=== PATIENT | female | born 1940 | race Caucasian/White ===

== ENCOUNTER 2017-09-09 10:27 | Day surgery (SDC) | payer OTHER, SELFPAY ==
[2017-09-09] VITALS (9 sets, daily range): BP systolic 110–178; BP diastolic 50–81; PULSE 70–83; RESP 11–20; TEMP 36.3–36.7; O2SAT 95–99; BMI 23.5
[2017-09-09] MEDS: SODIUM CHLORIDE 0.9% 1,000 ML 70 ML IV (11:03)
--- NOTE | 2017-09-09 11:07 | PM.HP.1 ---
History of Present Illness Date Patient Seen: 09/09/17 Chief complaint: colonoscopy [id number] Narrative: The patient is a 76-year-old female with history of stage I colon cancer 2011 status post sigmoid colectomy who is here for surveillance colonoscopy. Patient has a history of constipation for which she takes stool softener but otherwise has no significant abdominal symptoms. Last colonoscopy performed August 2012 showed a sigmoid anastomosis and 3 hyperplastic polyps Patient History Family & Social History Social History: household members spouse Meds Home Medications Medication Instructions Recorded Confirmed Type metoprolol tartrate [Lopressor] 100 mg PO Q PM #0 06/26/10 09/09/17 History simvastatin 40 mg PO QDAYPM #0 06/26/10 09/09/17 History VITAMIN D (Vitamin D3) 1,000 unit PO QDAY #0 07/02/10 09/09/17 History vitamin B complex [B 1 tab PO QDAY #0 01/22/16 09/09/17 History Complex-Vitamin B12] fluoxetine [Prozac] 30 mg PO QDAY #0 03/04/16 09/09/17 History aspirin 325 mg PO DAILY 09/09/17 09/09/17 History Allergies Allergy/AdvReac Type Severity Reaction Status Date / Time No Known Allergies Allergy Uncoded 09/09/17 10:51 Review of Systems Review of Systems All systems reviewed & are unremarkable except as noted in HPI and below Exam Vital Signs (past 8 hours): - 09/09/17 10:54 Temperature 97.4 F L Pulse Rate 83 Respiratory Rate 20 Blood Pressure 178/81 H Pulse Oximetry 99 Oxygen Delivery Method Room Air Narrative Exam Narrative: General: Patient is well developed, not in apparent distress Cardiovascular: Regular rate and rhythm, no murmurs, rubs, or gallops; no evidence of edema; no palpable abdominal aortic aneurysm Gastrointestinal: Normoactive bowel sounds, soft, nontender, nondistended, no rebound tenderness, no hepatosplenomegaly, no evidence of hernia; positive surgical scar Assessment & Plan Plan: Assessment/Plan Narrative: 76-year-old female with a history of stage I colon cancer in 2010 who is here for surveillance colonoscopy. She currently has no active GI symptoms Regarding the procedure(s), the risks and potential complications, benefits, and alternatives (including not doing the procedure) were discussed with the patient. The risks include but are not limited to bleeding, infection, perforation which may require surgical intervention, missed lesions, and adverse reactions to sedative medicines. After a question and answer period, the patient agreed to proceed with the procedure(s) and gives informed consent.
--- NOTE | 2017-09-09 11:50 | PM.OP.ENDO ---
Operative Date/Time/Diagnoses Date of procedure: 09/09/17 Procedure Notes Procedure in detail: Surgeon: Tong Valenzuela MD Procedure: Colonoscopy Preoperative diagnosis: History of colon cancer 2010, patient here for surveillance Postoperative diagnosis: End-to-side anastomosis 20 cm proximal to the anal canal, grade 1 internal hemorrhoids Medications: Conscious sedation using 4 mg IV of Midazolam and 100 mcg IV of Fentanyl Preanesthesia Assessment An H and P was performed/updated and the Px?s ASA class is 2. The procedure was discussed in detail with the patient. The potential risks and complications including infection, bleeding, missed lesions, perforation, need for surgery in case of perforation, prolonged hospital stay, and were explained. A brief question and answer period was allotted and once all questions were answered, informed consent was obtained. The patient was brought back to the procedure room and placed on standard monitoring. The patient?s vital signs were monitored continuously throughout the entire procedure. Prior to starting, a timeout was performed to confirm the patient?s identity, allergies, medications, and procedure. Procedure in detail The patient was placed in left lateral decubitus position and once adequate sedation was obtained a MIKI was performed. The rectal examination did not reveal any palpable lesions. The tip of the colonoscope was placed in the anal canal and advanced without difficulty all the way to the cecum which was identified by the appendiceal orifice and ileocecal valve. Careful examination of all abrams of the colon was performed with irrigation of any residual stool. The mucosa throughout the entire colon appeared normal. An end-to-side anastomosis was visualized at 20 cm proximal to the anal canal. The anastomosis appeared healthy with no evidence of nodularity or inflammation. Retroflexion was performed in the rectum which revealed grade 1 internal hemorrhoids The patient tolerated the procedure well and will be brought back to the recovery area to be discharged once criteria are met. The prep was judged to be good/excellent and adequate to identify polyps less than 5 mm. The withdrawal time was 8 min. The total procedure time from initial sedation was 18 mins. Complications There were no complications and estimated blood loss was zero. Recommendations: Resume previous diet Continue outPx medications Repeat colonoscopy in 5 years for surveillance Office follow up as needed An emergency contact number was given to the patient for any complications related to the procedure
[2017-09-09] MEDS: MIDAZOLAM 5 MG/5 ML VIAL IV (12:05)
[2017-09-09] MEDS: fentaNYL 250 MCG/5 ML INJ IV (12:06)
--- NOTE | 2017-09-09 12:17 | PM.DS.1 ---
History of Present Illness Chief complaint: colonoscopy [id number] Narrative: The patient is a 76-year-old female with history of stage I colon cancer 2011 status post sigmoid colectomy who is here for surveillance colonoscopy. Patient has a history of constipation for which she takes stool softener but otherwise has no significant abdominal symptoms. Last colonoscopy performed August 2012 showed a sigmoid anastomosis and 3 hyperplastic polyps Discharge Providers Primary care physician: Gio Viera MD Discharge provider: Tong Valenzuela MD Exam Vital Signs (past 8 hours): - 09/09/17 10:54 Temperature 97.4 F L Pulse Rate 83 Respiratory Rate 20 Blood Pressure 178/81 H Pulse Oximetry 99 Oxygen Delivery Method Room Air Narrative Exam Narrative: General: Patient is well developed, not in apparent distress Cardiovascular: Regular rate and rhythm, no murmurs, rubs, or gallops; no evidence of edema; no palpable abdominal aortic aneurysm Gastrointestinal: Normoactive bowel sounds, soft, nontender, nondistended, no rebound tenderness, no hepatosplenomegaly, no evidence of hernia; positive surgical scar Discharge Plan Discharge Plan Patient Disposition: Home, Self-Care Discharge Med Rec/Prescriptions Prescriptions: Continue metoprolol tartrate [Lopressor] 100 MG tablet 100 mg PO Q PM Qty: 0 RF: 0 simvastatin 40 MG tablet 40 mg PO QDAYPM Qty: 0 RF: 0 VITAMIN D (Vitamin D3) 1,000 unit PO QDAY Qty: 0 RF: 0 vitamin B complex [B Complex-Vitamin B12] 1 EACH tablet 1 tab PO QDAY Qty: 0 RF: 0 fluoxetine [Prozac] 10 MG capsule 30 mg PO QDAY Qty: 0 RF: 0 aspirin 325 mg Tablet 325 mg PO DAILY RF: 0 Discharge Orders: Discharge (Order); Ordered 09/09/17 Ordered By: Tong Valenzuela Provider Discharge Instructions Diet: Diet as Tolerated Visit Report/Discharge Packet Stand Alone Forms: Surgery Discharge Discharge Data Primary Care Provider: Gio Viera V Attending Provider: Tong Valenzuela
== END 2017-09-09 13:15 | disposition home or self-care (01) ==
PROVIDERS: Family Provider Internal Medicine; PCP Internal Medicine; Visit Provider Internal Medicine Gastroenterology
PROC: 0DJD8ZZ Inspection of Lower Intestinal Tract, Via Natural or Artificial Opening Endoscopic (ICD-10-PCS; CPT 45378; principal; 2017-09-09 11:30)
DX: Z85.038 Personal history of other malignant neoplasm of large intestine (principal)
CPT/HCPCS: G0105; J2250; J3010

== ENCOUNTER → 2017-12-11 11:35 | Outpatient (CLI) | payer OTHER, SELFPAY ==
--- NOTE | 2017-12-11 | DI.CT.S_ITS ---
PROCEDURE: CT UE RT WO CON INDICATIONS: PRIMARY OSTEOARTHRITIS OF RIGHT SHOULDER. RIGHT SHOULDER PAIN TECHNIQUE: Noncontrast 1-1.5 mm thick sections acquired from the acromioclavicular joint to the inferior scapula, with coronal and sagittal reformatting. COMPARISON: None. FINDINGS: Image quality: Excellent. Bones: Examination of right shoulder osseous structures shows moderate acromioclavicular joint osteoarthritis and severe glenohumeral joint osteoarthritis. There is significant glenohumeral joint space narrowing with extensive subchondral sclerosis and cyst formation and prominent inferior marginal osteophyte formation. No acute fracture or dislocation is seen. No suspicious bony lesions. No gross rib abnormalities are seen in visualized right upper ribs. Soft tissues: There is suggestion of moderate amount of glenohumeral joint effusion and fluid within the subcoracoid bursa. Possible loose body measures 1 cm in size is noted within the subcoracoid bursa. Small amorphous calcification adjacent to greater tuberosity of humeral head is seen suggestive of calcific tendinitis. Dependent atelectasis in visualized portion of. Right upper lung field is seen. No pleural effusion or pneumothorax. IMPRESSION: 1. Moderate to severe glenohumeral joint osteoarthritis and moderate acromioclavicular joint osteoarthritis. No fracture or dislocation. 2. Moderate amount of fluid is seen within glenohumeral joint and subcoracoid bursa with possible 1 cm loose body in subcoracoid bursa. 3. Calcification adjacent to greater tuberosity of humeral head which may represent calcific tendinitis. Dictated by: Yandel Rose M.D. on 12/11/2017 at 13:25 Approved by: Yandel Rose M.D. on 12/11/2017 at 13:54
== END ==
PROVIDERS: PCP Internal Medicine; Visit Provider Orthopaedic Surgery
DX: M19.011 Primary osteoarthritis, right shoulder (principal); M25.511 Pain in right shoulder; M25.811 Other specified joint disorders, right shoulder
CPT/HCPCS: 73200

== ENCOUNTER → 2018-03-02 14:49 | Outpatient (CLI) | payer OTHER, SELFPAY ==
[2018-03-02 14:59] LABS: Bacteria Urine None Seen; RBC Urine None Seen (0-5/HPF)
[2018-03-02 15:48] LABS: Hemoglobin A1C% w Est Avg Glu 5.5 % (4.0-6.0)
[2018-03-02 15:53] LABS: BUN Creatinine Ratio 24.3 (6-22); Blood Urea Nitrogen 17 mg/dL (7-17); Calcium 9.6 mg/dL (8.4-10.2); Carbon Dioxide 28 mmol/L (22-32); Chloride 98 mmol/L (98-107); Estimated Glomerular Filt Rate > 60.0 mL/min (>60); Glucose 104 mg/dL (80-110); HEMOLYSIS 15 (0-50); Potassium 4.3 mmol/L (3.4-5.1); Sodium 138 mmol/L (137-145)
[2018-03-02 15:54] LABS: Add Manual Diff / Slide Review NO; Basophils Absolute Auto 0 /uL (0-100); Basophils Percent Auto 0.9 % (0-2); Eosinophils Absolute Auto 200 /uL (0-450); Eosinophils Percent Auto 4.3 % (2-4); Hematocrit 37.3 % (36-46); Hemoglobin 12.7 g/dL (12.0-16.0); Lymphocytes Absolute Auto 1300 /uL (1100-4500); Lymphocytes Percent Auto 23.9 % (25-40); Mean Corpuscular Hemoglobin 32.9 PG (26-34); Mean Corpuscular Volume 96.8 fL (80-100); Monocytes Absolute Auto 600 /uL (0-900); Monocytes Percent Auto 11.8 % (3-14); Neutrophils Absolute Auto 3200 /uL (1500-7000); Neutrophils Percent Auto 59.1 % (50-75); Platelet Count 209 X10^3/uL (150-400); Red Blood Cell Count 3.85 X10^6/uL (4.0-5.2); Red Cell Distribution Width 12.7 % (11.6-14.8); White Blood Cell Count 5.3 X10^3/uL (4.5-11.0)
[2018-03-02 17:10] LABS: Appearance Urine UA CLEAR; Bilirubin Urine UA NEGATIVE (NEGATIVE); Color Urine UA YELLOW; Glucose Urine UA NEGATIVE (Negative); Ketones Urine UA TRACE (NEGATIVE); Leukocyte Esterase Urine UA NEGATIVE (NEGATIVE); Nitrite Urine UA NEGATIVE (Negative); Occult Blood Urine UA NEGATIVE (Negative); Protein Urine UA TRACE (Negative); Specific Gravity Urine UA >=1.030 (1.000-1.035); Urobilinogen Urine UA 0.2 E.U./dL (0.2)
[2018-03-02 17:27] LABS: Amorphous Sediment Urine 1+; Calcium Oxalate Crystals Urine Moderate; Squamous Epithelial Cell Urine 0-1 /HPF; WBC Urine 0-1/HPF (0-5/HPF)
[2018-03-02 17:28] LABS: Hyaline Casts Urine 1-5/LPF; Mucus Urine 1+ (Negative); Transferrin 296 mg/dL (206-381)
== END ==
PROVIDERS: PCP Internal Medicine; Visit Provider Orthopaedic Surgery
DX: E61.1 Iron deficiency (principal); N39.0 Urinary tract infection, site not specified; R73.9 Hyperglycemia, unspecified; Z01.818 Encounter for other preprocedural examination
CPT/HCPCS: 36415; 80048; 81001; 83036; 84466; 85025; 87086

== ENCOUNTER 2018-04-05 10:53 | Inpatient (IN) | payer OTHER, SELFPAY ==
[2018-03-22 10:39] VITALS: BMI 23.1
[2018-04-05] VITALS (12 sets, daily range): BP systolic 131–199; BP diastolic 52–93; PULSE 74–113; RESP 15–20; TEMP 36.2–36.8; O2SAT 95–100; BMI 23.0
--- NOTE | 2018-04-05 | DI.RAD.S_ITS ---
PROCEDURE: XR SHOULDER RT 1V INDICATIONS: RIGHT TOTAL SHOULDER TECHNIQUE: 2 views of the shoulder were acquired. COMPARISON: [facility], , SHOULDER MINIMUM 2 VIEW LEFT, 09/26/2013, 15:08. FINDINGS: Bones: Status post right shoulder arthroplasty. Expected postoperative alignment. No fractures or dislocations. No suspicious bony lesions. Visualized ribs appear intact. Soft tissues: Overlying postsurgical soft tissue changes IMPRESSION: Expected postoperative appearance Dictated by: Timothy Benitez M.D. on 04/05/2018 at 16:55 Approved by: Timothy Benitez M.D. on 04/05/2018 at 16:56
[2018-04-05] MEDS: CELECOXIB 200 MG CAPSULE PO (11:44)
[2018-04-05] MEDS: PREGABALIN 75 MG CAPSULE PO (11:44)
[2018-04-05] MEDS: ACETAMINOPHEN 325 MG TABLET 975 MG PO ×2 (11:44→20:26)
[2018-04-05] MEDS: LACTATED RINGERS 1,000 ML 42 ML IV ×2 (11:45→14:10)
--- NOTE | 2018-04-05 12:23 | PM.PREOP ---
Pre-operative Note Interval Note History & Physical reviewed/Exam performed by Physician: Yes Changes to H&P: Yes
[2018-04-05] MEDS: MIDAZOLAM 2 MG/2 ML VIAL IV (13:00)
[2018-04-05] MEDS: fentaNYL 100 MCG/2 ML INJ 50 MCG IV (13:00)
--- NOTE | 2018-04-05 13:10 | SUR.PREOP ---
Block start time [1300] . Monitoring initiated and maintained throughout procedure. Oxygen and medications given per anesthesiologist instructions. Patient remained stable throughout procedure, no adverse reactions noted. Block end time [1305].
--- NOTE | 2018-04-05 13:11 | SUR.PREOP ---
Nerve block done without ultrasound
[2018-04-05] MEDS: CEFAZOLIN 2 GM/100 ML FROZ.PIGGY IV (13:16)
--- NOTE | 2018-04-05 13:54 | SUR.OPER ---
Beach chair with skytron table shoulder positioner. Lower body on padded OR bed. Head in foam padded head cradle, secured with straps. Non-operative arm secured <90 degrees abduction. Pillow under knees. Safety belt at thigh. Cloth tape over blanket over lower legs.
[2018-04-05] MEDS: TRANEXAMIC ACID 1,000 MG VIAL 1000 MG INJ (14:00)
[2018-04-05] MEDS: THROMBIN (RECOMBINANT) 5,000 UNIT VIAL 5000 UNIT TOP (14:01)
[2018-04-05] MEDS: BUPIVACAINE 0.5% W/ EPI (PF) VIAL 30 ML INJ (14:01)
--- NOTE | 2018-04-05 15:47 | PM.OP.1 ---
Operative Date/Time/Diagnoses Date of procedure: 04/05/18 Time of procedure: 15:15 Pre-op diagnosis: Right shoulder osteoarthritis Post-op diagnosis: same Procedure & Clinicians Procedure: Right total shoulder replacement Same procedure as scheduled: Yes Indications: The patient has had progressively worsening right shoulder pain with radiographic changes consistent with arthritis. Non-operative management has failed and the patient has requested total shoulder replacement. The risks, benefits and alternatives to surgery were discussed with the patient prior to proceeding. Risks discussed included, but were not limited to, failure to relieve pain, stiffness, infection, nerve damage, deep venous thrombosis, pulmonary embolism, stroke, coma, heart attack, permanent paralysis and , as well as the potential need for eventual revision of the prosthetic. Surgeon: Stephen Overton [employer] Counter Manager: Viktor Hernandez Click Yes if Unassisted: No Anesthesia Type: General, Peripheral nerve block and Local Operative Notes Findings: Severe osteoarthritis of the glenohumeral joint with a Walch B2 glenoid. There was also very large osteophyte on the humeral head. Closure Type: primary Specimen(s): none sent Prosthetic devices, grafts, tissues, transplants, or devices: Implants used in this procedure were manufactured by the [employer] and included an Altivate size 14 mm short humeral stem, an all-polyethylene pegged E + Altivate 42 mm glenoid, a neutral neck and a 42mm X 20mm Yuma humeral head. Applied: drain(s) and implant(s) Estimated Blood Loss (mL): 100 Blood products transfused: none Procedure in detail: The patient was seen in the pre-operative area, where the patient identified the right shoulder as the operative site and this was marked with my initials. The patient received pre-operative antibiotics, underwent an interscalene block, and was taken to the operating room and placed on the operative table in the supine position. After satisfactory anesthesia, a full ?time out? was performed. The patient was repositioned in the ?beach chair? position using a dedicated positioner. All pressure points were well padded, and the knees were slightly bent to prevent tension on the sciatic nerves. The right arm was prepared from the fingers to the base of the neck with ChloroPrep in the usual fashion and draped through sterile drapes. An approximately 15 cm incision was created, starting at the clavicle above the coracoid process and extended towards the deltoid insertion. The deltopectoral interval was used to access the shoulder. The cephalic vein was taken medially. A self retaining retractor was placed. The upper centimeter of the pectoralis major tendon was released. The ?three sisters? were identified and cauterized. The axillary nerve was palpated and protected throughout the case. The biceps was released from its groove and tenodesed over the top of the pectoralis major tendon. The subscapularis was released from the lesser tuberosity with a subscapularis peel and tagged for later repair. The shoulder was dislocated and a cutting guide was used for the proximal humeral osteotomy in 30 degrees of retroversion. A starter reamer was used followed by the cylindrical reamers. This continued in larger sizes in till cortical bite was achieved. Sequential broaching was then performed until a line to line fit with the reamer occurred. A proximal humeral protector was then placed. We then removed the self-retaining retractor and placed retractors to access the glenoid. The subscapularis was released with a ?360 degree release? with care being taken to protect the axillary nerve with the inferior portion of this procedure. The remnant of labrum and biceps stump were removed. The appropriate size reamer was chosen with the glenoid sizer, and the guide pin placed. Care was taken to orient the pin according to the residual pitka's point glenoid rather than the neoglenoid. I digitally checked the exit point of the pin on the scapula and confirmed to be in the appropriate position. The glenoid was appropriately reamed, which differentially reamed the anterior and superior portions of the glenoid. The guide for the peripheral holes was used, placing all 3 holes on reamed bone, and the center hole enlarged. The trial glenoid was placed with good stability. We then cemented the final implant into place after irrigating the peg holes and drying them with thrombin-soaked Gelfoam. We returned our attention to the humerus, a trial humeral head was applied and a trial reduction performed. Stability was checked with initially excessive posterior translation due to the patient's preoperative posterior subluxation. I increase the neck length to the maximum possible with the Altivate humeral heads. This did not fully resolve the problem. We then opened the Yuma prosthetics and with an additional 2 mm of neck length this problem was resolved. At the conclusion of this there was 50% posterior translation with spontaneous reduction, 45? external rotation with the subscapularis held in the repaired position and approximately 70? of internal rotation in the ?scarecrow? position. This was felt to be satisfactory and the appropriate implants were opened. Five holes were drilled along the humeral osteotomy and #2 TiCron sutures placed for eventual subscapularis repair. The humeral prosthetic was impacted into the humerus. The humeral head was applied when the stem was still slightly proud and impacted to both seat the head and fully seat the stem. The joint was relocated one final time. The joint was irrigated and the subscapularis repaired to the previously placed sutures using Lalit-Gabriel sutures. The top of the subscapularis was closed to the leading edge of the supraspinatus with two figure of 8 #2 TiCron to close the rotator interval. Stability was once again checked and found to be satisfactory after subscapularis closure. A deep drain was placed and brought out supero-laterally. The deltopectoral interval was closed with interrupted 0 Vicryl. The subcutaneous layer was closed with 3-0 Vicryl, and the skin with a running 3-0 V-Lock suture and SteriStrips. An Aquacel Ag dressing was applied, the patient?s arm was placed in a sling, and the patient was taken to recovery having tolerated the procedure well. Complications: none Condition: stable Disposition: PACU Plan for aftercare: The patient will be maintained on a standard total shoulder replacement protocol with passive range of motion limited to 90 degrees forward flexion, 0 degrees external rotation at the side, 0 degrees abduction and internal rotation to the body. The patient will receive aspirin and sequential compression devices for DVT prophylaxis. The patient will be discharged home when safe for the home environment, likely tomorrow.
--- NOTE | 2018-04-05 16:41 | PC.NURSE ---
up from pacu via bed at 1615. Pt awake and alert. Denied any pain. Hemovac in place with bloody drainage in tube but not canister yet. Drsg to rt shoulder CDI
[2018-04-05] MEDS: LACTATED RINGERS 1,000 ML 125 ML IV (17:21)
[2018-04-05] MEDS: ASPIRIN EC 81 MG TABLET PO (20:26)
[2018-04-05] MEDS: CEFAZOLIN 1 GM/50 ML FROZ.PIGGY IV (20:26)
[2018-04-05] MEDS: SIMVASTATIN 40 MG TABLET PO (20:27)
--- NOTE | 2018-04-05 21:20 | PC.NURSE ---
evening note, pt arrived from pacu at 1615. Pt awake and alert, denied pain. Drsg has been CDI and arm in sling. Pt still unable to feel any pain or rt hand and unable to move that hand/fingers. Hand and fingers warm to touch and pulses palpable. Pt has been A&O, calm and cooperative.
[2018-04-06] MEDS: LACTATED RINGERS 1,000 ML 125 ML IV (00:43)
[2018-04-06] MEDS: CEFAZOLIN 1 GM/50 ML FROZ.PIGGY IV (04:41)
--- NOTE | 2018-04-06 04:57 | PC.NURSE ---
Addendum entered by Nelsy Hernández R.N. 04/06/18 06:39: Patient still unable to move R hand. Patient states that she thinks she can feel touch at a dull sensation. Original Note: NOC SHIFT Note: Patient doing well this shift. Patient reports that she can feel this RN touching her arm but it is a dull sensation. Patient able to move shoulder at this time 0500 but is unable to move her hand, fingers in R arm at this time. Patient denies pain at this time. Radial pulse 2+, Dressing clean and intact, hemovac patent.
[2018-04-06 05:29] LABS: Hematocrit 34.5 % (36-46); Hemoglobin 11.7 g/dL (12.0-16.0); Mean Corpuscular HGB Conc 33.9 % (30-36); Mean Corpuscular Hemoglobin 33.5 PG (26-34); Mean Corpuscular Volume 98.6 fL (80-100); Platelet Count 194 X10^3/uL (150-400); White Blood Cell Count 10.4 X10^3/uL (4.5-11.0)
--- NOTE | 2018-04-06 07:50 | PM.DS.1 ---
History of Present Illness Date Patient Seen: 04/06/18 Time Patient Seen: 07:50 Chief complaint: right shoulder [id number] Narrative: The history and physical is contained in the chart in a previously completed note. Please refer to that note for this information. Discharge Providers Date of admission: 04/05/18 10:53 Primary care physician: Gio Viera MD Consults: 04/05/18 16:10 Consult to Discharge Planning Routine Comment: Consult to Physical Therapy Evaluate & Treat Comment: Physician Instructions: Evaluate and Treat Discharge provider: Stephen Overton MD Discharge Date: 04/06/18 Summary Discharge Diagnosis: 1. Right shoulder osteoarthritis 2. Mild acute post hemorrhagic anemia Hospital Course: The patient was admitted to the hospital and taken directly to the operating room on April 05, 2018. She underwent a right total shoulder replacement without complications. At the time of this dictation she is comfortable although the block is still partially in place. It is anticipated she will be ready for discharge today. Status at Discharge Functional status at discharge: independent ambulation Overall status at discharge: patient is progressing back to baseline Time Spent with Patient Less than 30 minutes Exam Vital Signs (past 8 hours): Oxygen Delivery Method Room Air Oxygen Flow Rate 0 Narrative Exam Narrative: Right upper extremity wound is dressed with no drainage on the bandage. Light touch is intact in the axillary nerve distribution however absent in the remainder of the upper extremity. She is able to fire her deltoid but the remainder of her motor function is still absent presumably due to the block. Objective Labs Result Diagrams: 04/06/18 05:00 Labs: Laboratory Results - last 24 hr 04/06/18 05:00 WBC 10.4 RBC 3.50 L Hgb 11.7 L Hct 34.5 L MCV 98.6 MCH 33.5 MCHC 33.9 RDW 13.0 Plt Count 194 Discharge Plan Discharge Plan Patient Disposition: Home Discharge Med Rec/Prescriptions Prescriptions: New acetaminophen 325 mg Tablet 975 mg PO TID 30 Days Qty: 270 RF: 0 aspirin 81 mg Tablet,Delayed Release (Dr/Ec) 81 mg PO BID 42 Days Qty: 84 RF: 0 oxycodone 5 mg Tablet 5 mg PO Q3HR PRN (Reason: Pain, Moderate (4-6)) Qty: 40 RF: 0 Continued simvastatin 40 MG tablet 40 mg PO QDAYPM Qty: 0 RF: 0 vitamin B complex [B Complex-Vitamin B12] 1 EACH tablet 1 tab PO QDAY Qty: 0 RF: 0 metoprolol succinate 100 mg Tablet Extended Release 24 Hr 100 mg PO DAILY RF: 0 docusate sodium 100 mg Tablet 100 mg PO DAILY RF: 0 hydroxyzine HCl 25 mg Tablet 25 mg PO TID PRN (Reason: Spasms) RF: 0 Discontinued aspirin [Aspir-81] 81 mg Tablet,Delayed Release (Dr/Ec) 81 mg PO DAILY RF: 0 Follow up/Referrals: Gio Viera MD [Primary Care Provider] - Stephen Overton MD [Physician] - 2 Weeks Provider Discharge Instructions Diet: Diet as Tolerated and Regular Activity: You may move your right arm in front of your body below shoulder level. Cold/Heat Therapy: Apply ice to the right shoulder for 15 min every hour as needed for pain. Skin/Wound/Dressing Care Report to your healthcare provider any signs of infection, such as:: chills, fever, night sweats, increased pain, unusual drainage and unusual redness Dressing: Leave the dressing intact until your follow-up in the office. You may shower with the dressing in place. If the center strip of the dressing becomes saturated with either water or blood please contact the office. Visit Report/Discharge Packet Instructions: DI for Shoulder Replacement Stand Alone Forms: Surgery Discharge Discharge Data Primary Care Provider: Gio Viera V Attending Provider: Stephen Overton Admit Date/Time: 04/05/18 10:53 Quality VTE Deep Vein Thrombosis/Pulmonary Embolism Present on Admission: No
[2018-04-06 08:00] VITALS: BP 147/60; PULSE 80; RESP 16; TEMP 36.5; O2SAT 99
[2018-04-06] MEDS: POLYETHYLENE GLYCOL 3350 17 GM POWD.PACK PO (08:38)
[2018-04-06] MEDS: VITAMIN B COMPLEX 1 CAPSULE 1 CAP PO (08:38)
[2018-04-06] MEDS: ASPIRIN EC 81 MG TABLET PO (08:38)
[2018-04-06] MEDS: DOCUSATE 100 MG CAPSULE PO (08:38)
--- NOTE | 2018-04-06 10:20 | PT.IIE ---
Current Diagnoses Primary osteoarthritis, right shoulder (04/05/18) Surgery Performed Operation Date: 04/05/18 13:00 Actual Procedures p Total Shoulder Arthroplasty(Right) - Stephen Overton MD Surgical History (Last Updated 03/22/18 @ 11:19 by Elle Sandoval, RN) History of colonoscopy (Acute 09/09/17) History of lumpectomy of left breast (Acute ~02/2016) Hx of appendectomy (Acute) Hx of colectomy (Acute ~06/2010) Hx of heart artery stent (Acute ~1998) Hx of hernia repair (Acute ~1967) Medical History (Last Updated 03/22/18 @ 11:19 by Elle Sandoval RN) Arthritis (Acute) Breast cancer (Acute 01/07/16) Cardiac arrest (Acute ~12/1998) Cervical disc disease (Acute) Colon cancer (Acute 07/02/10) Constipation (Acute) Depression (Acute ~2015) HTN (hypertension) (Acute) Hyperlipidemia (Acute) Myocardial infarct (Acute ~12/1998) Osteoarthritis (Acute) Shoulder pain, bilateral (Acute) Skin cancer (Acute) Physical Therapy Inpatient Evaluation/Re-Eval M1 PT/OT-IP Prior Functional Status Start: 04/06/18 11:42 Freq: NEEDED Status: Active Protocol: Document 04/06/18 10:20 DLM (Rec: 04/06/18 11:57 DLM [email or web address]) Medical Review Prior Functional Status Medical History Reviewed Yes Diet/Fluid Consistency Regular Communication WNL Mobility and Gait Independent without device in community Activities of Daily Living and IADL's Independent, pt is right handed Social History Household Members spouse Living Arrangements House Number of Floors (Floors) One Floor Number of Stairs To Enter/Railing? 0 M2 PT-IP Current Condition Start: 04/06/18 11:42 Freq: NEEDED Status: Active Protocol: Document 04/06/18 10:20 DLM (Rec: 04/06/18 11:57 DLM [email or web address]) Physical Therapy Current Condition Current Condition Evaluation Date 04/06/18 Treatment Diagnosis right total shoulder arthroplasty Onset Date 04/05/18 Precautions Shoulder Precautions Sling PROM Internal Rotation to Body No External Rotation No Abduction Forward Flexion to 90 degrees Weight Bearing Status Weight Bearing Status Non-Weight Bearing M3 PT-IP Subjective Start: 04/06/18 11:42 Freq: NEEDED Status: Active Protocol: Document 04/06/18 10:20 DLM (Rec: 04/06/18 11:57 DLM [email or web address]) Subjective Physical Therapy Visit Type Type Initial Evaluation Visit Start Time 09:40 Visit Stop Time 10:20 Total Visit Minutes 40 Number of COMMERCIAL SINGER Visits 0 Physical Therapy Visit Comments Patient Comments She is having no pain in right shoulder, numbness throughout UE since surgery Patient Goals discharge home with assist from her Spouse Therapy Pain Assessment Pain When Pain Assessed During Mobility Pain Present Pain Present Denied Pain M4 PT-IP Mobility and Gait Start: 04/06/18 11:42 Freq: NEEDED Status: Active Protocol: Document 04/06/18 10:20 DLM (Rec: 04/06/18 11:57 DLM [email or web address]) PT-Bed Mobility Assessment Rolling Type of Rolling Roll to Left Level of Assist Independent Supine to Sit Supine to Sit Minimal Assistance Sit to Supine Sit to Supine Standby Assistance Scooting Scooting to Edge of Bed Independent PT-Transfer Assessment Sit to and From Stand Sit to and from Stand Independent Equipment Transfer Assistive Device None Gait Belt Transfers Transfer Destination Bed Toilet Transfer Technique Stand Step Pivot Transfer Ability Level of Assist Standby Assistance Gait Assessment Gait Gait Assistance Required: Standby Assistance Distance (Feet) 150 Assistive Devices Assistive Device None Gait Belt Gait Deviations General Gait Pattern Within Normal Limits Comments Gait Comments intermittent dizziness looking down that resolves quickly with looking back up PT-Balance Assessment Sitting Balance and Reactions Static Sitting Balance Ability Normal Dynamic Sitting Balance Ability Normal Standing Balance and Reactions Static Standing Balance Ability Good Dynamic Standing Balance Ability Good Device Used none M5 PT-IP Objective Assessments Start: 04/06/18 11:42 Freq: NEEDED Status: Active Protocol: Document 04/06/18 10:20 DLM (Rec: 04/06/18 11:57 DLM [email or web address]) Orientation Orientation/Cognition Level of Alertness Alert Orientation Name Age Birthday Month Date Year Day of Week Place Situation Language Function Ability No Deficits Noted Safety Awareness Understands Safety Issues Memory Description No Deficits Noted Gross Range of Motion Upper Extremity ROM Assessment Right Impaired Impairments post-op restrictions right shoulder, pt reports arthritic changes in left shoulder Lower Extremity ROM Assessment Within Functional Limits Strength Upper Extremity Strength Assessment Right Impaired Shoulder shoulder shrug only Elbow no active movement Wrist no active movement Hand no active movement Lower Extremity Strength Assessment Within Functional Limits Coordination Assessment Gross Coordination Gross Coordination WNL Assessment Coordination Comments exception is right UE which as no functional movement since surgery Sensation Assessment Sensation Gross Sensation Right UE Impaired Light Touch Impaired Proprioception (Position) Impaired Sensation Description Numbness Comments Sensation Comments block during surgery still affecting right UE M6 PT-IP Treatment Start: 04/06/18 11:42 Freq: NEEDED Status: Active Protocol: Document 04/06/18 10:20 DLM (Rec: 04/06/18 11:57 DLM [email or web address]) Physical Therapy Treatment Exercises Exercises Elbow Flexion/Extension Wrist ROM Hand ROM Education Education Provided Precautions Safety Other Treatments Other Treatment Performed educated pt in post-op restictions, demonstrated exercises on left UE since right UE has no active movements, therapist performed passive right hand/wrist/ elbow ROM this visit. Dangled right UE at side outside of sling, educated pt in use of sling M7 PT-IP Assessment and Plan Start: 04/06/18 11:42 Freq: NEEDED Status: Active Protocol: Document 04/06/18 10:20 DLM (Rec: 04/06/18 11:57 DLM [email or web address]) PT Summary Assessment and Plan Potential Rehabilitation Potential Excellent Status of Condition at Evaluation Evolving Summary Impairments Pain ROM Strength Sensation Activity Tolerance Assessment Summary Naz tolerated mobility and gait well this visit. She is alert and motivated to discharge home with her Spouse to assist her. Educated her in her HEP but pt has no active movement in right UE at this time. She verbalizes good understanding of her post -op restrictions. Her Spouse is not present during this visit for training. She appears safe to discharge home with her Spouse when she is medically stable. Goals Other Goals Independent with HEP Days to Meet Goals 1 Frequency of Treatment Frequency Of Treatment Once a Day Treatment Plan Physical Therapy Treatment Plan Therapeutic Exercise Post Op Education Recommendations To Nursing Amount of Assist Needed 1 Person Assist Discharge Recommendations PT Discharge Recommendations Home with Assistance Outpatient PT
--- NOTE | 2018-04-06 11:09 | CM.DANOTE ---
DCP: Case received, EMR reviewed and met with patient. Introduced self and role. DCP template completed with information currently available. Patient is a 77 year old female who admitted yesterday morning to the care of the surgical team. PCP: Dr. Viera. Payer: [facility]. Patient came to hospital for procedure. Had R. Shoulder Replacement. Met with patient in her room. Pleasant, alert and oriented. Lives in [place] with her , David. Stated, she is hopeful to go home today, and is waiting for the numbness in her shoulder to wear off. Asked her about physical therapy, and she stated that she already has outpatient set up. Will be working with physical therapy team before discharge. P: DCP to continue to follow. May be discharging home today, when she is stable, and after working with physical therapy team. Cindy Maddox RN/Grain Elevator Clerk
[2018-04-06] MEDS: OXYCODONE IR 5 MG TABLET PO (11:23)
--- NOTE | 2018-04-06 12:34 | OT.IP.EVAL ---
Current Diagnoses Primary osteoarthritis, right shoulder (04/05/18) Surgery Performed Operation Date: 04/05/18 13:00 Actual Procedures p Total Shoulder Arthroplasty(Right) - Stephen Overton MD Past Medical History (Last Updated 03/22/18 @ 11:19 by Elle Sandoval, RN) Arthritis (Acute) Breast cancer (Acute 01/07/16) Cardiac arrest (Acute ~12/1998) Cervical disc disease (Acute) Colon cancer (Acute 07/02/10) Constipation (Acute) Depression (Acute ~2015) HTN (hypertension) (Acute) Hyperlipidemia (Acute) Myocardial infarct (Acute ~12/1998) Osteoarthritis (Acute) Shoulder pain, bilateral (Acute) Skin cancer (Acute) Surgical History (Last Updated 03/22/18 @ 11:19 by Elle Sandoval RN) History of colonoscopy (Acute 09/09/17) History of lumpectomy of left breast (Acute ~02/2016) Hx of appendectomy (Acute) Hx of colectomy (Acute ~06/2010) Hx of heart artery stent (Acute ~1998) Hx of hernia repair (Acute ~1967) Occupational Therapy Inpatient Evaluation/Re-Eval M1 PT/OT-IP Prior Functional Status Start: 04/06/18 17:55 Freq: NEEDED Status: Active Protocol: Document 04/06/18 12:34 RADHA (Rec: 04/06/18 18:15 RADHA [id number]) Medical Review Prior Functional Status Medical History Reviewed Yes Diet/Fluid Consistency Regular Communication WNL Mobility and Gait Independent without device in community Activities of Daily Living and IADL's Independent Social History Household Members spouse Living Arrangements House Number of Floors (Floors) One Floor Number of Stairs To Enter/Railing? no stairs to enter Home Environment Standard Height Toilet Walk in Shower Home Equipment Hand Held Shower Employment Status Retired Additional Social History Comment can provide 24 hr assist but reports he has a bad back M2 OT-IP Current Condition Start: 04/06/18 17:55 Freq: Status: Active Protocol: Document 04/06/18 12:34 RADHA (Rec: 04/06/18 18:15 RADHA [email or web address]) Occupational Therapy Current Condition Current Condition Evaluation Date 04/06/18 Treatment Diagnosis decreased self care s/p R TSA Diagnosis Onset Date 04/05/18 Post Operative Precautions Shoulder Precautions Sling PROM Internal Rotation to Body No External Rotation No Abduction Forward Flexion to 90 degrees Pendulums Weight Bearing Status Weight Bearing Status Non-Weight Bearing Allowed Weight Bearing Amount (enter % RUE or #) (%) M3 OT- IP Subjective and Pain Start: 04/06/18 17:55 Freq: Status: Active Protocol: Document 04/06/18 12:34 PJM (Rec: 04/06/18 18:15 PJM [email or web address]) OT- Subjective Occupational Therapy Visit Type Type Initial Evaluation Visit Start Time 11:46 Visit Stop Time 12:34 Total Visit Minutes 48 Notes here for education this session. He appears hard of hearing. Both pt/ requiring some repetition of information to ensure understanding. Occupational Therapy Visit Comments Patient Comments I don't know what we did with that prescription for pain pills they gave us at the doctor's office. I have not set up my out pt P.T. yet. When were we supposed to do that? Patient/Caregiver Goals to go home today and regain good functional use of RUE OT Pain Assessment Pain When Pain Assessed After Treatment Pain Present Pain Present Denied Pain Location Right Shoulder Scale Used nerve block in effect w/no motor function or sensation in elbow/distally M4 OT- IP ADL's Start: 04/06/18 17:55 Freq: Status: Active Protocol: Document 04/06/18 12:34 PJM (Rec: 04/06/18 18:15 PJM [email or web address]) OT [id number] General Evaluation Areas Needing Assistance Cutting Food Opening Containers Comments OT Self-Feeding Comments pt needs set up due to unilateral function OT ADL-Grooming General Evaluation Grooming Ability Standby Assistance Areas Needing Assistance Combing/Brushing Hair Face Washing Comments OT Grooming Comments using non dominant L hand OT ADL-Oral Care General Eval Oral Care Ability Standby Assistance Devices Oral Care Devices Electric Toothbrush Comments Oral Care Comments pt educated re: use of R hand as assist within sling but unable to use R hand at present due to no motor function or sensation due to nerve block OT ADL-Dressing General Eval Upper Body Dressing Ability Moderate Assistance Lower Body Dressing Ability Moderate Assistance Areas Needing Assistance Retrieving/Set-up of Clothing Managing Buttons Managing Zippers/Fasteners Button-Up Shirt/Blouse Underpants/Brief Pants/Shorts Shoes Comments OT Dressing Comments provided education to pt/ re: donning and doffing sling and dressing techniques with emphasis on R TSA precautions. They verbalize and demo understanding with repetition of instructions. OT ADL-Toileting General Evaluation Toileting Ability Standby Assistance Areas Needing Assistance Perform Perineal Hygiene OT ADL-Bathing Bathing Type Bathing Type Shower Comments OT Bathing Comments provided education re: shower technique with emphasis on precautions M5 OT- IP IADL's Start: 04/06/18 17:55 Freq: Status: Active Protocol: Document 04/06/18 12:34 PJM (Rec: 04/06/18 18:15 PJM [email or web address]) OT-Instrumental Activities of Daily Living Deficits IADL Deficits Identified Deficits Home Safety Awareness Awareness of Need for Assistance at Home Good Awareness Medication Management Medication Management Caregiver Provides Supervision Money Management Money Management Caregiver Provides Assistance Money Management Comments to assist with check writing until pt able Meal Preparation Meal Preparation Caregiver Provides Assist Meal Preparation Comments to assist until pt able Production Specialist Production Specialist Caregiver Provides Assist Production Specialist Comments to assist until pt able Driving Driving Caregiver Provides Assist Driving Comments to assist until pt able M6 OT- IP Functional Cognition Start: 04/06/18 17:55 Freq: Status: Active Protocol: Document 04/06/18 12:34 PJM (Rec: 04/06/18 18:15 PJM [email or web address]) Cognitive Factors Limiting Selfcare Function Cognitive Ability Level of Alertness Alert Patient Orientation Name Age Birthday Month Date Year Day of Week Place Situation Attention Span Ability Capable of Focused Attention Capable of Sustained Attention Ability to Follow Commands Able to Follow One Step Commands Memory Description Short Term Impaired Safety Awareness Decreased Recall of Precautions Decreased Ability to Apply Precautions Problem Solving Ability Unable to Identify Errors Needs Assist to Identify Solutions Executive Function Ability Unable to Organize Plans Unable to Remember Details Cognitive Comments Cognitive Assessment Comments Pt has some decreased insight into how R TSA precautions will impact her ability to function at home. She did not get RX for pain pills filled prior to surgery as instructed and RN working on getting replacement RX as pt states she does not know where it is. Pt did not schedule out pt P. T. sessions yet. Pt and educated to review pre -op education packet and to call MD office with any questions . OT- Vision and Hearing OT- Hearing Assessment OT- Hearing Assessment WFL OT- Vision Assessment Visual Acuity Glasses For Reading M7 OT- IP Mobility and Balance Start: 04/06/18 17:55 Freq: Status: Active Protocol: Document 04/06/18 12:34 PJM (Rec: 04/06/18 18:15 PJM NRTM) OT- Bed Mobility Assessment Rolling Level of Assistance Contact Guard Assistance Supine to Sit Supine to Sit Assist Minimal Assistance Scooting Scooting to Edge of Bed Standby Assistance OT-Transfer Assessment Sit to and From Stand Sit to and from Stand Standby Assistance Transfers Transfer Ability Standby Assistance Technique Transfer Destination Bed Chair Transfer Technique Stand Step Pivot Comments Mobility Comments pt declines gait belt OT- Gait Assessment Gait Gait Assistance Required: Standby Assistance Distance (Feet) 20 Assistive Devices Assistive Device None OT- Balance Assessment Sitting Balance and Reactions Static Sitting Balance Ability Good Dynamic Sitting Balance Ability Fair Standing Balance and Reactions Static Standing Balance Ability Good Dynamic Standing Balance Ability Fair Comments Other Balance Tests/Deviations/Treatment during dressing tasks : M8 OT- IP Objective Assessments Start: 04/06/18 17:55 Freq: Status: Active Protocol: Document 04/06/18 12:34 PJM (Rec: 04/06/18 18:15 PJ NRTM) OT Gross Range of Motion Upper Extremity Range of Motion Assessment Right Impaired ROM Impairments LUE WFL RUE impaired by nerve block still in effect with no AROM in R elbow, forearm , wrist or fingers OT Strength Upper Extremity Strength Assessment Right Impaired Hand Tip Finisher Strength Hand Dominance Right Comments Strength Comments LUE WFL RUE shoulder NT, 0/5 at elbow, forearm, wrist, fingers OT- Coordination Assessment Upper Extremity Finger to Nose Test Right UE Impaired Finger Tapping Test Right UE Impaired Comments Coordination Comments RUE in sling with absent motor function and sensation from elbow distally OT-Muscle Tone Assessment Comments Muscle Tone Comments RUE hypotonic at present OT Sensation Assessment Comments Summary Comments absent sensation in RUE/hand Edema Edema Present Edema Comments min edema in R hand; pt educated re: fist pumping when motor function returns M9 OT- IP Assessment and Plan Start: 04/06/18 17:55 Freq: Status: Active Protocol: Document 04/06/18 12:34 PJM (Rec: 04/06/18 18:15 PJ NRTM) OT Summary Assessment and Plan Potential Rehabilitation Potential Good Analytic Complexity at Evaluation Low Summary OT Impairments Range of Motion Strength Coordination Sensation Functional Cognition Dressing Bathing Shower Transfers Progress Towards Goals Safe For Discharge Assessment Summary Low complexity OT assessment and all OT education completed today with pt/. Note that they both require repetition of instructions to ensure understanding and they have not followed through on obtaining pain meds or setting up out pt P.T. before surgery as instructed in MD's office. Strong emphasis placed on R TSA precautions and provided education re: donning/doffing sling, adapted techniques for grooming, dressing, bathing, toileting and car transfers. They verbalize understanding of all education and able to assist pt appropriately this session. states he can provide 24 hr assist at d/c. Pt plans to d/c home today. Discharge Recommendations OT Discharge Recommendations Home with 24/7 Assist
--- NOTE | 2018-04-06 12:35 | PC.NURSE ---
Addendum entered by Ana Carvalho R.N. 04/06/18 14:04: Received rx for oxycodone from [facility]. Went over DC meds and instructions with patient and patients spouse, questions answered. Pt taken via WC to vehicle driven by spouse. Pt had all belongings. Original Note: Pt c/o 8/10 pain to right shoulder, given 5mg oxycodone. Pt and spouse reports not knowing or having pain medication at home. Called Dr Overton office to verify which rx were given pre-op. Per nurse at Dr Overton office patient was given paper rx for oxycodone. [facility] to [facility] if rx [facility]. Neither pharmacy filled rx for oxycodone. Patient and spouse unsure if they still have paper rx. Call placed to [facility] for replacement rx.
== END 2018-04-06 14:06 | disposition home or self-care (01) | DRG 483 ==
PROVIDERS: Admitting Provider Orthopaedic Surgery; PCP Internal Medicine; Visit Provider Orthopaedic Surgery
PROC: 0RQJ0ZZ Repair Right Shoulder Joint, Open Approach (ICD-10-PCS; CPT 23472; principal; 2018-04-05 13:00)
DX: M19.011 Primary osteoarthritis, right shoulder (principal); I25.10 Atherosclerotic heart disease of native coronary artery without angina pectoris; I10 Essential (primary) hypertension
CPT/HCPCS: 36415; 73020; 85027; 97110; 97162; 97165; 97535; C1776; J0330; J0690; J1100; J2250; J2704; J3010

== ENCOUNTER → 2018-07-15 11:33 | Outpatient (CLI) | payer OTHER, SELFPAY ==
[2018-04-05 16:28] VITALS: BMI 23.0
--- NOTE | 2018-07-15 | DI.CT.S_ITS ---
PROCEDURE: CT UE LT WO CON INDICATIONS: Pain in left shoulder TECHNIQUE: Noncontrast 1-1.5 mm thick sections acquired from the acromioclavicular joint to the inferior scapula, with coronal and sagittal reformatting. COMPARISON: [facility] [place], CR, XR SHOULDER 2+ VIEWS LEFT, 07/08/2018, 13:43. FINDINGS: Image quality: Excellent. Bones: Moderate to severe glenohumeral joint osteoarthritic changes are seen with near complete loss of joint space, extensive subchondral sclerosis and prominent inferior marginal osteophyte formation. Mild to moderate acromioclavicular joint osteophytic changes are seen. No fracture or dislocation. No suspicious intraosseous lesion. Soft tissues: There is a moderate to large amount of joint effusion distending the joint capsule. Multiple hypodense structures with thin peripheral calcification and central areas of calcification are seen scattered within glenohumeral joint, and measures up to 3 x 2.8 cm in size. There is no gross full-thickness rotator cuff tendon rupture. The visualized right lung field is clear. IMPRESSION: 1. Moderate to severe glenohumeral joint osteoarthritis and mild to moderate acromioclavicular joint osteoarthritis. No fracture or dislocation. 2. No gross full-thickness rotator cuff tendon rupture. Moderate to large joint effusion. 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 Dictated by: Yandel Rose M.D. on 07/15/2018 at 15:56 Approved by: Yandel Rose M.D. on 07/15/2018 at 16:18
== END ==
PROVIDERS: PCP Internal Medicine; Visit Provider Orthopaedic Surgery
DX: M25.512 Pain in left shoulder (principal); M19.012 Primary osteoarthritis, left shoulder; M25.412 Effusion, left shoulder
CPT/HCPCS: 73200

== ENCOUNTER 2018-09-30 07:58 | Inpatient (IN) | payer OTHER, SELFPAY ==
[2018-04-05 16:28] VITALS: BMI 23.0
[2018-09-27 13:02] VITALS: BMI 22.1
[2018-09-30] VITALS (11 sets, daily range): BP systolic 110–179; BP diastolic 40–81; PULSE 74–91; RESP 16–18; TEMP 36.1–36.4; O2SAT 92–100; BMI 22.1
--- NOTE | 2018-09-30 09:01 | DI.RAD.S_ITS ---
PROCEDURE: XR SHOULDER LT 1V INDICATIONS: post op TECHNIQUE: 1 view of the shoulder were acquired. COMPARISON: CT left upper trauma the 07/15/[address] [facility], CR, XR SHOULDER RT 1V, 04/05/2018, 15:39. FINDINGS: Post left shoulder reverse arthroplasty is in expected position. No unexpected complication. IMPRESSION: Satisfactory appearance of the left shoulder reverse arthroplasty. Dictated by: Suhail Jaramillo M.D. on 09/30/2018 at 13:44 Approved by: Suhail Jaramillo M.D. on 09/30/2018 at 13:47
[2018-09-30] MEDS: LACTATED RINGERS 1,000 ML 42 ML IV (09:27)
--- NOTE | 2018-09-30 09:53 | PM.PREOP ---
Pre-operative Note Interval Note History & Physical reviewed/Exam performed by Physician: Yes Changes to H&P: No
[2018-09-30] MEDS: fentaNYL 100 MCG/2 ML INJ IV (10:17)
[2018-09-30] MEDS: MIDAZOLAM 2 MG/2 ML VIAL IV (10:20)
--- NOTE | 2018-09-30 10:51 | PM.DS.1 ---
History of Present Illness Date Patient Seen: 09/30/18 Time Patient Seen: 10:52 Chief complaint: [id number] Narrative: Hospital day 2, postop day 1 following L4-5 hemilaminectomy, L5-S1 TLIF with cage and posterior screw fixation by Dr. Quigley. Patient has remained stable postoperatively. He states that his preoperative leg pain has resolved. Doing well. Pain control with oxycodone. Discharge Providers Date of admission: 09/30/18 07:58 Primary care physician: Gio Viera MD Consults: 09/30/18 09:01 Consult to Anesthesiology Routine Comment: Consulting Provider: Anesthesiologist Reason for consultation: Regional block for post operative pain control Discharge provider: Edward Osuna PA-C Summary Discharge Diagnosis: Status post L4-5 hemilaminectomy, L5-S1 TLIF, cage, posterior screw fixation. Hospital Course: Patient brought to hospital on 09/29/2018 for above noted surgery. He remained stable postoperatively. Patient doing well on postop day 1 and was discharged home. Status at Discharge Cognitive/behavioral status at discharge: oriented Functional status at discharge: uses cane/walker Overall status at discharge: patient is progressing back to baseline Time Spent with Patient Less than 30 minutes Exam Vital Signs (past 8 hours): - 09/30/18 09:15 Temperature 97.6 F Pulse Rate 78 Respiratory Rate 16 Blood Pressure 174/70 H Pulse Oximetry 100 Oxygen Delivery Method Room Air Narrative Exam Narrative: Alert, oriented no acute distress resting in bed. Back. Dressing to lumbar area has some serosanguineous drainage. No signs of infection or inflammation. Legs. No calf pain or swelling. Pulses symmetrical. Good sensation to touch to lower legs. Good strength on foot dorsiflexion plantar flexion. Discharge Plan Discharge Plan Patient Disposition: Home Discharge Med Rec/Prescriptions Prescriptions: No Action simvastatin 40 MG tablet 40 mg PO QDAYPM Qty: 0 RF: 0 metoprolol succinate 100 mg Tablet Extended Release 24 Hr 100 mg PO QPM RF: 0 docusate sodium 100 mg Tablet 100 mg PO DAILY RF: 0 aspirin 81 mg Tablet,Delayed Release (Dr/Ec) 81 mg PO DAILY RF: 0 Follow up/Referrals: Gio Viera MD [Primary Care Provider] - Discharge Data Primary Care Provider: Goi Viera V Attending Provider: Stephen Overton Admit Date/Time: 09/30/18 07:58
[2018-09-30] MEDS: CEFAZOLIN 2 GM/100 ML FROZ.PIGGY IV (11:04)
--- NOTE | 2018-09-30 11:33 | SUR.OPER ---
Beach chair with Schlein shoulder positioner. Lower body on padded OR bed. Head in foam padded head cradle, secured with straps. Non-operative arm secured <90 degrees abduction. Pillow under knees. tape at hips and lower legs over blanket.
[2018-09-30] MEDS: BUPIVACAINE 0.5% W/ EPI (PF) VIAL 30 ML INJ (11:39)
[2018-09-30] MEDS: TRANEXAMIC ACID 1,000 MG VIAL 1000 MG INJ ×2 (11:43→13:07)
--- NOTE | 2018-09-30 13:18 | PM.OP.1 ---
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 Radiographic studies have revealed changes consistent with arthritis and a severe glenoid deformity. They have elected to proceed with reverse total shoulder replacement after discussion of the risks benefits and alternatives. Risks discussed included but were not limited to: Failure to improve, instability, infection, nerve damage, deep venous thrombosis, pulmonary embolism, stroke, coma, myocardial infarction and . Surgeon: Stephen Overton [employer] Consultant: Macrina Weinstein Click Yes if Unassisted: No Anesthesia Type: General, Peripheral nerve block and Local Operative Notes Findings: Severe glenoid retroversion with a centrally no remaining Paleo glenoid. Closure Type: primary Specimen(s): none sent Prosthetic devices, grafts, tissues, transplants, or devices: Implants used in this procedure were manufactured by the [employer] and included a size 10 small shell humeral stem, a 32 neutral RSP glenoid head with retaining screw, a 30 mm screw length glenoid base plate with 4 locking screws measuring 38 mm, 26 mm and 14 mm x 2, there was also a 32 mm neutral +4 E plus humeral socket. Applied: implant(s) Estimated Blood Loss (mL): 100 Blood products transfused: none Tourniquet time (min): 0 Procedure in detail: The patient was seen in the preoperative area where they identified the left shoulder as the operative site and this was marked with my initials. They received preoperative antibiotics and underwent the induction of an interscalene block. They were taken to the operating room and placed on the operating room table in a supine position with the underwent the induction of a general anesthetic. There were then repositioned in the ?beach chair? position using a dedicated positioner. All pressure points were well padded. The knees were slightly bent to prevent tension on the sciatic nerves. The left arm was prepared from the fingertips to the base of the neck with ChloraPrep in the usual fashion and draped through sterile drapes. An approximately 15 cm incision was created starting at the clavicle just above the coracoid and going to the deltoid insertion. The deltopectoral interval was used to access the shoulder taking the vein to the medial side. The vein was protected throughout the case. The upper 1 cm of the pectoralis major was released. The biceps tendon was identified and used as a guide to releasing the remaining subscapularis. The biceps itself was tenodesed over the pectoralis tendon using a suture. The subscapularis was tagged for later repair. The shoulder was dislocated and a proximal humeral osteotomy performed using an extramedullary guide. A proximal humeral protector was then placed. Retractors were placed access the glenoid. A 360 degree release was performed of the remaining subscapularis with care being taken to protect the axillary nerve. The soft tissues were removed circumferentially around the glenoid. Due to the severe deformity of the glenoid we had a custom patient specific guide. Despite several attempts I was unable to fully seat the guide and did not trust the alignment of the central guide pin. I then attempted to place the guide pin with the standard guide but this also was difficult based on the glenoid deformity. Eventually I chose a spot in the center of the inferior glenoid cervical and drilled to the palpable glenoid fossa anteriorly on the scapula. I confirmed the position of the drill point with my finger as being appropriate. The tap was placed and used as a guide for the reamer. The tap was then removed and the glenoid base plate inserted. The peripheral locking screws were then placed through the appropriate guide. The periphery of the base plate was reamed carefully to ensure good fit of the prosthetic. A trial glenoid head was applied. We then turned our attention to the humerus. The proximal humeral protector was removed. Cylindrical reamers were used to size the canal. Broaching was then performed beginning with a small broach and working up until a line to line fit with the reamer was obtained. The guide for the proximal metaphyseal reamer was then applied and the metaphysis was reamed appropriately. The trial metaphyseal portion of the body was then applied to the broach. Trial reductions were performed and the size of the glenoid head and the cup were optimized. Stability was checked in maximal internal and external rotation and range of motion was checked to allow access to the top of the head, internal rotation to an excess of 50? in the ?scarecrow position? and the ability to reach the groin. The appropriate final prosthetic components were then opened. The glenoid head was impacted into position and checked for rotational and axial stability before placing the set screw. Drill holes for repair of the subscapularis were performed and sutures placed. The humeral prosthetic was then impacted into position. The humeral cup was placed. The joint was relocated and irrigated. The subscapularis was repaired to the previously placed sutures. A deep drain was placed. The deltopectoral interval was reapproximated with 0 Vicryl. Subcutaneous layer was closed with interrupted 3-0 Vicryl and skin with a running 3 0 V lock suture. Subcutaneous tissues were then infiltrated with 0.5% Marcaine for postoperative pain control. An Aquacel Ag dressing was applied and the patient's arm was placed in a sling. The patient was then transferred to the recovery room in good condition having tolerated the procedure well. Complications: none Condition: stable Disposition: PACU Plan for aftercare: The patient will be maintained in her sling to coming out for pendulum exercises only for the 1st 6 weeks. She will then be advanced with a strengthening program thereafter. She will be discharged home when comfortable, likely tomorrow morning.
[2018-09-30] MEDS: LACTATED RINGERS 1,000 ML 125 ML IV (15:12)
--- NOTE | 2018-09-30 15:18 | PC.NURSE ---
POST OP ARRIVAL 1425 - pt is alert, speech clear, tracey sips juice, water, no nausea, denies pain, l shoulder sling in place, fingers are pink and warm to touch, pt unable to wiggle during assessment, hemovac compressed w/serosang in tubing, aquacell cdi, ra 98%, p78, scds placed, oriented to room.
[2018-09-30] MEDS: METOPROLOL ER 50 MG TABLET 100 MG PO (17:39)
[2018-09-30] MEDS: SIMVASTATIN 40 MG TABLET PO (20:33)
[2018-09-30] MEDS: ACETAMINOPHEN 325 MG TABLET 975 MG PO (20:33)
[2018-10-01 00:28] VITALS: BP 145/63; PULSE 78; RESP 16; TEMP 36.5; O2SAT 100
--- NOTE | 2018-10-01 03:32 | PC.NURSE ---
Addendum entered by Teodora Hodges R.N. 10/01/18 05:41: Slept at intervals. Continues to deny pain but still has no sensation in left hand/forearm. Radial pulse is strong, fingers are warm with good capillary refill. Original Note: Patient is alert and oriented. Breath sounds CTA with RA sat of 100%. HRR. Denies nausea. BT present and states she has passed flatus since return from surgery. Dressing to left shoulder is CDI. Hemovac is intact and compressed. Left arm is in sling. Good radial pulse and cap refill but has no sensation in hand/forearm. Is able to feel light touch on upper arm. Able to move self in bed. Assisted to bathroom with 1 assist; steady on feet. Denies dysuria, frequency or urgency and is continent. Wearing bilateral calf SCD's. Fall risk score is low; patient calls for assistance appropriately.
[2018-10-01 04:43] VITALS: BP 133/68; PULSE 73; RESP 16; TEMP 36.5; O2SAT 97
[2018-10-01 06:12] LABS: Hematocrit 31.3 % (36-46); Hemoglobin 10.9 g/dL (12.0-16.0); Mean Corpuscular HGB Conc 34.8 % (30-36); Mean Corpuscular Hemoglobin 33.2 PG (26-34); Mean Corpuscular Volume 95.5 fL (80-100); Platelet Count 158 X10^3/uL (150-400); Red Blood Cell Count 3.28 X10^6/uL (4.0-5.2); Red Cell Distribution Width 13.1 % (11.6-14.8); White Blood Cell Count 8.4 X10^3/uL (4.5-11.0)
[2018-10-01 07:30] VITALS: BP 150/71; PULSE 76; RESP 16; TEMP 36.4; O2SAT 97
--- NOTE | 2018-10-01 09:23 | PM.DS.1 ---
History of Present Illness Date Patient Seen: 10/01/18 Time Patient Seen: 09:23 Chief complaint: [id number] Narrative: The history and physical are contained in the chart in a previously completed note. Please refer to that note for this information. Discharge Providers Date of admission: 09/30/18 07:58 Discharge Date: 10/01/18 Primary care physician: Gio Viera MD Consults: 09/30/18 14:47 Consult to Discharge Planning Routine Comment: Consult to Physical Therapy Evaluate & Treat Comment: Physician Instructions: Evaluate and Treat Consult to Respiratory Therapy Evaluate & Treat Comment: Physician Instructions: Evaluate and treat Discharge provider: Stephen Overton MD Summary Discharge Diagnosis: 1. 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 Post hemorrhagic anemia Hospital Course: The patient was admitted to the hospital and taken directly to the operating room on September 30, 2018. She underwent a left reverse total shoulder replacement with no complications. On postoperative day 1 she was very comfortable. Her block was still partially in place. She was medically stable and ready for discharge home. Status at Discharge Cognitive/behavioral status at discharge: oriented Functional status at discharge: independent ambulation Overall status at discharge: patient is progressing back to baseline Time Spent with Patient Less than 30 minutes Exam Vital Signs (past 8 hours): - 10/01/18 04:43 10/01/18 07:30 Temperature 97.7 F 97.5 F L Pulse Rate 73 76 Respiratory Rate 16 16 Blood Pressure 133/68 150/71 H Pulse Oximetry 97 97 Oxygen Delivery Method Room Air Oxygen Flow Rate 0 Narrative Exam Narrative: Left shoulder wound is dressed with no drainage on the bandage. Light touch is intact but reduced in the radial, ulnar and median nerve distributions. Light touch is essentially absent in the muscular cutaneous distribution. Light touch is present in the axillary nerve distribution. The patient has weakness with thumb extension and thumb abduction. She can demonstrate abduction of the fingers, flexion of the elbow and abduction of the shoulder. Objective Labs Result Diagrams: 10/01/18 05:40 Labs: Laboratory Results - last 24 hr 10/01/18 05:40 WBC 8.4 RBC 3.28 L Hgb 10.9 L Hct 31.3 L MCV 95.5 MCH 33.2 MCHC 34.8 RDW 13.1 Plt Count 158 Discharge Plan Discharge Plan Patient Disposition: Home Discharge Med Rec/Prescriptions Prescriptions: New oxycodone 5 mg Tablet 5 mg PO Q3HR PRN (Reason: Pain, Moderate (4-6)) Qty: 40 RF: 0 Continued simvastatin 40 MG tablet 40 mg PO QDAYPM Qty: 0 RF: 0 metoprolol succinate 100 mg Tablet Extended Release 24 Hr 100 mg PO QPM RF: 0 docusate sodium 100 mg Tablet 100 mg PO DAILY RF: 0 aspirin 81 mg Tablet,Delayed Release (Dr/Ec) 81 mg PO DAILY RF: 0 Follow up/Referrals: Gio Viera MD [Primary Care Provider] - Stephen Overton MD [Physician] - 2 Weeks Provider Discharge Instructions Diet: Diet as Tolerated and Regular Activity: You may remove your left arm from the sling for pendulum exercises and to use your hand in front of your body. Lift no more than 1-2 lb with your left hand. Cold/Heat Therapy: Apply ice to the left shoulder for 15 minutes every hour as needed for pain control. Skin/Wound/Dressing Care Report to your healthcare provider any signs of infection, such as:: chills, fever, night sweats, increased pain, unusual drainage and unusual redness Dressing: Leave the dressing intact until your postoperative follow-up. You may shower with the dressing in place. If the central strip of the dressing becomes saturated with either water or blood please call the office to have it changed. Visit Report/Discharge Packet Instructions: DI for Shoulder Replacement Stand Alone Forms: Surgery Discharge Discharge Data Primary Care Provider: Gio Viera V Attending Provider: Stephen Overton Admit Date/Time: 09/30/18 07:58 Quality VTE Deep Vein Thrombosis/Pulmonary Embolism Present on Admission: No
[2018-10-01] MEDS: DOCUSATE 100 MG CAPSULE PO (09:48)
[2018-10-01] MEDS: POLYETHYLENE GLYCOL 3350 17 GM POWD.PACK PO (09:48)
[2018-10-01] MEDS: ACETAMINOPHEN 325 MG TABLET 975 MG PO (09:49)
[2018-10-01] MEDS: ASPIRIN EC 81 MG TABLET PO (09:49)
--- NOTE | 2018-10-01 10:12 | PT.IIE ---
Current Diagnoses Primary osteoarthritis, left shoulder (09/30/18) Surgery Performed Operation Date: 09/30/18 10:15 Actual Procedures p Total Shoulder Arthroplasty - Reverse(Left) - Stephen Overton MD Surgical History (Last Updated 09/27/18 @ 13:27 by Elle Sandoval RN) History of arthroplasty of right shoulder (Acute 04/05/18) History of colonoscopy (Acute 09/09/17) History of lumpectomy of left breast (Acute ~02/2016) Hx of appendectomy (Acute) Hx of colectomy (Acute ~06/2010) Hx of heart artery stent (Acute ~1998) Hx of hernia repair (Acute ~1967) Medical History (Last Updated 03/22/18 @ 11:19 by Elle Sandoval RN) Arthritis (Acute) Breast cancer (Acute 01/07/16) Cardiac arrest (Acute ~12/1998) Cervical disc disease (Acute) Colon cancer (Acute 07/02/10) Constipation (Acute) Depression (Acute ~2015) HTN (hypertension) (Acute) Hyperlipidemia (Acute) Myocardial infarct (Acute ~12/1998) Osteoarthritis (Acute) Shoulder pain, bilateral (Acute) Skin cancer (Acute) Physical Therapy Inpatient Evaluation/Re-Eval M1 PT/OT-IP Prior Functional Status Start: 10/01/18 08:01 Freq: NEEDED Status: Active Protocol: Document 10/01/18 08:26 (Rec: 10/01/18 10:12 [email or web address]) Medical Review Prior Functional Status Medical History Reviewed Yes Diet/Fluid Consistency Regular Communication no deficits noted. Able to make needs known Mobility and Gait independent at home and community without AD. Activities of Daily Living and IADL's Independent with ADLs and IADLs. Social History Household Members spouse Living Arrangements House Number of Floors (Floors) One Floor Number of Stairs To Enter/Railing? no JAYE Home Environment High Toilet Walk in Shower Home Equipment Front Wheel Walker Straight Cane Shower Seat with Backrest Employment Status Retired Additional Social History Comment Pt lives with her in [place]. He is also very active and indepdent but does use SPC/ walker occasionally due to chronic LBP. She has a son lives close [facility]. Pt also had R TSA 6 months ago but now she is fully recovered. M2 PT-IP Current Condition Start: 10/01/18 08:01 Freq: NEEDED Status: Active Protocol: Document 10/01/18 08:26 (Rec: 10/01/18 10:12 [email or web address]) Physical Therapy Current Condition Current Condition Evaluation Date 10/01/18 Treatment Diagnosis R reverse TSA Onset Date 09/30/18 Precautions Shoulder Precautions Sling PROM Internal Rotation to Body No External Rotation No Abduction Forward Flexion to 90 degrees Pendulums Weight Bearing Status Weight Bearing Status Weight Bear as Tolerated M3 PT-IP Subjective Start: 10/01/18 08:01 Freq: NEEDED Status: Active Protocol: Document 10/01/18 08:26 (Rec: 10/01/18 10:12 [email or web address]) Subjective Physical Therapy Visit Type Type Initial Evaluation Visit Start Time 08:26 Visit Stop Time 09:50 Total Visit Minutes 24 Notes Pt has been gotten up to bathroom without AD. Armsling and hemovac in place. Number of INSURANCE CLAIMS ADJUSTER Visits 0 Physical Therapy Visit Comments Patient Comments My L hand still feels numb Patient Goals To return home. Therapy Pain Assessment Pain Present Pain Present Denied Pain M4 PT-IP Mobility and Gait Start: 10/01/18 08:01 Freq: NEEDED Status: Active Protocol: Document 10/01/18 08:26 (Rec: 10/01/18 10:12 [email or web address]) PT-Transfer Assessment Sit to and From Stand Sit to and from Stand Independent Equipment Transfer Assistive Device None Orthotic/Prosthetic Devices or Brace: Yes Transfers Transfer Destination Bed Chair Transfer Technique Stand Step Pivot Transfer Ability Level of Assist Independent Comments Mobility Comments Pt was up in chair upon assessment. Pt was able to stand up with R UE for push off. She transferred herself sit<>stand multiple times with good eccentric control and hand placements. She appears very steady and safe. Gait Assessment Gait Gait Assistance Required: Independent Distance (Feet) 350 Able to Maintain Weight Bearing Status Yes During Gait Assistive Devices Assistive Device None Orthotic/Prosthetic Devices or Brace: Yes Gait Deviations General Gait Pattern Within Normal Limits Factors Limiting Gait Function Factors Limiting Gait Function Limited Range of Motion Pain Comments Gait Comments Pt amb from her room to entire half of the acute care floor without AD with supervision. Appears very steady with normal gait speed. PT-Balance Assessment Sitting Balance and Reactions Static Sitting Balance Ability Normal Dynamic Sitting Balance Ability Normal Standing Balance and Reactions Static Standing Balance Ability Normal Dynamic Standing Balance Ability Normal M5 PT-IP Objective Assessments Start: 10/01/18 08:01 Freq: NEEDED Status: Active Protocol: Document 10/01/18 08:26 (Rec: 10/01/18 10:12 [email or web address]) Orientation Orientation/Cognition Level of Alertness Alert Orientation Name Age Birthday Month Date Year Day of Week Place Situation Language Function Ability No Deficits Noted Safety Awareness Understands Safety Issues Memory Description No Deficits Noted Gross Range of Motion Upper Extremity ROM Assessment Left Impaired Impairments post op precaution. Lower Extremity ROM Assessment Within Functional Limits Strength Upper Extremity Strength Assessment Left Impaired Lower Extremity Strength Assessment Within Functional Limits Coordination Assessment Gross Coordination Gross Coordination WNL Sensation Assessment Sensation Gross Sensation Left UE Impaired Light Touch Impaired Proprioception (Position) Impaired Muscle Tone Muscle Tone WNL Yes M6 PT-IP Treatment Start: 10/01/18 08:01 Freq: NEEDED Status: Active Protocol: Document 10/01/18 08:26 (Rec: 10/01/18 10:12 [email or web address]) Physical Therapy Treatment Education Education Provided Precautions Weight Bearing Status Post-Op Packet Safety Brace Education Donning [place] Patient Other Treatments Other Treatment Performed Donning and doffing for her armsling (elbow at 90 degrees and GH in neutral position) M7 PT-IP Assessment and Plan Start: 10/01/18 08:01 Freq: NEEDED Status: Active Protocol: Document 10/01/18 08:26 (Rec: 10/01/18 10:12 [email or web address]) PT Summary Assessment and Plan Potential Rehabilitation Potential Excellent Status of Condition at Evaluation Stable Summary Impairments Pain ROM Progress Towards Goals Safe For Discharge Assessment Summary Pt is a low complexity who is s/p L reverse TSA. Upon assessment, pt's mobility is at baseline who is able to perform all mobility without AD independently. She has a very good understanding her condition and safety awareness . Educated pt on donning and doffing with her armsling and post op precautions. Pt does not need skilled therapy at this point and expects her to be d/c home with 's assistance as needed. Frequency of Treatment Frequency Of Treatment Discharge Recommendations To Nursing Amount of Assist Needed Standby Assistance Discharge Recommendations PT Discharge Recommendations Home with Assistance
[2018-10-01] MEDS: OXYCODONE IR 10 MG TABLET PO (10:39)
[2018-10-01 11:08] VITALS: PULSE 71; RESP 12; O2SAT 99
--- NOTE | 2018-10-01 11:47 | PC.NURSE ---
Pt is dressed and ready for discharge home with Spouse Brady. IV has been removed. Pt was given a fresh ice pack to help with pain. Reviewed d/c instructions, discussed d/c meds, time of last dose, reviewed stroke education and follow up. Pt out via w/c by MAINTENANCE MECHANIC TECHNICIAN to pov with Spouse and all belongings.
--- NOTE | 2018-10-01 14:38 | CM.DANOTE ---
Discharge Planning/Care Management DCP: assessment: case received and discussed in Team Rounds. EMR reviewed. Pt is a 77 year old female who admitted yesterday for a planned L TSA: Surgeon: Dr. Overton Payer: Eliezer [place]. PCP: Dr. Wally Viera Pt did have a R TSA 6 months ago. PT saw pt today and cleared her for a d/c to home setting as did Dr. Overton. Went to room earlier to check in with pt. She had already left for home in company of her : [id number]. Ortho clinic followup planned. CM Discharge Assessment Start: 10/01/18 14:37 Freq: Status: Discharge Protocol: Document 10/01/18 14:37 ITV (Rec: 10/01/18 14:38 ITV [id number]) Discharge Planning Assessment Advance Directives? No Advance Directives on File No History Provided By Medical Record Prior Living Arrangements House Household Members spouse Independent with ADL's Yes Is patient alert and oriented? Yes Discharge Plan Home Transportation Arrangement Spouse Review Status In Process Pre-Anesthesia Assessment Start: 09/27/18 13:02 Freq: Status: Complete Protocol: Document 09/27/18 13:02 CAB (Rec: 09/27/18 13:32 CAB [id number]) Pre-Anesthesia Assessment PAC Comment RT TSA 04/05/18. Prior cardiology records/clearance scanned to record. Pt states no changes in medical or medication history. Patient Also Known As (DANIEL CRUZ Patient Information Reviewed Via Phone Assessment Assessment Completed With Patient Comment Pt states she has not been advised to have labs/EKG done Primary Care Provider Gio Viera Seen Specialist in Last 12 Months Yes Specialist Seen [employer] Orthopedist Primary Language Burkinan Preferred Language Burkinan Height 162.56 cm Weight 58.513 kg Body Mass Index (BMI) 22.1 Hearing Ability Normal Visual Assist Magnifying Glass Dentition Type Teeth, Natural Present Barriers to Learning None Hx Anesthesia Reactions No Hx Family Anesthesia Reaction No Hx Malignant Hyperthermia No Hx Blood Transfusions No Hx Blood Transfusion Reaction No Anesthesia Review Requested No alcohol intake current alcohol intake frequency 0-2 drinks per day Smoking Status Former smoker Tobacco type cigarettes how long ago did patient quit smoking Quit age 40 Substance Use Type does not use Pain Present Pain Reported Musculoskeletal Symptoms Joint Pain Limited Range of Motion History of Falling (Recent or History of No ) Patient is completely paralyzed or No completely immobile Mental Status Oriented to own ability Is patient on oxygen? No Does patient have SULLIVAN/SOB No Hx Sleep Apnea No CPAP/BIPAP use not prescribed Currently Taking a Beta Soheila Yes: Metoprolol Hx Chest Pain No Hx SOB No Hx Syncope or Dizziness No Anti-Coagulant Therapy Yes: Aspirin 81mg/day-pt will check w/PCP if needed to hold Has a [employer] Yes: Dr. Fraga-last visit 01/18/18 prev scanned to record Cardiac Testing Yes: Nuc stress 01/18/18 prev scanned to record Hx Pacemaker/ICD No Pacemaker Rep Required? No Cardiac Clearance Received Yes Diet Type At Home Regular dysphagia No Bladder Pattern Nocturia Urinary Catheter Present No Hx Urinary Self Catheterization No Diabetes No HgbA1C 5.5 Date 03/02/18 Patient No Lactating No Hx Drug Resistant Organism No Presence of External or Internal Medical Yes: Cardiac stent x 1, right Devices shoulder prosthesis Lives With spouse Prior Living Arrangements House Support System Child/Children Spouse Patient Discharge Plan Description Return Home Feels Safe in Current Environment Yes Been Physically Hurt or Threatened By a No Person in Current Environment Do you have thoughts of harming yourself None or others? Are you currently considering suicide? No Do you have a plan to hurt yourself or No Plan others? Do You Have Any Spiritual Beliefs That No May Affect Your HC Choices? Do You Have Any Cultural Practices That No May Affect Your HC Choices? Comment Prostestant Who Can We Speak to About Patient's Care Family, friends Identifying Code for Release of Patient Declines to issue Information Health Care Proxy/Next of Kin Brady () Nader (son) Health Care Proxy Phone Number Nader: [phone] Nader: [phone] Emergency Contact Name Brady () Nader (son) Emergency Contact Phone Number Nader: [phone] Nader: Advance Directives? No Advance Directives on File No PAC Instructions Durable medical equipment Medications to take/avoid Nasal antibiotic No ETOH/petroleum product on skin DOS NPO Pre-surgical wash Sturdy shoes/comfortable clothes Do not bring valuables and remove jewelry Discharge Planning/Care Management CM Discharge Assessment Start: 10/01/18 14:37 Freq: Status: Discharge Protocol: Document 10/01/18 14:37 ITV (Rec: 10/01/18 14:38 ITV [id number]) Discharge Planning Assessment Advance Directives? No Advance Directives on File No History Provided By Medical Record Prior Living Arrangements House Household Members spouse Independent with ADL's Yes Is patient alert and oriented? Yes Discharge Plan Home Transportation Arrangement Spouse Review Status In Process Pre-Anesthesia Assessment Start: 09/27/18 13:02 Freq: Status: Complete Protocol: Document 09/27/18 13:02 CAB (Rec: 09/27/18 13:32 CAB [id number]) Pre-Anesthesia Assessment PAC Comment RT TSA 04/05/18. Prior cardiology records/clearance scanned to record. Pt states no changes in medical or medication history. Patient Also Known As (YURIY) NANCY Patient Information Reviewed Via Phone Assessment Assessment Completed With Patient Comment Pt states she has not been advised to have labs/EKG done Primary Care Provider Gio Viera Seen Specialist in Last 12 Months Yes Specialist Seen [employer] Orthopedist Primary Language Burkinan Preferred Language Burkinan Height 162.56 cm Weight 58.513 kg Body Mass Index (BMI) 22.1 Hearing Ability Normal Visual Assist Magnifying Glass Dentition Type Teeth, Natural Present Barriers to Learning None Hx Anesthesia Reactions No Hx Family Anesthesia Reaction No Hx Malignant Hyperthermia No Hx Blood Transfusions No Hx Blood Transfusion Reaction No Anesthesia Review Requested No alcohol intake current alcohol intake frequency 0-2 drinks per day Smoking Status Former smoker Tobacco type cigarettes how long ago did patient quit smoking Quit age 40 Substance Use Type does not use Pain Present Pain Reported Musculoskeletal Symptoms Joint Pain Limited Range of Motion History of Falling (Recent or History of No ) Patient is completely paralyzed or No completely immobile Mental Status Oriented to own ability Is patient on oxygen? No Does patient have SULLIVAN/SOB No Hx Sleep Apnea No CPAP/BIPAP use not prescribed Currently Taking a Beta Soheila Yes: Metoprolol Hx Chest Pain No Hx SOB No Hx Syncope or Dizziness No Anti-Coagulant Therapy Yes: Aspirin 81mg/day-pt will check w/PCP if needed to hold Has a [employer] Yes: Dr. Fraga-last visit 01/18/18 prev scanned to record Cardiac Testing Yes: Nuc stress 01/18/18 prev scanned to record Hx Pacemaker/ICD No Pacemaker Rep Required? No Cardiac Clearance Received Yes Diet Type At Home Regular dysphagia No Bladder Pattern Nocturia Urinary Catheter Present No Hx Urinary Self Catheterization No Diabetes No HgbA1C 5.5 Date 03/02/18 Patient No Lactating No Hx Drug Resistant Organism No Presence of External or Internal Medical Yes: Cardiac stent x 1, right Devices shoulder prosthesis Lives With spouse Prior Living Arrangements House Support System Child/Children Spouse Patient Discharge Plan Description Return Home Feels Safe in Current Environment Yes Been Physically Hurt or Threatened By a No Person in Current Environment Do you have thoughts of harming yourself None or others? Are you currently considering suicide? No Do you have a plan to hurt yourself or No Plan others? Do You Have Any Spiritual Beliefs That No May Affect Your HC Choices? Do You Have Any Cultural Practices That No May Affect Your HC Choices? Comment Prostestant Who Can We Speak to About Patient's Care Family, friends Identifying Code for Release of Patient Declines to issue Information Health Care Proxy/Next of Kin Brady () Nader (son) Health Care Proxy Phone Number Nader: [phone] Nader: Emergency Contact Name Brady () Nader (son) Emergency Contact Phone Number Nader: [phone] Nader: Advance Directives? No Advance Directives on File No PAC Instructions Durable medical equipment Medications to take/avoid Nasal antibiotic No ETOH/petroleum product on skin DOS NPO Pre-surgical wash Sturdy shoes/comfortable clothes Do not bring valuables and remove jewelry
== END 2018-10-01 12:06 | disposition home or self-care (01) | DRG 483 ==
PROVIDERS: Admitting Provider Orthopaedic Surgery; PCP Internal Medicine; Visit Provider Orthopaedic Surgery
PROC: 0RRK00Z Replacement of Left Shoulder Joint with Reverse Ball and Socket Synthetic Substitute, Open Approach (ICD-10-PCS; CPT 23472; principal; 2018-09-30 10:15)
DX: M19.012 Primary osteoarthritis, left shoulder (principal); I10 Essential (primary) hypertension; E78.5 Hyperlipidemia, unspecified; Z87.891 Personal history of nicotine dependence; Z96.611 Presence of right artificial shoulder joint
CPT/HCPCS: 36415; 73020; 85027; 94760; 97161; C1776; J0330; J0690; J1100; J2250; J2405; J2704; J3010

== ENCOUNTER → 2018-12-16 11:00 | Outpatient (CLI) | payer OTHER, SELFPAY ==
[2018-09-30 15:05] VITALS: BMI 22.1
--- NOTE | 2018-12-16 | DI.MG.S_ITS ---
BILATERAL DIGITAL SCREENING MAMMOGRAM 3D/2D WITH CAD POST LUMPECTOMY: 12/16/2018 CLINICAL: Routine screening. Personal history of left breast cancer. Comparison is made to exams dated: 01/02/2017 mammogram, 12/27/2015 mammogram, 04/22/2010 mammogram - [facility], 03/31/2016 mammogram - [facility], 12/20/2015 mammogram, and 04/12/2014 mammogram - [facility]. There are scattered fibroglandular elements in both breasts. Current study was also evaluated with a Computer Aided Detection (CAD) system. There are benign post operative findings in the left breast. No significant masses, calcifications, or other findings are seen in either breast. There has been no significant interval change. IMPRESSION: There is no mammographic evidence of malignancy. A 1 year screening mammogram is recommended. This exam was interpreted at Station ID: [id number]. NOTE: For mammograms, a report in lay terms will be sent to the patient. Approximately 15% of breast malignancies will not be visualized mammographically. In the management of a palpable breast mass, a negative mammogram must not discourage biopsy of a clinically suspicious lesion. Electronically Signed By: Cisco morris/tang:12/16/2018 14:28:59 copy to: Gio Viera letter sent: Normal Exam ACR BI-RADS Category 2: Benign Finding(s) 3342F
== END ==
PROVIDERS: PCP Internal Medicine; Visit Provider Internal Medicine
DX: Z12.31 Encounter for screening mammogram for malignant neoplasm of breast (principal); Z85.3 Personal history of malignant neoplasm of breast
CPT/HCPCS: 77063; 77067

== ENCOUNTER 2019-03-10 08:11 | Emergency (ER) | payer OTHER, SELFPAY ==
[2018-09-30 15:05] VITALS: BMI 22.1
[2019-03-10] VITALS (7 sets, daily range): BP systolic 201–218; BP diastolic 82–94; PULSE 68–81; RESP 15–20; TEMP 36.2; O2SAT 97–100; BMI 21.4
--- NOTE | 2019-03-10 08:17 | DI.CT.S_ITS ---
PROCEDURE: CT HEAD/BRAIN WO CON INDICATIONS: syncope, fall head trauma TECHNIQUE: Noncontrast 4.5 mm thick angled axial sections acquired from the foramen magnum to the vertex, with coronal and sagittal reformats. For radiation dose reduction, the following was used: automated exposure control, adjustment of mA and/or kV according to patient size. COMPARISON: None. FINDINGS: Image quality: Excellent. CSF spaces: Basal cisterns are patent. No extra-axial fluid collections. The ventricles are symmetric in size and shape. Brain: No intracranial bleeds or masses. There is cerebral volume loss for age, with resultant ventricular and sulcal prominence. There are periventricular and deep white matter chronic small vessel ischemic changes. There is intracranial internal carotid artery atherosclerosis. Skull and face: Calvarium and visualized facial bones appear intact, without suspicious lesions. There is a left frontal scalp contusion/hematoma. Sinuses: Visualized sinuses and mastoids are clear. IMPRESSION: 1. CT head without acute intracranial abnormalities. 2. Left frontal scalp contusion/hematoma without underlying calvarial fractures. 3. Age-related senescent changes and sequela of chronic small vessel ischemic disease. Dictated by: Butch Jean Baptiste M.D. on 03/10/2019 at 9:13 Approved by: Butch Jean Baptiste M.D. on 03/10/2019 at 9:15
--- NOTE | 2019-03-10 08:19 | DI.CT.S_ITS ---
PROCEDURE: CT FACIAL BONES WO CON INDICATIONS: Syncope, fell on face head trauma TECHNIQUE: Noncontrast 2.5 mm thick axial images acquired from the mandible through the frontal sinuses, with coronal and sagittal reformatting. For radiation dose reduction, the following was used: automated exposure control, adjustment of mA and/or kV according to patient size. COMPARISON: [facility], MR, C-SPINE WITHOUT CONTRAST, 09/06/2008, 14:00. [facility], CT, CT CERVICAL SPINE WO CON, 03/10/2019, 8:20. [facility], CT, CT HEAD/BRAIN WO CON, 03/10/2019, 8:20. FINDINGS: Image quality: Excellent. Bones and teeth: Orbital abrams are intact. Sinus abrams show no fracture or deformity. Nasal bones and septum are intact. Visualized portions of the mandible demonstrate no fractures or subluxation. Zygomatic arches are intact. Pterygoid plates are intact. Visualized portions of the skull base and auditory canals are intact. There is a type II dens fracture seen. Portions of the margins of the dens fracture demonstrate sclerotic margins. Sinuses: Paranasal sinuses are aerated, without fluid levels, mucosal thickening, or mucoceles. Mastoid air cells are aerated. Soft tissues: There is a left forehead hematoma partially seen. No associated underlying fracture is seen. A small amount of soft tissue debris can be seen superficially, as on series 10 image 98. No enlarged lymph nodes. No soft tissue lacerations. Vascular: Visualized vascular structures appear normal in the absence of contrast. Bony vascular foramina and canals are intact. IMPRESSION: Left forehead hematoma partially seen. There is a type II dens fracture seen, with partial sclerotic margins, which is believed to be chronic. Correlate with patient history. No acute appearing displaced fractures are seen. Dictated by: Cam James M.D. on 03/10/2019 at 8:14 Approved by: Cam James M.D. on 03/10/2019 at 8:18
--- NOTE | 2019-03-10 08:19 | DI.CT.S_ITS ---
PROCEDURE: CT CERVICAL SPINE WO CON INDICATIONS: Fall, head trauma syncope TECHNIQUE: Noncontrast 3 mm thick sections acquired from the skull base to the T4 level. Sagittal and coronal reformats were then constructed. For radiation dose reduction, the following was used: automated exposure control, adjustment of mA and/or kV according to patient size. COMPARISON: None. FINDINGS: Image quality: Excellent. Bones: There is a nondisplaced transverse fracture involving the base of the odontoid process of C2 compatible with a type II fracture. Minimal overlying soft tissue edema. No other acute fractures identified. Overall cervical spine alignment is maintained. Craniocervical junction is intact. Moderate multilevel cervical spondylosis with disc space loss, degenerative endplate changes, and endplate osteophyte formation. Variable degrees of bilateral neural foraminal narrowing. Facet joints appear well aligned. No abnormal or asymmetric widening of the posterior elements. Visualized superior ribs are intact. Soft tissues: Prevertebral soft tissues are normal in thickness. No paravertebral hematomas. No apical pneumothoraces. IMPRESSION: 1. Nondisplaced transverse fracture involving the base of the odontoid process of C2 compatible with a type II dens fracture. There is mild overlying perivertebral soft tissue swelling. 2. Moderate multilevel cervical spondylosis. Findings were discussed with Dr. Us of the emergency department at 0928 hrs. Dictated by: Butch Jean Baptiste M.D. on 03/10/2019 at 9:16 Approved by: Butch Jean Baptiste M.D. on 03/10/2019 at 9:35
[2019-03-10 08:38] LABS: Add Manual Diff / Slide Review NO; Basophils Absolute Auto 0 /uL (0-100); Basophils Percent Auto 0.4 % (0-2); Eosinophils Absolute Auto 100 /uL (0-450); Eosinophils Percent Auto 1.2 % (2-4); Hematocrit 40.6 % (36-46); Hemoglobin 13.9 g/dL (12.0-16.0); Lymphocytes Absolute Auto 800 /uL (1100-4500); Lymphocytes Percent Auto 9.7 % (25-40); Mean Corpuscular HGB Conc 34.4 % (30-36); Mean Corpuscular Hemoglobin 32.9 PG (26-34); Mean Corpuscular Volume 95.7 fL (80-100); Monocytes Absolute Auto 500 /uL (0-900); Monocytes Percent Auto 6.4 % (3-14); Neutrophils Absolute Auto 6600 /uL (1500-7000); Neutrophils Percent Auto 82.3 % (50-75); Platelet Count 175 X10^3/uL (150-400); Red Blood Cell Count 4.24 X10^6/uL (4.0-5.2); Red Cell Distribution Width 12.5 % (11.6-14.8); White Blood Cell Count 8.1 X10^3/uL (4.5-11.0)
[2019-03-10 08:44] LABS: Prothrombin Time 11.7 SECONDS (10.1-12.7)
[2019-03-10 08:47] LABS: PTT Partial Thromboplastin Tim 29 SECONDS (26.4-36.2)
[2019-03-10 08:49] LABS: Creatine Kinase 116 U/L (30-135); Magnesium 1.8 mg/dL (1.6-2.3)
[2019-03-10 08:50] LABS: Alanine Aminotransferase 14 IU/L (<35); Albumin Globulin Ratio 1.7 (1.0-2.8); Alkaline Phosphatase 81 U/L (38-126); Aspartate Aminotransferase 26 IU/L (14-36); Bilirubin Total 0.9 mg/dL (0.2-1.3); Blood Urea Nitrogen 8 mg/dL (7-17); Calcium 9.5 mg/dL (8.4-10.2); Carbon Dioxide 22 mmol/L (22-32); Chloride 96 mmol/L (98-107); Estimated Glomerular Filt Rate > 60.0 mL/min (>60); Ethanol (ETOH) 29 mg/dL; Globulin 2.9 g/dL (1.7-4.1); Glucose 97 mg/dL (80-110); HEMOLYSIS 18 (0-50); Potassium 3.6 mmol/L (3.4-5.1); Sodium 136 mmol/L (137-145); Total Protein 7.9 g/dL (6.3-8.2)
--- NOTE | 2019-03-10 08:58 | ED.HEATRA ---
HPI - Head Injury General Chief complaint: Trauma Stated complaint: Syncopal / Neck Pain Time Seen by Provider: 03/10/19 08:17 Source: patient Mode of arrival: Ambulatory History of Present Illness HPI Narrative: CC: Syncope with fall. HPI: The patient is a 78-year-old female who has a history of some mild neck pain. She got up to go to the bathroom at 4:00 a.m. in the morning when she became dizzy and passed out. She fell and landed on her left forehead and face. The patient was found this morning after being on the floor for approximately 3 hours. The patient states that she was on her back. According to the paramedics her blood sugar was 84. She continues to complain of neck pain and better hurts when she moves her neck. This is the only thing that she is complaining of at this time. She states that when she stands up she becomes dizzy and lightheaded and hurts her neck. She denies any chest pain cough shortness of breath difficulty in breathing arm. She has had no change in vision noted diplopia no epistaxis sinus congestion. She denies any palpitations and irregular heartbeat. She has had no abdominal pain nausea vomiting diarrhea incontinence of urine or stool. She denies any history of seizures. She has had no dysuria pyuria hematuria. As a blood thinner the patient takes 1 aspirin per day. She admits to a previous history of a myocardial infarction and cardiac arrest 20 years ago resulting in a cardiac stent. She denies a history of congestive heart failure stroke asthma and diabetes mellitus but has had hypertension. Related Data Home Medications Medication Instructions Recorded Confirmed simvastatin 40 mg PO QDAYPM #0 06/26/10 09/30/18 docusate sodium 100 mg PO DAILY 04/05/18 09/30/18 metoprolol succinate 100 mg PO QPM 04/05/18 09/30/18 aspirin 81 mg PO DAILY 09/27/18 09/30/18 Previous Rx's Medication Instructions Recorded oxycodone 5 mg PO Q3HR PRN #40 tab 10/01/18 Allergies Allergy/AdvReac Type Severity Reaction Status Date / Time No Known Drug Allergies Allergy Verified 03/10/19 08:19 Review of Systems Review of Systems ROS Unobtainable: All systems reviewed & are unremarkable except as noted in HPI and below Patient History Medical History Arthritis (Acute) Breast cancer (Acute 01/07/16) Cardiac arrest (Acute ~12/1998) Cervical disc disease (Acute) Colon cancer (Acute 07/02/10) Constipation (Acute) Depression (Acute ~2015) HTN (hypertension) (Acute) Hyperlipidemia (Acute) Myocardial infarct (Acute ~12/1998) Osteoarthritis (Acute) Shoulder pain, bilateral (Acute) Skin cancer (Acute) Surgical History History of arthroplasty of right shoulder (Acute 04/05/18) History of colonoscopy (Acute 09/09/17) History of lumpectomy of left breast (Acute ~02/2016) Hx of appendectomy (Acute) Hx of colectomy (Acute ~06/2010) Hx of heart artery stent (Acute ~1998) Hx of hernia repair (Acute ~1967) Social History household members: spouse Smoking Status: Former smoker alcohol intake: current Smoking Status: Former smoker alcohol intake frequency: 0-2 drinks per day Substance Use Type: does not use Exam Narrative Exam Narrative: PHYSICAL EXAM: CONSTITUTIONAL: Awake, Alert, Oriented, Coherent, Cooperative in NAD. Does not appear toxic or ill. HEAD: Soft tissue swelling with ecchymosis over her left forehead. She has ecchymosis and mild swelling over her left upper eyelid and lateral eyelid. EENT: PERRL, FROM of eyes, no discharge, no nystagmus No drainage from the ears, Tympanic membranes intact bilaterally, clear EAC No epistaxis or nasal drainage Oral mucosa is moist and pink, posterior pharynx is without erythema or exudate. NECK: Supple, no obvious JVD, Trachea is midline without stridor, no palpable LN or masses. The patient has a cervical collar in place. SPINE: The patient's spine is tender over the upper cervical spine and paraspinous muscles without spasm. No step off deformity. There is no tenderness to palpation over the thoracic or lumbar some muscle. No costovertebral angle tenderness. THORAX: No deformity, retractions, chest wall tenderness, subcutaneous air or crepitice. LUNGS: Clear with symmetrical breath sounds without respiratory distress HEART: Normal heart tones, regular rhythm and rate without murmur. ABDOMEN: Soft, non-tender, normal bowel sounds without guarding, rebound, rigidity or palpable mass. EXTREMITIES: No edema, cyanosis, deformity or tenderness. SKIN: No rash, bruising, petechiae or purpura. NEURO: Awake, alert, oriented, conversive, cranial nerves II-XII are symmetrical and normal, moves all 4 extremities . Gait was not tested with the cervical injury. Initial Vital Signs Initial Vital Signs: Vital Signs Temperature 97.2 F L 03/10/19 08:19 Pulse Rate 78 03/10/19 08:19 Respiratory Rate 15 03/10/19 08:19 Blood Pressure 218/94 H 03/10/19 08:19 Pulse Oximetry 100 03/10/19 08:19 Course Course Course Narrative: 0929: The radiologist called and stated that she she has a nondisplaced transverse fracture through the base of the dens odontoid process/C2. The patient has a cervical collar in place and will be transferred to a trauma center. The CT of her head revealed no acute intracranial hemorrhage or pathology. She has a hematoma and contusion of the left frontal scalp. 0935 a [place] collar has been requested to be placed on the patient. I will call the transfer center at [facility] to transfer this patient to the care of a trauma service and neurosurgeon for cervical spine evaluation. 1023: Just got off the phone to Dr. Brown in the ED at [facility]. She has accepted the patient being transferred. I informed her that we did not do a CTA of her neck at this point. We just placed her in a rigid [place] collar. She will be transferred by ALS ambulance to [facility] to the care of Dr. Brown. Orders Ordered: ED Orders 03/10/19 08:17 CT head/brain wo con Stat 03/10/19 08:19 CT cervical spine wo con Stat CT facial bones wo con Stat 03/10/19 08:20 EKG-12 Lead Stat 03/10/19 08:30 Complete Blood Count AUTO DIFF Stat Comprehensive Metabolic Panel Stat Creatine Kinase Stat Ethanol (ETOH) Stat Magnesium Stat Partial Thromboplastin Time Stat Prothrombin Time INR Stat Troponin I Stat 03/10/19 09:32 XR chest 1V Stat Discontinued Medications Sodium Chloride (Normal Saline 0.9%) 1,000 mls @ 1,000 mls/hr IV BOLUS ONE Stop: 03/10/19 09:16 Last Admin: 03/10/19 09:27 Dose: 1,000 mls/hr Documented by: MEISENB Morphine Sulfate (Morphine Sulfate) 4 mg IV NOW ONE Stop: 03/10/19 08:28 Ondansetron HCl (Zofran) 4 mg IV NOW ONE Stop: 03/10/19 08:18 Vital Signs Vital signs: Vital Signs - 8 hr 03/10/19 08:19 03/10/19 09:14 03/10/19 09:15 Temperature 97.2 F L Pulse Rate 78 71 68 Respiratory Rate 15 15 Blood Pressure 218/94 H Blood Pressure [Left Arm] 215/83 H 215/83 H Pulse Oximetry 100 97 03/10/19 09:16 03/10/19 09:30 Temperature Pulse Rate 71 72 Respiratory Rate 16 Blood Pressure Blood Pressure [Left Arm] 215/83 H 206/82 H Pulse Oximetry 97 MDM - Head Injury Lab Data Result diagrams: 03/10/19 08:30 03/10/19 08:30 Labs: Lab Results 03/10/19 03/10/19 03/10/19 Range/Units 08:30 08:30 08:30 WBC 8.1 (4.5-11.0) X10^3/uL RBC 4.24 (4.0-5.2) X10^6/uL Hgb 13.9 (12.0-16.0) g/dL Hct 40.6 (36-46) % MCV 95.7 (80-100) fL MCH 32.9 (26-34) PG MCHC 34.4 (30-36) % RDW 12.5 (11.6-14.8) % Plt Count 175 (150-400) X10^3/uL Neut % (Auto) 82.3 H (50-75) % Lymph % (Auto) 9.7 L (25-40) % Harnett % (Auto) 6.4 (3-14) % Eos % (Auto) 1.2 L (2-4) % Baso % (Auto) 0.4 (0-2) % Neut # (Auto) 6600 (8360-8227) /uL Lymph # (Auto) 800 L (2720-6411) /uL Harnett # (Auto) 500 (0-900) /uL Eos # (Auto) 100 (0-450) /uL Baso # (Auto) 0 (0-100) /uL PT 11.7 (10.1-12.7) SECONDS INR 1.0 (0.9-1.3) APTT 29 (26.4-36.2) SECONDS Sodium 136 L (137-145) mmol/L Potassium 3.6 (3.4-5.1) mmol/L Chloride 96 L (98-107) mmol/L Carbon Dioxide 22 (22-32) mmol/L BUN 8 (7-17) mg/dL Creatinine 0.40 L (0.52-1.04) mg/dL Estimated GFR > 60.0 (>60) mL/min BUN/Creatinine Ratio 20.0 (6-22) Glucose 97 (80-110) mg/dL Calcium 9.5 (8.4-10.2) mg/dL Magnesium (1.6-2.3) mg/dL Total Bilirubin 0.9 (0.2-1.3) mg/dL AST 26 (14-36) IU/L ALT 14 (<35) IU/L Alkaline Phosphatase 81 (38-126) U/L Total Creatine Kinase (30-135) U/L Troponin I (0.01-0.034) ng/mL Total Protein 7.9 (6.3-8.2) g/dL Albumin 5.0 (3.5-5.0) g/dL Globulin 2.9 (1.7-4.1) g/dL Albumin/Globulin Ratio 1.7 (1.0-2.8) Ethyl Alcohol 29 H ( - 10) mg/dL 03/10/19 Range/Units 08:30 WBC (4.5-11.0) X10^3/uL RBC (4.0-5.2) X10^6/uL Hgb (12.0-16.0) g/dL Hct (36-46) % MCV (80-100) fL MCH (26-34) PG MCHC (30-36) % RDW (11.6-14.8) % Plt Count (150-400) X10^3/uL Neut % (Auto) (50-75) % Lymph % (Auto) (25-40) % Harnett % (Auto) (3-14) % Eos % (Auto) (2-4) % Baso % (Auto) (0-2) % Neut # (Auto) (0007-1176) /uL Lymph # (Auto) (5995-9909) /uL Harnett # (Auto) (0-900) /uL Eos # (Auto) (0-450) /uL Baso # (Auto) (0-100) /uL PT (10.1-12.7) SECONDS INR (0.9-1.3) APTT (26.4-36.2) SECONDS Sodium (137-145) mmol/L Potassium (3.4-5.1) mmol/L Chloride (98-107) mmol/L Carbon Dioxide (22-32) mmol/L BUN (7-17) mg/dL Creatinine (0.52-1.04) mg/dL Estimated GFR (>60) mL/min BUN/Creatinine Ratio (6-22) Glucose (80-110) mg/dL Calcium (8.4-10.2) mg/dL Magnesium 1.8 (1.6-2.3) mg/dL Total Bilirubin (0.2-1.3) mg/dL AST (14-36) IU/L ALT (<35) IU/L Alkaline Phosphatase (38-126) U/L Total Creatine Kinase 116 (30-135) U/L Troponin I < 0.012 (0.01-0.034) ng/mL Total Protein (6.3-8.2) g/dL Albumin (3.5-5.0) g/dL Globulin (1.7-4.1) g/dL Albumin/Globulin Ratio (1.0-2.8) Ethyl Alcohol ( - 10) mg/dL ECG Data Attestation: I personally reviewed and interpreted this ECG as follows: Interpretation: The patient's EKG obtained on March 10 at 8:31 a.m.:: 4 5 reveals a sinus rhythm with a ventricular rate of 73. Her QRS is slightly prolonged at 101 milliseconds. CA interval and QTC are within normal limits. The patient has normal axis. The patient has nonspecific ST segment changes. The patient has very small Q-waves in lead III and AVF. She also has inverted T-wave in lead III and a biphasic T-wave in AVF. This suggests age indeterminate inferior ischemia or possible inferior myocardial infarction. Discharge Plan Departure Patient Disposition: [facility] Clinical Impression: C2 cervical fracture Qualifiers: Encounter type: initial encounter Fracture type: closed Fracture morphology: other dens Fracture alignment: nondisplaced Qualified Code(s): S12.121A - Other nondisplaced dens fracture, initial encounter for closed fracture Syncope Qualifiers: Syncope type: unspecified Qualified Code(s): R55 - Syncope and collapse Fall Qualifiers: Encounter type: initial encounter Qualified Code(s): W19.XXXA - Unspecified fall, initial encounter Head, face & neck injury Qualifiers: Encounter type: initial encounter Qualified Code(s): S19.9XXA - Unspecified injury of neck, initial encounter Prescriptions: No Action simvastatin 40 MG tablet 40 mg PO QDAYPM Qty: 0 RF: 0 metoprolol succinate 100 mg Tablet Extended Release 24 Hr 100 mg PO QPM RF: 0 docusate sodium 100 mg Tablet 100 mg PO DAILY RF: 0 aspirin 81 mg Tablet,Delayed Release (Dr/Ec) 81 mg PO DAILY RF: 0 oxycodone 5 mg Tablet 5 mg PO Q3HR PRN (Reason: Pain, Moderate (4-6)) Qty: 40 RF: 0 Referrals: Gio Viera MD [Primary Care Provider] -
[2019-03-10 09:01] LABS: Troponin I < 0.012 ng/mL (0.01-0.034)
[2019-03-10] MEDS: SODIUM CHLORIDE 0.9% 1,000 ML 1000 ML IV (09:27)
--- NOTE | 2019-03-10 09:32 | DI.RAD.S_ITS ---
PROCEDURE: XR CHEST 1V INDICATIONS: trauma, syncope, fall fracture of C2. TECHNIQUE: One view of the chest was acquired. COMPARISON: [facility], , CHEST 1 VIEW, 08/11/2008, 13:50. FINDINGS: Surgical changes and devices: Bilateral shoulder arthroplasties have occurred in the interim. Surgical clips overlying the left breast are noted. Lungs and pleura: Lungs are clear. No pleural effusions or pneumothorax. Mediastinum: Mediastinal contours appear normal. Heart size is normal. There is aortic atherosclerosis. Bones and chest wall: No suspicious bony lesions. Overlying soft tissues appear unremarkable. IMPRESSION: No acute cardiopulmonary process is evident. Dictated by: Nicholas Jasso M.D. on 03/10/2019 at 8:56 Approved by: Nicholas Jasso M.D. on 03/10/2019 at 8:56
--- NOTE | 2019-03-10 09:59 | PC.NURSE ---
with multiple staff , maintaning cervical stabilization, log rolled for bedpan. post denies parethesia with 4 ext, remain with cervical collar, denies nausea at this time call new given.
--- NOTE | 2019-03-10 10:26 | PC.NURSE ---
is better, deferred pain medication at this time.
[2019-03-10 10:34] LABS: Bacteria Urine None Seen; WBC Urine None Seen (0-5/HPF)
[2019-03-10 10:35] LABS: Appearance Urine UA CLEAR; Bilirubin Urine UA NEGATIVE (NEGATIVE); Color Urine UA YELLOW; Glucose Urine UA NEGATIVE (Negative); Ketones Urine UA 1+ (NEGATIVE); Leukocyte Esterase Urine UA NEGATIVE (NEGATIVE); Nitrite Urine UA NEGATIVE (Negative); Occult Blood Urine UA 1+ (Negative); Protein Urine UA NEGATIVE (Negative); Specific Gravity Urine UA 1.015 (1.000-1.035); Urobilinogen Urine UA 0.2 E.U./dL (0.2)
[2019-03-10 11:08] LABS: RBC Urine 1-5/HPF (0-5/HPF)
[2019-03-10 11:09] LABS: Culture Indicated Urine Cult Not Indicated
== END 2019-03-10 11:10 | disposition short-term general hospital (02) ==
PROVIDERS: Emergency Provider Emergency Medicine; PCP Internal Medicine
DX: S12.121A Other nondisplaced dens fracture, initial encounter for closed fracture (principal); R55 Syncope and collapse; S19.9XXA Unspecified injury of neck, initial encounter; W19.XXXA Unspecified fall, initial encounter; S00.03XA Contusion of scalp, initial encounter
CPT/HCPCS: 36415; 70450; 70486; 71045; 72125; 80053; 80320; 81001; 82550; 83735; 84484; 85025; 85610; 85730; 93005; 96360; 99284

== ENCOUNTER → 2019-07-29 09:01 | Outpatient (CLI) | payer OTHER, SELFPAY ==
[2018-09-30 15:05] VITALS: BMI 22.1
--- NOTE | 2019-07-29 | DI.CT.S_ITS ---
PROCEDURE: CT CERVICAL SPINE WO CON INDICATIONS: Nondisplaced Type II dens fracture, initial encoun TECHNIQUE: Noncontrast 3 mm thick sections acquired from the skull base to the T4 level. Sagittal and coronal reformats were then constructed. For radiation dose reduction, the following was used: automated exposure control, adjustment of mA and/or kV according to patient size. COMPARISON: , CT, CT FACIAL BONES WO CON, 03/10/2019, 8:20. , CT, CT HEAD/BRAIN WO CON, 03/10/2019, 8:20. , CT, CT CERVICAL SPINE WO CON, 03/10/2019, 8:20. FINDINGS: Image quality: Excellent. Bones: There is a known type II dens fracture. This fracture demonstrates 3 mm of displacement and does not demonstrate interval healing change or bony bridging. It is more displaced on the current study than on the prior. Degenerative changes are seen throughout, with moderate to severe disc space narrowing at the C5-C6 and C6-C7 levels. Milder degenerative changes are seen elsewhere. Soft tissues: Prevertebral soft tissues are normal in thickness. No paravertebral hematomas. No apical pneumothoraces. Dense atherosclerotic calcification can be seen involving the aorta, the origins of vessels, and the carotid bifurcations. IMPRESSION: Nonhealing type II dens fracture, which is more displaced on the current study than on the prior CT. Dictated by: Cam James M.D. on 07/29/2019 at 10:52 Approved by: Cam James M.D. on 07/29/2019 at 10:54
== END ==
PROVIDERS: PCP Internal Medicine; Referring Provider Orthopaedic Surgery; Visit Provider Orthopaedic Surgery
DX: S12.112A Nondisplaced Type II dens fracture, initial encounter for closed fracture (principal)
CPT/HCPCS: 72125

== ENCOUNTER → 2020-03-09 18:45 | Outpatient (ROUT) | payer OTHER, SELFPAY ==
[2018-09-30 15:05] VITALS: BMI 22.1
[2020-03-09 19:19] LABS: Aspartate Aminotransferase 22 IU/L (14-36); BUN Creatinine Ratio 16.7 (6-22); Blood Urea Nitrogen 10 mg/dL (7-17); Calcium 9.4 mg/dL (8.4-10.2); Carbon Dioxide 30 mmol/L (22-32); Chloride 95 mmol/L (98-107); Cholesterol 170 mg/dL (140-199); Estimated Glomerular Filt Rate > 60.0 mL/min (>60); Glucose 104 mg/dL (80-110); HDL Cholesterol 96 mg/dL (40-60); HEMOLYSIS < 15 (0-50); LDL Cholesterol Calculated 58 mg/dL (<100); Potassium 4.5 mmol/L (3.4-5.1); Sodium 130 mmol/L (137-145); Triglycerides 79 mg/dL (35-150)
== END ==
PROVIDERS: PCP Internal Medicine; Visit Provider Internal Medicine
DX: I10 Essential (primary) hypertension (principal); E78.2 Mixed hyperlipidemia
CPT/HCPCS: 80048; 80061; 84450

== ENCOUNTER → 2020-06-22 19:10 | Outpatient (ROUT) | payer OTHER, SELFPAY ==
[2018-09-30 15:05] VITALS: BMI 22.1
[2020-06-22 19:55] LABS: Add Manual Diff / Slide Review NO; Basophils Absolute Auto 0 /uL (0-100); Basophils Percent Auto 0.8 % (0-2); Eosinophils Absolute Auto 200 /uL (0-450); Eosinophils Percent Auto 2.8 % (2-4); Hematocrit 37.5 % (36-46); Hemoglobin 12.1 g/dL (12.0-16.0); Lymphocytes Absolute Auto 1100 /uL (1100-4500); Lymphocytes Percent Auto 19.5 % (25-40); Mean Corpuscular HGB Conc 32.3 % (30-36); Mean Corpuscular Hemoglobin 31.4 PG (26-34); Mean Corpuscular Volume 97.2 fL (80-100); Monocytes Absolute Auto 600 /uL (0-900); Monocytes Percent Auto 10.6 % (3-14); Neutrophils Absolute Auto 3700 /uL (1500-7000); Neutrophils Percent Auto 66.3 % (50-75); Platelet Count 197 X10^3/uL (150-400); Red Blood Cell Count 3.85 X10^6/uL (4.0-5.2); Red Cell Distribution Width 12.6 % (11.6-14.8); White Blood Cell Count 5.6 X10^3/uL (4.5-11.0)
[2020-06-22 20:07] LABS: Alanine Aminotransferase 16 IU/L (<35); Albumin 4.4 g/dL (3.5-5.0); Albumin Globulin Ratio 1.7 (1.0-2.8); Alkaline Phosphatase 77 U/L (38-126); Aspartate Aminotransferase 25 IU/L (14-36); BUN Creatinine Ratio 30.8 (6-22); Bilirubin Total 0.5 mg/dL (0.2-1.3); Blood Urea Nitrogen 16 mg/dL (7-17); Calcium 9.4 mg/dL (8.4-10.2); Carbon Dioxide 26 mmol/L (22-32); Chloride 98 mmol/L (98-107); Cholesterol 188 mg/dL (140-199); Estimated Glomerular Filt Rate > 60.0 mL/min (>60); Globulin 2.6 g/dL (1.7-4.1); Glucose 99 mg/dL (80-110); HDL Cholesterol 77 mg/dL (40-60); HEMOLYSIS < 15 (0-50); LDL Cholesterol Calculated 92 mg/dL (<100); Potassium 3.8 mmol/L (3.4-5.1); Sodium 134 mmol/L (137-145); Triglycerides 93 mg/dL (35-150)
[2020-06-22 20:33] LABS: TSH w/ Reflex to FT4 1.56 uIU/mL (0.47-4.68)
== END ==
PROVIDERS: PCP Internal Medicine; Visit Provider Internal Medicine
DX: I25.118 Atherosclerotic heart disease of native coronary artery with other forms of angina pectoris (principal); E78.2 Mixed hyperlipidemia
CPT/HCPCS: 80053; 80061; 84443; 85025

== ENCOUNTER → 2020-07-13 19:05 | Outpatient (ROUT) | payer OTHER, SELFPAY ==
[2018-09-30 15:05] VITALS: BMI 22.1
[2020-07-13 20:14] LABS: Vitamin B12 863 pg/mL (239-931)
== END ==
PROVIDERS: PCP Internal Medicine; Visit Provider Internal Medicine
DX: E53.8 Deficiency of other specified B group vitamins (principal)
CPT/HCPCS: 82607

== ENCOUNTER 2020-09-13 10:30 | Outpatient (RCR) | payer OTHER, SELFPAY ==
[2018-09-30 15:05] VITALS: BMI 22.1
--- NOTE | 2020-08-09 15:05 | PT.OPPOC ---
Physical, Occupational & Speech Therapy At [facility] Current Diagnoses Sciatica, right side (08/09/20) Visit Care Team Role Provider Type Gio Viera MD Attending Provider Physician Primary Care Provider Referring Provider Specialty: Internal Medicine Address: [address] [place] [address], [id number] Email: [email or web address] Plan Of Care PT-OP-T Assessment and Plan Start: 08/09/20 07:28 Freq: Status: Active Protocol: Document 08/09/20 11:00 AMB (Rec: 08/10/20 14:50 AMB [email or web address]) Physical Therapy Assessment Rehab Potential Rehabilitation Potential Good Evaluation Complexity Number of Personal Factors/Comorbidities 3 or More Number of Body Systems Impaired 4 or More Clinical Presentation at Evaluation Evolving Impairments Impairments Activity Tolerance,Functional Mobility,Gait,Pain,Strength Goals Three Impairment HEP Short Term Goal (STG) NANCY will be independent with a HEP for core stability and LE flexibility. STG Duration 4 weeks Two Impairment Pain Short Term Goal (STG) NANCY will report 4/10 back pain at worst with standing for 10 minutes. STG Duration 4 weeks Group Home Goal (LTG) NANCY will show improved sciatic n mobility by no increase in pain with SLR with ankle dorsiflexion and adduction. LTG Duration 8 weeks One Impairment Gait Short Term Goal (STG) NANCY will ambulate without AD for 5 minutes over smooth terrain without an increase in baseline pain. STG Duration 4 weeks Group Home Goal (LTG) NANCY will ambulate over uneven terrain for 10 minutes without an increase in baseline pain . LTG Duration 8 weeks Assessment Summary Assessment NANCY attends physical therapy with right sided low back pain that radiates down the back of the right leg with walking and standing. The pain is fairly variable, with some days the pt unable to walk without severe pain and other days she can walk through the grocery store for a few minutes without significant pain. She did have more pain and less strength in the R hip , denies pain with sitting, did have sciatic n tension with testing. She will benefit core stabilization and R LE mobility training but with her memory impairments she will need extra time to make sure exercises are going well/appropriate. 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 Physical Therapy Plan Frequency and Duration Frequency of Treatment 2x/Week Duration of Treatment 8 weeks Plan of Care Start Date 08/09/20 Plan of Care End Date 10/04/20 Therapeutic Interventions Therapeutic Interventions Balance Training,Gait Training ,Home Exercise Program,Joint Mobilizations,Manual Therapy, Neuromuscular Re-education, Self-Care/Home Management,Soft Tissue Mobilization, Therapeutic Activities, Therapeutic Exercises Modalities Cold Pack/Ice Massage,Electric Stimulation,Hot Packs Next Visit Focus/Plan Next Note Type Treatment Note Next Visit Plan Establish HEP- careful with progression due to memory impairment Plan of Care Dates Plan of Care Start Date 08/09/20 Plan of Care End Date 10/04/20 Electronically Signed by: Andie Whitmore, PT 08/10/20 1280 Please Sign and Return: I have reviewed this Plan of Care and certify that the skilled therapy services above are required to meet the patient?s needs. Physician Signature Date Printed Name and Credentials Clinical Instructor Signature Printed Name and Credentials
--- NOTE | 2020-08-09 15:05 | PT.OIE ---
Current Diagnoses Sciatica, right side (08/09/20) Past Medical History (Last Reviewed 03/10/19 @ 09:03 by Chuck Us MD) Arthritis Breast cancer (01/07/16) Cardiac arrest (~12/1998) Cervical disc disease Colon cancer (07/02/10) Constipation Depression (~2015) History of arthroplasty of right shoulder (04/05/18) History of colonoscopy (09/09/17) History of lumpectomy of left breast (~02/2016) HTN (hypertension) Hx of appendectomy Hx of colectomy (~06/2010) Hx of heart artery stent (~1998) Hx of hernia repair (~1967) Hyperlipidemia Myocardial infarct (~12/1998) Osteoarthritis Shoulder pain, bilateral Skin cancer Past Surgical History (Last Reviewed 03/10/19 @ 09:03 by Chuck Us MD) History of arthroplasty of right shoulder (04/05/18) History of colonoscopy (09/09/17) History of lumpectomy of left breast (~02/2016) Hx of appendectomy Hx of colectomy (~06/2010) Hx of heart artery stent (~1998) Hx of hernia repair (~1967) Visit Care Team Role Provider Type Gio Viera MD Attending Provider Physician Primary Care Provider Referring Provider Specialty: Internal Medicine Address: [address] [place] [address], [facility] Email: [email or web address] Physical Therapy Initial Evaluation PT-OP-A Visit Information Start: 08/09/20 07:28 Freq: Status: Active Protocol: Document 08/09/20 15:45 AMB (Rec: 08/09/20 16:01 AMB [email or web address]) Out-Patient Physical Therapy Visit Information Visit Information Visit Type Initial Evaluation Visit Start Time 11:00 Visit Stop Time 11:45 Total Visit Minutes 45 Visit Number 1 Precautions Precautions 18 month old C2 fracture per pt's son neck should not be messed with, fracture healed poorly PT-OP-B Current Condition Start: 08/09/20 07:28 Freq: Status: Active Protocol: Document 08/09/20 11:00 AMB (Rec: 08/09/20 11:21 AMB [id number]) Current Condition History of Current Condition Onset Date March 2020 Current Complaints R sided low back pain that radiates into the R leg History of Current Condition R sciatica staying the same since March, Walking and standing increase the pain. Pt lives alone, is in the hospital, and if/when he comes home he would have home health to help out. Son helps out but he does not live with them usually. Son lives in [place]. Single level home no stairs to enter, w/c accesible . Low back pain described as a deep ache that goes down the right leg and into the bottom of the foot. Has tried ice and sitting seems to help. Denies recent falls. Previously able to walk through [employer] without pain, now pain is variable, some days can't walk to the mailbox , other days are ok. Guesstimate, 3x/month where pain is really bad to the point of lying in bed. Treatment Goals Patient/Caregiver Goals Be able to walk without pain Prior Functional Status Baseline Function- ADL's Modified Independent Baseline Function- Mobility Modified Independent Current Functional Impairments (Reported) Functional Limitations- ADL's Pt ambulates without AD but some days is very painful and others can manage short distances Personal Factors Other Personal Factors That May Effect Dementia, Colon CA about 7 Therapy/Recovery years ago, Breast CA about 2-3 years ago, ME at age 55, Bilateral total shoulder replacements. History of fall with fracture of C2 that per pt and son did not heal well. PT-OP-C Subjective Start: 08/09/20 07:28 Freq: Status: Active Protocol: Document 08/09/20 15:45 AMB (Rec: 08/09/20 16:01 AMB [email or web address]) Patient Questionnaires Lower Extremity Functional Scale LEFS Score 28 Oswestry Low Back Index Oswestry Score 44 OP-PT Pain Assessment Comments Pain Comments 7/10 in low back and down right leg PT-OP-F Manual Assessment Start: 08/09/20 07:28 Freq: Status: Active Protocol: Document 08/09/20 15:45 AMB (Rec: 08/09/20 16:01 AMB [email or web address]) Manual Assessments Soft Tissue Assessment Soft Tissue Mobility Assessment Pt reports tension throughout hamstring and calf but not significantly tender to palpation, stiffness throughout lumbar spine with PAs, tender more in piriformis /glutes, but pt has a hard time answering questions about pain at times. PT-OP-G Mobility & Gait Start: 08/09/20 07:28 Freq: Status: Active Protocol: Document 08/09/20 15:45 AMB (Rec: 08/09/20 16:01 AMB [email or web address]) OP Gait Assessment Comments Gait Comments Mildly antalgic gait without AD. PT-OP-J Posture/Palpation/Skin Start: 08/09/20 07:28 Freq: Status: Active Protocol: Document 08/09/20 15:45 AMB (Rec: 08/09/20 16:01 AMB [email or web address]) Posture Evaluation Comments Posture Comments In standing high R iliac crest and high right shoulder PT-OP-K Range of Motion Start: 08/09/20 07:28 Freq: Status: Active Protocol: Document 08/09/20 15:45 AMB (Rec: 08/09/20 16:01 AMB [email or web address]) Lumbar Spine Range of Motion Lumbar Spine Active Degrees Testing Position Standing Extension 10 Lateral Flexion Left 20 Lateral Flexion Right 10 Comments Full flexion ROM, stiffness with exxtension and right sidebending PT-OP-L Special Tests Start: 08/09/20 07:28 Freq: Status: Active Protocol: Document 08/09/20 15:45 AMB (Rec: 08/09/20 16:01 AMB [email or web address]) Special Tests Neural Special Tests- Lower Body Sciatic Nerve Tension Test Results + Comments Good hamstring flexibility but tension/pain increases with ankle dorsiflexion and adduction PT-OP-M Strength Start: 08/09/20 07:28 Freq: Status: Active Protocol: Document 08/09/20 15:45 AMB (Rec: 08/09/20 16:01 AMB [email or web address]) Hip Strength Hip Manual Muscle Testing Right Flexion (L2) 4- Good- Extension (S1) 4- Good- Left Flexion (L2) 4 Good Extension (S1) 4 Good Knee Strength Knee Manual Muscle Testing Right Flexion (S2) 4+ Good+ Extension (L3) 4+ Good+ Left Flexion (S2) 4+ Good+ Extension (L3) 4+ Good+ Ankle/Foot Strength Ankle and Foot Manual Muscle Testing Right Dorsiflexion (L4) 4 Good Plantarflexion (S1) 4 Good Left Dorsiflexion (L4) 4+ Good+ Plantarflexion (S1) 4+ Good+ PT-OP-T Assessment and Plan Start: 08/09/20 07:28 Freq: Status: Active Protocol: Document 08/09/20 11:00 AMB (Rec: 08/10/20 14:50 AMB [email or web address]) Physical Therapy Assessment Rehab Potential Rehabilitation Potential Good Evaluation Complexity Number of Personal Factors/Comorbidities 3 or More Number of Body Systems Impaired 4 or More Clinical Presentation at Evaluation Evolving Impairments Impairments Activity Tolerance,Functional Mobility,Gait,Pain,Strength Goals Three Impairment HEP Short Term Goal (STG) NANCY will be independent with a HEP for core stability and LE flexibility. STG Duration 4 weeks Two Impairment Pain Short Term Goal (STG) NANCY will report 4/10 back pain at worst with standing for 10 minutes. STG Duration 4 weeks Prison Goal (LTG) NANCY will show improved sciatic n mobility by no increase in pain with SLR with ankle dorsiflexion and adduction. LTG Duration 8 weeks One Impairment Gait Short Term Goal (STG) NANCY will ambulate without AD for 5 minutes over smooth terrain without an increase in baseline pain. STG Duration 4 weeks Prison Goal (LTG) NANCY will ambulate over uneven terrain for 10 minutes without an increase in baseline pain . LTG Duration 8 weeks Assessment Summary Assessment NANCY attends physical therapy with right sided low back pain that radiates down the back of the right leg with walking and standing. The pain is fairly variable, with some days the pt unable to walk without severe pain and other days she can walk through the grocery store for a few minutes without significant pain. She did have more pain and less strength in the R hip , denies pain with sitting, did have sciatic n tension with testing. She will benefit core stabilization and R LE mobility training but with her memory impairments she will need extra time to make sure exercises are going well/appropriate. She may also need body mechanics instruction depending on how much help her needs if he comes home from terminal makeup operator care. Physical Therapy Plan Frequency and Duration Frequency of Treatment 2x/Week Duration of Treatment 8 weeks Plan of Care Start Date 08/09/20 Plan of Care End Date 10/04/20 Therapeutic Interventions Therapeutic Interventions Balance Training,Gait Training ,Home Exercise Program,Joint Mobilizations,Manual Therapy, Neuromuscular Re-education, Self-Care/Home Management,Soft Tissue Mobilization, Therapeutic Activities, Therapeutic Exercises Modalities Cold Pack/Ice Massage,Electric Stimulation,Hot Packs Next Visit Focus/Plan Next Note Type Treatment Note Next Visit Plan Establish HEP- careful with progression due to memory impairment
--- NOTE | 2020-08-15 16:43 | PT.OTN ---
Current Diagnoses Sciatica, right side (08/15/20) Physical Therapy Treatment Note PT-OP-A Visit Information Start: 08/09/20 07:28 Freq: Status: Active Protocol: Document 08/15/20 14:30 AW (Rec: 08/15/20 14:30 AW [id number]) Out-Patient Physical Therapy Visit Information Visit Information Visit Type Treatment Note Visit Note Pt arrives with her son, Nader. Visit Start Time 13:45 Visit Stop Time 14:30 Total Visit Minutes 45 Visit Number 2 Precautions Precautions 18 month old C2 fracture per pt's son neck should not be messed with, fracture healed poorly PT-OP-B Current Condition Start: 08/09/20 07:28 Freq: Status: Active Protocol: Document 08/09/20 11:00 AMB (Rec: 08/09/20 11:21 AMB [id number]) Current Condition History of Current Condition Onset Date March 2020 Current Complaints R sided low back pain that radiates into the R leg History of Current Condition R sciatica staying the same since March, Walking and standing increase the pain. Pt lives alone, is in the hospital, and if/when he comes home he would have home health to help out. Son helps out but he does not live with them usually. Son lives in [place]. Single level home no stairs to enter, w/c accesible . Low back pain described as a deep ache that goes down the right leg and into the bottom of the foot. Has tried ice and sitting seems to help. Denies recent falls. Previously able to walk through [employer] without pain, now pain is variable, some days can't walk to the mailbox , other days are ok. Guesstimate, 3x/month where pain is really bad to the point of lying in bed. Treatment Goals Patient/Caregiver Goals Be able to walk without pain Prior Functional Status Baseline Function- ADL's Modified Independent Baseline Function- Mobility Modified Independent Current Functional Impairments (Reported) Functional Limitations- ADL's Pt ambulates without AD but some days is very painful and others can manage short distances Personal Factors Other Personal Factors That May Effect Dementia, Colon CA about 7 Therapy/Recovery years ago, Breast CA about 2-3 years ago, [place] at age 55, Bilateral total shoulder replacements. History of fall with fracture of C2 that per pt and son did not heal well. PT-OP-C Subjective Start: 08/09/20 07:28 Freq: Status: Active Protocol: Document 08/15/20 14:30 AW (Rec: 08/15/20 14:30 AW [id number]) OP-PT Pain Assessment Comments Pain Comments 3/10 in low back and down right leg today at beginning of session. PT-OP-F Manual Assessment Start: 08/09/20 07:28 Freq: Status: Active Protocol: Document 08/09/20 15:45 AMB (Rec: 08/09/20 16:01 AMB [email or web address]) Manual Assessments Soft Tissue Assessment Soft Tissue Mobility Assessment Pt reports tension throughout hamstring and calf but not significantly tender to palpation, stiffness throughout lumbar spine with PAs, tender more in piriformis /glutes, but pt has a hard time answering questions about pain at times. PT-OP-G Mobility & Gait Start: 08/09/20 07:28 Freq: Status: Active Protocol: Document 08/09/20 15:45 AMB (Rec: 08/09/20 16:01 AMB [email or web address]) OP Gait Assessment Comments Gait Comments Mildly antalgic gait without AD. PT-OP-J Posture/Palpation/Skin Start: 08/09/20 07:28 Freq: Status: Active Protocol: Document 08/09/20 15:45 AMB (Rec: 08/09/20 16:01 AMB [email or web address]) Posture Evaluation Comments Posture Comments In standing high R iliac crest and high right shoulder PT-OP-K Range of Motion Start: 08/09/20 07:28 Freq: Status: Active Protocol: Document 08/09/20 15:45 AMB (Rec: 08/09/20 16:01 AMB [email or web address]) Lumbar Spine Range of Motion Lumbar Spine Active Degrees Testing Position Standing Extension 10 Lateral Flexion Left 20 Lateral Flexion Right 10 Comments Full flexion ROM, stiffness with exxtension and right sidebending PT-OP-L Special Tests Start: 08/09/20 07:28 Freq: Status: Active Protocol: Document 08/09/20 15:45 AMB (Rec: 08/09/20 16:01 AMB [email or web address]) Special Tests Neural Special Tests- Lower Body Sciatic Nerve Tension Test Results + Comments Good hamstring flexibility but tension/pain increases with ankle dorsiflexion and adduction PT-OP-M Strength Start: 08/09/20 07:28 Freq: Status: Active Protocol: Document 08/09/20 15:45 AMB (Rec: 08/09/20 16:01 AMB [email or web address]) Hip Strength Hip Manual Muscle Testing Right Flexion (L2) 4- Good- Extension (S1) 4- Good- Left Flexion (L2) 4 Good Extension (S1) 4 Good Knee Strength Knee Manual Muscle Testing Right Flexion (S2) 4+ Good+ Extension (L3) 4+ Good+ Left Flexion (S2) 4+ Good+ Extension (L3) 4+ Good+ Ankle/Foot Strength Ankle and Foot Manual Muscle Testing Right Dorsiflexion (L4) 4 Good Plantarflexion (S1) 4 Good Left Dorsiflexion (L4) 4+ Good+ Plantarflexion (S1) 4+ Good+ PT-OP-Q Treatments Start: 08/09/20 07:28 Freq: Status: Active Protocol: Document 08/15/20 14:30 AW (Rec: 08/15/20 14:30 AW [id number]) Therapeutic Exercises Supine Exercises sciatic mobilization Supine Exercise Name sciatic glide Side right Reps/Minutes 30' x 2 Comments for HEP LTR Supine Exercise Name 10 x 2 Side bilateral Comments for HEP SKTC Supine Exercise Name SKTC Side bilateral Reps/Minutes 30 sec x 4 Comments for HEP piriformis stretch Supine Exercise Name piriformis stretch Side right Reps/Minutes 45 sec x 3 Comments for HEP Sidelying Exercises rhythmic initiation Sidelying Exercise Name rhythmic initiation Side right Resistance manual Reps/Minutes x10 Comments pt pulls hip vs PT resistance into depression/extension Self-Care/Home Management Treatment Education Patient Education Home Exercise Program Other Education Reviewed exercises with pt and her son. See copy scanned to EMR PT-OP-T Assessment and Plan Start: 08/09/20 07:28 Freq: Status: Active Protocol: Document 08/15/20 14:30 AW (Rec: 08/15/20 16:43 AW [email or web address]) Physical Therapy Assessment Goals Three Impairment HEP Short Term Goal (STG) NANCY will be independent with a HEP for core stability and LE flexibility. STG Duration 4 weeks Two Impairment Pain Short Term Goal (STG) NANCY will report 4/10 back pain at worst with standing for 10 minutes. STG Duration 4 weeks Cable Re[employer] Goal (LTG) NANCY will show improved sciatic n mobility by no increase in pain with SLR with ankle dorsiflexion and adduction. LTG Duration 8 weeks One Impairment Gait Short Term Goal (STG) NANCY will ambulate without AD for 5 minutes over smooth terrain without an increase in baseline pain. STG Duration 4 weeks Longterm Goal (LTG) NANCY will ambulate over uneven terrain for 10 minutes without an increase in baseline pain . LTG Duration 8 weeks Assessment Summary Assessment NANCY attended with her son, Maximiliano , today, who states he will be able to help pt with recall and form for HEP. Initiated hip and lumbar mobility exercise which pt tolerated well. Handout with available video was provided to improve independent performance. Physical Therapy Plan Frequency and Duration Frequency of Treatment 2x/Week Duration of Treatment 8 weeks Plan of Care Start Date 08/09/20 Plan of Care End Date 10/04/20 Therapeutic Interventions Therapeutic Interventions Balance Training,Gait Training ,Home Exercise Program,Joint Mobilizations,Manual Therapy, Neuromuscular Re-education, Self-Care/Home Management,Soft Tissue Mobilization, Therapeutic Activities, Therapeutic Exercises Modalities Cold Pack/Ice Massage,Electric Stimulation,Hot Packs Next Visit Focus/Plan Next Note Type Treatment Note Next Visit Plan Assess response to initial HEP . Add core stabilization as tolerated.
--- NOTE | 2020-08-24 09:49 | PT.OTN ---
Current Diagnoses Sciatica, right side (08/24/20) Physical Therapy Treatment Note PT-OP-A Visit Information Start: 08/09/20 07:28 Freq: Status: Active Protocol: Document 08/24/20 09:03 SP (Rec: 08/24/20 12:06 SP [id number]) Out-Patient Physical Therapy Visit Information Visit Information Visit Type Treatment Note Visit Start Time 09:03 Visit Stop Time 09:49 Total Visit Minutes 46 Visit Number 3 Number of VIDEO JOURNALIST Visits 1 Precautions Precautions 18 month old C2 fracture per pt's son neck should not be messed with, fracture healed poorly PT-OP-B Current Condition Start: 08/09/20 07:28 Freq: Status: Active Protocol: Document 08/09/20 11:00 AMB (Rec: 08/09/20 11:21 AMB [id number]) Current Condition History of Current Condition Onset Date March 2020 Current Complaints R sided low back pain that radiates into the R leg History of Current Condition R sciatica staying the same since March, Walking and standing increase the pain. Pt lives alone, is in the hospital, and if/when he comes home he would have home health to help out. Son helps out but he does not live with them usually. Son lives in [place]. Single level home no stairs to enter, w/c accesible . Low back pain described as a deep ache that goes down the right leg and into the bottom of the foot. Has tried ice and sitting seems to help. Denies recent falls. Previously able to walk through [place] without pain, now pain is variable, some days can't walk to the mailbox , other days are ok. Guesstimate, 3x/month where pain is really bad to the point of lying in bed. Treatment Goals Patient/Caregiver Goals Be able to walk without pain Prior Functional Status Baseline Function- ADL's Modified Independent Baseline Function- Mobility Modified Independent Current Functional Impairments (Reported) Functional Limitations- ADL's Pt ambulates without AD but some days is very painful and others can manage short distances Personal Factors Other Personal Factors That May Effect Dementia, Colon CA about 7 Therapy/Recovery years ago, Breast CA about 2-3 years ago, [place] at age 55, Bilateral total shoulder replacements. History of fall with fracture of C2 that per pt and son did not heal well. PT-OP-C Subjective Start: 08/09/20 07:28 Freq: Status: Active Protocol: Document 08/24/20 09:03 SP (Rec: 08/24/20 12:06 SP [id number]) OP-PT Subjective Patient Comments Patient Comments Pt states didn't take Tylenol today and so 5/10 pain, even driving in the car but always has and lives with pain. PT-OP-F Manual Assessment Start: 08/09/20 07:28 Freq: Status: Active Protocol: Document 08/09/20 15:45 AMB (Rec: 08/09/20 16:01 AMB [email or web address]) Manual Assessments Soft Tissue Assessment Soft Tissue Mobility Assessment Pt reports tension throughout hamstring and calf but not significantly tender to palpation, stiffness throughout lumbar spine with PAs, tender more in piriformis /glutes, but pt has a hard time answering questions about pain at times. PT-OP-G Mobility & Gait Start: 08/09/20 07:28 Freq: Status: Active Protocol: Document 08/09/20 15:45 AMB (Rec: 08/09/20 16:01 AMB [email or web address]) OP Gait Assessment Comments Gait Comments Mildly antalgic gait without AD. PT-OP-J Posture/Palpation/Skin Start: 08/09/20 07:28 Freq: Status: Active Protocol: Document 08/09/20 15:45 AMB (Rec: 08/09/20 16:01 AMB [email or web address]) Posture Evaluation Comments Posture Comments In standing high R iliac crest and high right shoulder PT-OP-K Range of Motion Start: 08/09/20 07:28 Freq: Status: Active Protocol: Document 08/09/20 15:45 AMB (Rec: 08/09/20 16:01 AMB [email or web address]) Lumbar Spine Range of Motion Lumbar Spine Active Degrees Testing Position Standing Extension 10 Lateral Flexion Left 20 Lateral Flexion Right 10 Comments Full flexion ROM, stiffness with exxtension and right sidebending PT-OP-L Special Tests Start: 08/09/20 07:28 Freq: Status: Active Protocol: Document 08/09/20 15:45 AMB (Rec: 08/09/20 16:01 AMB [email or web address]) Special Tests Neural Special Tests- Lower Body Sciatic Nerve Tension Test Results + Comments Good hamstring flexibility but tension/pain increases with ankle dorsiflexion and adduction PT-OP-M Strength Start: 08/09/20 07:28 Freq: Status: Active Protocol: Document 08/09/20 15:45 AMB (Rec: 08/09/20 16:01 AMB [email or web address]) Hip Strength Hip Manual Muscle Testing Right Flexion (L2) 4- Good- Extension (S1) 4- Good- Left Flexion (L2) 4 Good Extension (S1) 4 Good Knee Strength Knee Manual Muscle Testing Right Flexion (S2) 4+ Good+ Extension (L3) 4+ Good+ Left Flexion (S2) 4+ Good+ Extension (L3) 4+ Good+ Ankle/Foot Strength Ankle and Foot Manual Muscle Testing Right Dorsiflexion (L4) 4 Good Plantarflexion (S1) 4 Good Left Dorsiflexion (L4) 4+ Good+ Plantarflexion (S1) 4+ Good+ PT-OP-Q Treatments Start: 08/09/20 07:28 Freq: Status: Active Protocol: Document 08/24/20 09:03 SP (Rec: 08/24/20 12:06 SP [id number]) Therapeutic Exercises Supine Exercises sciatic mobilization Supine Exercise Name sciatic glide w/ ankle pump Side right Reps/Minutes x10 Comments review HEP LTR Supine Exercise Name 10 x 2 Side bilateral Comments for HEP SKTC Supine Exercise Name SKTC Side bilateral Reps/Minutes 30 sec x 4 Comments for HEP piriformis stretch Supine Exercise Name piriformis stretch Side right Reps/Minutes 30 sec x 4 Comments for HEP Sidelying Exercises rhythmic initiation Sidelying Exercise Name rhythmic initiation (add, abd, flex, depress) knee bent Side right Resistance manual Reps/Minutes x10 Comments performed in supine today- painfree Standing Exercises self massage rac ball wall Standing Exercise Name glut, pirformis Side right Reps/Minutes 30 sec Comments good feedback tolerance I think this helps Therapeutic Activity Therapeutic Activity sleeping w/ pillows Name side sleeping Comments time spent education on use of pillows Manual Therapy Treatment Soft Tissue Mobilization STMs Body Location R pirformis, glut med Mobilization Type Cross-Friction,Instrument Assisted,Rolling,Sustained Pressure Intensity/Depth Moderate Body Position Sidelying Comments manual and instruction on self STMs using racquetball on wall self application Self-Care/Home Management Treatment Education Patient Education Home Exercise Program,Joint Protection,Pain Management Other Education education on self application of massage pirformis ball at wall. Extra time spent HEP review. Max cues for set up and performis and ability to apply w/ pain free. Activities Self-Care/Home Management Activities education pillow support for sidesleeping comfort, jt support alignment. PT-OP-T Assessment and Plan Start: 08/09/20 07:28 Freq: Status: Active Protocol: Document 08/24/20 09:03 SP (Rec: 08/24/20 12:06 SP [id number]) Physical Therapy Assessment Goals Three Impairment HEP Short Term Goal (STG) NANCY will be independent with a HEP for core stability and LE flexibility. STG Duration 4 weeks Two Impairment Pain Short Term Goal (STG) NANCY will report 4/10 back pain at worst with standing for 10 minutes. STG Duration 4 weeks [employer] Goal (LTG) NANCY will show improved sciatic n mobility by no increase in pain with SLR with ankle dorsiflexion and adduction. LTG Duration 8 weeks One Impairment Gait Short Term Goal (STG) NANCY will ambulate without AD for 5 minutes over smooth terrain without an increase in baseline pain. STG Duration 4 weeks [employer] Goal (LTG) NANCY will ambulate over uneven terrain for 10 minutes without an increase in baseline pain . LTG Duration 8 weeks Assessment Summary Assessment Pt required tx time to review HEP, doesn't feel confident in proper form/ set up,required handout in computer to view. good response to manual STMs so initiated rac ball wall for self applicaiton at home, with statement unsure if helped but when sat down near lockers little soreness and felt alot better coming to standing. Provided handouts. Time spent comfort side sleeping w/ pillow support to LS and hip joints and alignment , this feels really good. Physical Therapy Plan Frequency and Duration Frequency of Treatment 2x/Week Duration of Treatment 8 weeks Plan of Care Start Date 08/09/20 Plan of Care End Date 10/04/20 Therapeutic Interventions Therapeutic Interventions Balance Training,Gait Training ,Home Exercise Program,Joint Mobilizations,Manual Therapy, Neuromuscular Re-education, Self-Care/Home Management,Soft Tissue Mobilization, Therapeutic Activities, Therapeutic Exercises Modalities Cold Pack/Ice Massage,Electric Stimulation,Hot Packs Next Visit Focus/Plan Next Note Type Treatment Note Next Visit Plan Assess response to manual, self ball wall self application, side sleeping positioning and HEP review. Add core stabilization as tolerated.
--- NOTE | 2020-08-29 14:15 | PT.OTN ---
Current Diagnoses Sciatica, right side (08/29/20) Physical Therapy Treatment Note PT-OP-A Visit Information Start: 08/09/20 07:28 Freq: Status: Active Protocol: Document 08/29/20 13:45 AW (Rec: 08/29/20 13:46 AW [id number]) Out-Patient Physical Therapy Visit Information Visit Information Visit Type Treatment Note Visit Start Time 13:05 Visit Stop Time 13:45 Total Visit Minutes 40 Visit Number 4 Number of PHYSICIAN OBSTETRICIAN Visits 0 Precautions Precautions 18 month old C2 fracture per pt's son neck should not be messed with, fracture healed poorly PT-OP-B Current Condition Start: 08/09/20 07:28 Freq: Status: Active Protocol: Document 08/09/20 11:00 AMB (Rec: 08/09/20 11:21 AMB [id number]) Current Condition History of Current Condition Onset Date March 2020 Current Complaints R sided low back pain that radiates into the R leg History of Current Condition R sciatica staying the same since March, Walking and standing increase the pain. Pt lives alone, is in the hospital, and if/when he comes home he would have home health to help out. Son helps out but he does not live with them usually. Son lives in [place]. Single level home no stairs to enter, w/c accesible . Low back pain described as a deep ache that goes down the right leg and into the bottom of the foot. Has tried ice and sitting seems to help. Denies recent falls. Previously able to walk through [place] without pain, now pain is variable, some days can't walk to the mailbox , other days are ok. Guesstimate, 3x/month where pain is really bad to the point of lying in bed. Treatment Goals Patient/Caregiver Goals Be able to walk without pain Prior Functional Status Baseline Function- ADL's Modified Independent Baseline Function- Mobility Modified Independent Current Functional Impairments (Reported) Functional Limitations- ADL's Pt ambulates without AD but some days is very painful and others can manage short distances Personal Factors Other Personal Factors That May Effect Dementia, Colon CA about 7 Therapy/Recovery years ago, Breast CA about 2-3 years ago, [place] at age 55, Bilateral total shoulder replacements. History of fall with fracture of C2 that per pt and son did not heal well. PT-OP-C Subjective Start: 08/09/20 07:28 Freq: Status: Active Protocol: Document 08/29/20 13:45 AW (Rec: 08/29/20 14:11 AW [id number]) OP-PT Subjective Patient Comments Patient Comments Pt is tired today but attentive in therapy. PT-OP-F Manual Assessment Start: 08/09/20 07:28 Freq: Status: Active Protocol: Document 08/09/20 15:45 AMB (Rec: 08/09/20 16:01 AMB [email or web address]) Manual Assessments Soft Tissue Assessment Soft Tissue Mobility Assessment Pt reports tension throughout hamstring and calf but not significantly tender to palpation, stiffness throughout lumbar spine with PAs, tender more in piriformis /glutes, but pt has a hard time answering questions about pain at times. PT-OP-G Mobility & Gait Start: 08/09/20 07:28 Freq: Status: Active Protocol: Document 08/09/20 15:45 AMB (Rec: 08/09/20 16:01 AMB [email or web address]) OP Gait Assessment Comments Gait Comments Mildly antalgic gait without AD. PT-OP-J Posture/Palpation/Skin Start: 08/09/20 07:28 Freq: Status: Active Protocol: Document 08/09/20 15:45 AMB (Rec: 08/09/20 16:01 AMB [email or web address]) Posture Evaluation Comments Posture Comments In standing high R iliac crest and high right shoulder PT-OP-K Range of Motion Start: 08/09/20 07:28 Freq: Status: Active Protocol: Document 08/09/20 15:45 AMB (Rec: 08/09/20 16:01 AMB [email or web address]) Lumbar Spine Range of Motion Lumbar Spine Active Degrees Testing Position Standing Extension 10 Lateral Flexion Left 20 Lateral Flexion Right 10 Comments Full flexion ROM, stiffness with exxtension and right sidebending PT-OP-L Special Tests Start: 08/09/20 07:28 Freq: Status: Active Protocol: Document 08/09/20 15:45 AMB (Rec: 08/09/20 16:01 AMB [email or web address]) Special Tests Neural Special Tests- Lower Body Sciatic Nerve Tension Test Results + Comments Good hamstring flexibility but tension/pain increases with ankle dorsiflexion and adduction PT-OP-M Strength Start: 08/09/20 07:28 Freq: Status: Active Protocol: Document 08/09/20 15:45 AMB (Rec: 07/01/21 16:01 AMB [email or web address]) Hip Strength Hip Manual Muscle Testing Right Flexion (L2) 4- Good- Extension (S1) 4- Good- Left Flexion (L2) 4 Good Extension (S1) 4 Good Knee Strength Knee Manual Muscle Testing Right Flexion (S2) 4+ Good+ Extension (L3) 4+ Good+ Left Flexion (S2) 4+ Good+ Extension (L3) 4+ Good+ Ankle/Foot Strength Ankle and Foot Manual Muscle Testing Right Dorsiflexion (L4) 4 Good Plantarflexion (S1) 4 Good Left Dorsiflexion (L4) 4+ Good+ Plantarflexion (S1) 4+ Good+ PT-OP-Q Treatments Start: 08/09/20 07:28 Freq: Status: Active Protocol: Document 08/29/20 13:45 AW (Rec: 08/29/20 13:46 AW [id number]) Therapeutic Exercises Supine Exercises BKFO Supine Exercise Name BKFO Side bilateral Comments focus TA activation supine clam Supine Exercise Name supine clam Side bilateral Resistance level 1 Equipment Used TB Reps/Minutes x10 Comments HEP sciatic mobilization Supine Exercise Name sciatic glide w/ ankle pump Side right Reps/Minutes x10 Comments review HEP LTR Supine Exercise Name 10 x 2 Side bilateral Comments focus on TA recruitment SKTC Supine Exercise Name SKTC Side bilateral Reps/Minutes 30 sec x 4 Comments for HEP piriformis stretch Supine Exercise Name piriformis stretch Side right Reps/Minutes 30 sec x 4 Comments HEP review Sidelying Exercises clamshell Sidelying Exercise Name clamshell Side bilateral Reps/Minutes 10 x 2 Comments cues for pelvic neutral; Manual Therapy Treatment Soft Tissue Mobilization STMs Body Location R pirformis, glut med Mobilization Type Cross-Friction,Rolling, Sustained Pressure Intensity/Depth Moderate Body Position Sidelying Self-Care/Home Management Treatment Education Patient Education Home Exercise Program,Pain Management PT-OP-T Assessment and Plan Start: 08/09/20 07:28 Freq: Status: Active Protocol: Document 08/29/20 13:45 AW (Rec: 08/29/20 14:15 AW [id number]) Physical Therapy Assessment Goals Three Impairment HEP Short Term Goal (STG) NANCY will be independent with a HEP for core stability and LE flexibility. STG Duration 4 weeks Two Impairment Pain Short Term Goal (STG) NANCY will report 4/10 back pain at worst with standing for 10 minutes. STG Duration 4 weeks [facility] Goal (LTG) NANCY will show improved sciatic n mobility by no increase in pain with SLR with ankle dorsiflexion and adduction. LTG Duration 8 weeks One Impairment Gait Short Term Goal (STG) NANCY will ambulate without AD for 5 minutes over smooth terrain without an increase in baseline pain. STG Duration 4 weeks [employer] Goal (LTG) NANCY will ambulate over uneven terrain for 10 minutes without an increase in baseline pain . LTG Duration 8 weeks Assessment Summary Assessment Pt has poor carryover /memory for independent HEP performance but shows good effort in clinic. Reviewed HEP and initiated core stabilization work today which was added to HEP. Physical Therapy Plan Frequency and Duration Frequency of Treatment 2x/Week Duration of Treatment 8 weeks Plan of Care Start Date 08/09/20 Plan of Care End Date 10/04/20 Therapeutic Interventions Therapeutic Interventions Balance Training,Gait Training ,Home Exercise Program,Joint Mobilizations,Manual Therapy, Neuromuscular Re-education, Self-Care/Home Management,Soft Tissue Mobilization, Therapeutic Activities, Therapeutic Exercises Modalities Cold Pack/Ice Massage,Electric Stimulation,Hot Packs Next Visit Focus/Plan Next Visit Plan Assess response to core stab HEP, sleep positioning. Progress core stab and hip mob /strength as able
--- NOTE | 2020-08-31 15:15 | PT.OTN ---
Current Diagnoses Sciatica, right side (08/31/20) Physical Therapy Treatment Note PT-OP-A Visit Information Start: 08/09/20 07:28 Freq: Status: Active Protocol: Document 08/31/20 14:35 SP (Rec: 08/31/20 15:54 SP [id number]) Out-Patient Physical Therapy Visit Information Visit Information Visit Type Treatment Note Visit Start Time 14:35 Visit Stop Time 15:15 Total Visit Minutes 40 Visit Number 5 Number of APPLIANCES SAMPLE MAKER Visits 1 Precautions Precautions 18 month old C2 fracture per pt's son neck should not be messed with, fracture healed poorly PT-OP-B Current Condition Start: 08/09/20 07:28 Freq: Status: Active Protocol: Document 08/09/20 11:00 AMB (Rec: 08/09/20 11:21 AMB [id number]) Current Condition History of Current Condition Onset Date March 2020 Current Complaints R sided low back pain that radiates into the R leg History of Current Condition R sciatica staying the same since March, Walking and standing increase the pain. Pt lives alone, is in the hospital, and if/when he comes home he would have home health to help out. Son helps out but he does not live with them usually. Son lives in [place]. Single level home no stairs to enter, w/c accesible . Low back pain described as a deep ache that goes down the right leg and into the bottom of the foot. Has tried ice and sitting seems to help. Denies recent falls. Previously able to walk through [employer] without pain, now pain is variable, some days can't walk to the mailbox , other days are ok. Guesstimate, 3x/month where pain is really bad to the point of lying in bed. Treatment Goals Patient/Caregiver Goals Be able to walk without pain Prior Functional Status Baseline Function- ADL's Modified Independent Baseline Function- Mobility Modified Independent Current Functional Impairments (Reported) Functional Limitations- ADL's Pt ambulates without AD but some days is very painful and others can manage short distances Personal Factors Other Personal Factors That May Effect Dementia, Colon CA about 7 Therapy/Recovery years ago, Breast CA about 2-3 years ago, [place] at age 55, Bilateral total shoulder replacements. History of fall with fracture of C2 that per pt and son did not heal well. PT-OP-C Subjective Start: 08/09/20 07:28 Freq: Status: Active Protocol: Document 08/31/20 14:35 SP (Rec: 08/31/20 15:54 SP [id number]) OP-PT Subjective Patient Comments Patient Comments Pt reported always has constant back pain, has been going into R buttock with added tingling that radiates back of leg to knee and at times into R plantar surface of foot. Patient Reported Progress Same PT-OP-F Manual Assessment Start: 08/09/20 07:28 Freq: Status: Active Protocol: Document 08/09/20 15:45 AMB (Rec: 08/09/20 16:01 AMB [email or web address]) Manual Assessments Soft Tissue Assessment Soft Tissue Mobility Assessment Pt reports tension throughout hamstring and calf but not significantly tender to palpation, stiffness throughout lumbar spine with PAs, tender more in piriformis /glutes, but pt has a hard time answering questions about pain at times. PT-OP-G Mobility & Gait Start: 08/09/20 07:28 Freq: Status: Active Protocol: Document 08/09/20 15:45 AMB (Rec: 08/09/20 16:01 AMB [email or web address]) OP Gait Assessment Comments Gait Comments Mildly antalgic gait without AD. PT-OP-J Posture/Palpation/Skin Start: 08/09/20 07:28 Freq: Status: Active Protocol: Document 08/09/20 15:45 AMB (Rec: 08/09/20 16:01 AMB [email or web address]) Posture Evaluation Comments Posture Comments In standing high R iliac crest and high right shoulder PT-OP-K Range of Motion Start: 08/09/20 07:28 Freq: Status: Active Protocol: Document 08/09/20 15:45 AMB (Rec: 08/09/20 16:01 AMB [email or web address]) Lumbar Spine Range of Motion Lumbar Spine Active Degrees Testing Position Standing Extension 10 Lateral Flexion Left 20 Lateral Flexion Right 10 Comments Full flexion ROM, stiffness with exxtension and right sidebending PT-OP-L Special Tests Start: 08/09/20 07:28 Freq: Status: Active Protocol: Document 08/09/20 15:45 AMB (Rec: 08/09/20 16:01 AMB [email or web address]) Special Tests Neural Special Tests- Lower Body Sciatic Nerve Tension Test Results + Comments Good hamstring flexibility but tension/pain increases with ankle dorsiflexion and adduction PT-OP-M Strength Start: 08/09/20 07:28 Freq: Status: Active Protocol: Document 08/09/20 15:45 AMB (Rec: 08/09/20 16:01 AMB [email or web address]) Hip Strength Hip Manual Muscle Testing Right Flexion (L2) 4- Good- Extension (S1) 4- Good- Left Flexion (L2) 4 Good Extension (S1) 4 Good Knee Strength Knee Manual Muscle Testing Right Flexion (S2) 4+ Good+ Extension (L3) 4+ Good+ Left Flexion (S2) 4+ Good+ Extension (L3) 4+ Good+ Ankle/Foot Strength Ankle and Foot Manual Muscle Testing Right Dorsiflexion (L4) 4 Good Plantarflexion (S1) 4 Good Left Dorsiflexion (L4) 4+ Good+ Plantarflexion (S1) 4+ Good+ PT-OP-Q Treatments Start: 08/09/20 07:28 Freq: Status: Active Protocol: Document 08/31/20 14:35 SP (Rec: 08/31/20 15:54 SP [id number]) Therapeutic Exercises Supine Exercises core march Supine Exercise Name alternating BLE Reps/Minutes 5 reps x2 Comments painfree- added to HEP BKFO Supine Exercise Name sKFO Side bilateral Reps/Minutes x10 Comments focus TA activation supine clam Supine Exercise Name supine clam Side bilateral Resistance level 1 Equipment Used TB Reps/Minutes x10 Comments - caused tingling down leg so instructed to stop for now sciatic mobilization Supine Exercise Name sciatic glide w/ ankle pump Side right Reps/Minutes x10 Comments reviewed HEP- good no pain and rids the tingling every performance LTR Supine Exercise Name 10 x 2 Side bilateral Comments focus on TA recruitment piriformis stretch Supine Exercise Name piriformis stretch Side right Reps/Minutes 30 sec x 4 Comments HEP review Sitting Exercises piriformis stretch Sitting Exercise Name added to HEP Side right Reps/Minutes 20 x2 Comments good feedback- painfree and no tingling Manual Therapy Treatment Soft Tissue Mobilization STMs Body Location R pirformis, glut med Mobilization Type Cross-Friction,Rolling, Sustained Pressure Intensity/Depth Moderate Body Position Sidelying Comments manual, reviewed self usign ball on wall- did increase tingling to instructed to discontinue performance. PT-OP-T Assessment and Plan Start: 08/09/20 07:28 Freq: Status: Active Protocol: Document 08/31/20 14:35 SP (Rec: 08/31/20 15:54 SP [id number]) Physical Therapy Assessment Goals Three Impairment HEP Short Term Goal (STG) NANCY will be independent with a HEP for core stability and LE flexibility. STG Duration 4 weeks Two Impairment Pain Short Term Goal (STG) NANCY will report 4/10 back pain at worst with standing for 10 minutes. STG Duration 4 weeks Rock Worker Goal (LTG) NANCY will show improved sciatic n mobility by no increase in pain with SLR with ankle dorsiflexion and adduction. LTG Duration 8 weeks One Impairment Gait Short Term Goal (STG) NANCY will ambulate without AD for 5 minutes over smooth terrain without an increase in baseline pain. STG Duration 4 weeks Rock Worker Goal (LTG) NANCY will ambulate over uneven terrain for 10 minutes without an increase in baseline pain . LTG Duration 8 weeks Assessment Summary Assessment Pt responded well to sciatic nerve glide supine and initiated april pain free and no tingling into RLE. Pt continues to experience tingling into RLE especially instanding. APPLIANCES SAMPLE MAKER suggested contacting physician to perform further assessment and if xray required. Physical Therapy Plan Frequency and Duration Frequency of Treatment 2x/Week Duration of Treatment 8 weeks Plan of Care Start Date 08/09/20 Plan of Care End Date 10/04/20 Therapeutic Interventions Therapeutic Interventions Balance Training,Gait Training ,Home Exercise Program,Joint Mobilizations,Manual Therapy, Neuromuscular Re-education, Self-Care/Home Management,Soft Tissue Mobilization, Therapeutic Activities, Therapeutic Exercises Modalities Cold Pack/Ice Massage,Electric Stimulation,Hot Packs Next Visit Focus/Plan Next Visit Plan Assess response to sciatic nerve glide, april initiated last tx. If contacted Dr about tingling into R leg more constant. POC: Progress core stab and hip mob/strength as able
--- NOTE | 2020-09-04 17:02 | PT.OTN ---
Current Diagnoses Sciatica, right side (09/04/20) Physical Therapy Treatment Note PT-OP-A Visit Information Start: 08/09/20 07:28 Freq: Status: Active Protocol: Document 09/04/20 14:30 AW (Rec: 09/04/20 14:31 AW [id number]) Out-Patient Physical Therapy Visit Information Visit Information Visit Type Treatment Note Visit Start Time 13:45 Visit Stop Time 14:26 Total Visit Minutes 41 Visit Number 6 Number of MARBLE FINISHER Visits 0 Precautions Precautions 18 month old C2 fracture per pt's son neck should not be messed with, fracture healed poorly PT-OP-B Current Condition Start: 08/09/20 07:28 Freq: Status: Active Protocol: Document 08/09/20 11:00 AMB (Rec: 08/09/20 11:21 AMB [id number]) Current Condition History of Current Condition Onset Date March 2020 Current Complaints R sided low back pain that radiates into the R leg History of Current Condition R sciatica staying the same since March, Walking and standing increase the pain. Pt lives alone, is in the hospital, and if/when he comes home he would have home health to help out. Son helps out but he does not live with them usually. Son lives in [place]. Single level home no stairs to enter, w/c accesible . Low back pain described as a deep ache that goes down the right leg and into the bottom of the foot. Has tried ice and sitting seems to help. Denies recent falls. Previously able to walk through [employer] without pain, now pain is variable, some days can't walk to the mailbox , other days are ok. Guesstimate, 3x/month where pain is really bad to the point of lying in bed. Treatment Goals Patient/Caregiver Goals Be able to walk without pain Prior Functional Status Baseline Function- ADL's Modified Independent Baseline Function- Mobility Modified Independent Current Functional Impairments (Reported) Functional Limitations- ADL's Pt ambulates without AD but some days is very painful and others can manage short distances Personal Factors Other Personal Factors That May Effect Dementia, Colon CA about 7 Therapy/Recovery years ago, Breast CA about 2-3 years ago, [place] at age 55, Bilateral total shoulder replacements. History of fall with fracture of C2 that per pt and son did not heal well. PT-OP-C Subjective Start: 08/09/20 07:28 Freq: Status: Active Protocol: Document 09/04/20 14:30 AW (Rec: 09/04/20 14:31 AW [id number]) OP-PT Subjective Patient Comments Patient Comments Pt admits she struggles with HEP and needs reinforcement for independent performance but does not think her leg pain is improving. Patient Reported Progress Same PT-OP-F Manual Assessment Start: 08/09/20 07:28 Freq: Status: Active Protocol: Document 08/09/20 15:45 AMB (Rec: 08/09/20 16:01 AMB [email or web address]) Manual Assessments Soft Tissue Assessment Soft Tissue Mobility Assessment Pt reports tension throughout hamstring and calf but not significantly tender to palpation, stiffness throughout lumbar spine with PAs, tender more in piriformis /glutes, but pt has a hard time answering questions about pain at times. PT-OP-G Mobility & Gait Start: 08/09/20 07:28 Freq: Status: Active Protocol: Document 08/09/20 15:45 AMB (Rec: 08/09/20 16:01 AMB [email or web address]) OP Gait Assessment Comments Gait Comments Mildly antalgic gait without AD. PT-OP-J Posture/Palpation/Skin Start: 08/09/20 07:28 Freq: Status: Active Protocol: Document 08/09/20 15:45 AMB (Rec: 08/09/20 16:01 AMB [email or web address]) Posture Evaluation Comments Posture Comments In standing high R iliac crest and high right shoulder PT-OP-K Range of Motion Start: 08/09/20 07:28 Freq: Status: Active Protocol: Document 08/09/20 15:45 AMB (Rec: 08/09/20 16:01 AMB [email or web address]) Lumbar Spine Range of Motion Lumbar Spine Active Degrees Testing Position Standing Extension 10 Lateral Flexion Left 20 Lateral Flexion Right 10 Comments Full flexion ROM, stiffness with exxtension and right sidebending PT-OP-L Special Tests Start: 08/09/20 07:28 Freq: Status: Active Protocol: Document 08/09/20 15:45 AMB (Rec: 08/09/20 16:01 AMB [email or web address]) Special Tests Neural Special Tests- Lower Body Sciatic Nerve Tension Test Results + Comments Good hamstring flexibility but tension/pain increases with ankle dorsiflexion and adduction PT-OP-M Strength Start: 08/09/20 07:28 Freq: Status: Active Protocol: Document 08/09/20 15:45 AMB (Rec: 08/09/20 16:01 AMB [email or web address]) Hip Strength Hip Manual Muscle Testing Right Flexion (L2) 4- Good- Extension (S1) 4- Good- Left Flexion (L2) 4 Good Extension (S1) 4 Good Knee Strength Knee Manual Muscle Testing Right Flexion (S2) 4+ Good+ Extension (L3) 4+ Good+ Left Flexion (S2) 4+ Good+ Extension (L3) 4+ Good+ Ankle/Foot Strength Ankle and Foot Manual Muscle Testing Right Dorsiflexion (L4) 4 Good Plantarflexion (S1) 4 Good Left Dorsiflexion (L4) 4+ Good+ Plantarflexion (S1) 4+ Good+ PT-OP-Q Treatments Start: 08/09/20 07:28 Freq: Status: Active Protocol: Document 09/04/20 14:30 AW (Rec: 09/04/20 14:31 AW [id number]) Therapeutic Exercises Supine Exercises BKFO Supine Exercise Name sKFO Side bilateral Equipment Used belt under low back for tactile feedback Reps/Minutes x10 Comments focus TA activation sciatic mobilization Supine Exercise Name sciatic glide w/ ankle pump Side right Reps/Minutes x10 Comments reviewed HEP- good no pain and rids the tingling every performance SKTC Supine Exercise Name SKTC Side bilateral Reps/Minutes 30 sec x 4 Comments HEP review piriformis stretch Supine Exercise Name piriformis stretch Side right Reps/Minutes 30 sec x 4 Comments HEP review Sidelying Exercises open book Sidelying Exercise Name open book Side right Reps/Minutes x10 Comments with fixed hips; with right leg fwd Manual Therapy Treatment Soft Tissue Mobilization STMs Body Location R pirformis, ERs Mobilization Type Cross-Friction,Rolling, Sustained Pressure Intensity/Depth Moderate Body Position Sidelying Joint Mobilizations R lumbar facets Joint R lumbar facets Grade II Body Position Sidelying Reps/Duration 5 min Comments gapping to assess symptom response/irritability Manual Traction Lumbar Details lumbar Body Position Supine Reps/Duration 30 sec x 3 Comments slightly relieving PT-OP-T Assessment and Plan Start: 08/09/20 07:28 Freq: Status: Active Protocol: Document 09/04/20 14:30 AW (Rec: 09/04/20 17:02 AW [email or web address]) Physical Therapy Assessment Goals Three Impairment HEP Short Term Goal (STG) NANCY will be independent with a HEP for core stability and LE flexibility. STG Duration 4 weeks Two Impairment Pain Short Term Goal (STG) NANCY will report 4/10 back pain at worst with standing for 10 minutes. STG Duration 4 weeks Dress Cap Maker Goal (LTG) NANCY will show improved sciatic n mobility by no increase in pain with SLR with ankle dorsiflexion and adduction. LTG Duration 8 weeks One Impairment Gait Short Term Goal (STG) NANCY will ambulate without AD for 5 minutes over smooth terrain without an increase in baseline pain. STG Duration 4 weeks Fpc Goal (LTG) NANCY will ambulate over uneven terrain for 10 minutes without an increase in baseline pain . LTG Duration 8 weeks Assessment Summary Assessment Pt reports continued pain in her right leg but is unclear on HEP, needing more direction . Provided handouts with pictures for sciatic nerve glide and piriformis stretch. Pt has positive response to manual lumbar traction and sidelying facet gapping. She left feeling better than when she arrived. Pt advised to contact her PCP for further assessment if not feeling better in the next few weeks. Physical Therapy Plan Frequency and Duration Frequency of Treatment 2x/Week Duration of Treatment 8 weeks Plan of Care Start Date 08/09/20 Plan of Care End Date 10/04/20 Therapeutic Interventions Therapeutic Interventions Balance Training,Gait Training ,Home Exercise Program,Joint Mobilizations,Manual Therapy, Neuromuscular Re-education, Self-Care/Home Management,Soft Tissue Mobilization, Therapeutic Activities, Therapeutic Exercises Modalities Cold Pack/Ice Massage,Electric Stimulation,Hot Packs Next Visit Focus/Plan Next Visit Plan Assess response to sciatic nerve glide, core april initiated last tx. If contacted Dr about tingling into R leg more constant. POC: Progress core stab and hip mob/strength as able
--- NOTE | 2020-09-11 14:30 | PT.OTN ---
Current Diagnoses Sciatica, right side (09/11/20) Physical Therapy Treatment Note PT-OP-A Visit Information Start: 08/09/20 07:28 Freq: Status: Active Protocol: Document 09/11/20 13:48 SP (Rec: 09/11/20 14:32 SP [id number]) Out-Patient Physical Therapy Visit Information Visit Information Visit Type Treatment Note Visit Start Time 13:48 Visit Stop Time 14:30 Total Visit Minutes 42 Visit Number 7 Number of DISTRIBUTION ANALYST Visits 1 Precautions Precautions 18 month old C2 fracture per pt's son neck should not be messed with, fracture healed poorly PT-OP-B Current Condition Start: 08/09/20 07:28 Freq: Status: Active Protocol: Document 08/09/20 11:00 AMB (Rec: 08/09/20 11:21 AMB [id number]) Current Condition History of Current Condition Onset Date March 2020 Current Complaints R sided low back pain that radiates into the R leg History of Current Condition R sciatica staying the same since March, Walking and standing increase the pain. Pt lives alone, is in the hospital, and if/when he comes home he would have home health to help out. Son helps out but he does not live with them usually. Son lives in [place]. Single level home no stairs to enter, w/c accesible . Low back pain described as a deep ache that goes down the right leg and into the bottom of the foot. Has tried ice and sitting seems to help. Denies recent falls. Previously able to walk through [employer] without pain, now pain is variable, some days can't walk to the mailbox , other days are ok. Guesstimate, 3x/month where pain is really bad to the point of lying in bed. Treatment Goals Patient/Caregiver Goals Be able to walk without pain Prior Functional Status Baseline Function- ADL's Modified Independent Baseline Function- Mobility Modified Independent Current Functional Impairments (Reported) Functional Limitations- ADL's Pt ambulates without AD but some days is very painful and others can manage short distances Personal Factors Other Personal Factors That May Effect Dementia, Colon CA about 7 Therapy/Recovery years ago, Breast CA about 2-3 years ago, [place] at age 55, Bilateral total shoulder replacements. History of fall with fracture of C2 that per pt and son did not heal well. PT-OP-C Subjective Start: 08/09/20 07:28 Freq: Status: Active Protocol: Document 09/11/20 13:48 SP (Rec: 09/11/20 14:32 SP [id number]) OP-PT Subjective Patient Comments Patient Comments Pt stated I am feeling about the same, still hurt over R posterolateral hip, what should I do, will it ever go away. It seems the more try to do the worse feel but over all little better. Patient Reported Progress Same PT-OP-F Manual Assessment Start: 08/09/20 07:28 Freq: Status: Active Protocol: Document 08/09/20 15:45 AMB (Rec: 08/09/20 16:01 AMB [email or web address]) Manual Assessments Soft Tissue Assessment Soft Tissue Mobility Assessment Pt reports tension throughout hamstring and calf but not significantly tender to palpation, stiffness throughout lumbar spine with PAs, tender more in piriformis /glutes, but pt has a hard time answering questions about pain at times. PT-OP-G Mobility & Gait Start: 08/09/20 07:28 Freq: Status: Active Protocol: Document 08/09/20 15:45 AMB (Rec: 08/09/20 16:01 AMB [email or web address]) OP Gait Assessment Comments Gait Comments Mildly antalgic gait without AD. PT-OP-J Posture/Palpation/Skin Start: 08/09/20 07:28 Freq: Status: Active Protocol: Document 08/09/20 15:45 AMB (Rec: 08/09/20 16:01 AMB [email or web address]) Posture Evaluation Comments Posture Comments In standing high R iliac crest and high right shoulder PT-OP-K Range of Motion Start: 08/09/20 07:28 Freq: Status: Active Protocol: Document 08/09/20 15:45 AMB (Rec: 08/09/20 16:01 AMB [email or web address]) Lumbar Spine Range of Motion Lumbar Spine Active Degrees Testing Position Standing Extension 10 Lateral Flexion Left 20 Lateral Flexion Right 10 Comments Full flexion ROM, stiffness with exxtension and right sidebending PT-OP-L Special Tests Start: 08/09/20 07:28 Freq: Status: Active Protocol: Document 08/09/20 15:45 AMB (Rec: 08/09/20 16:01 AMB [email or web address]) Special Tests Neural Special Tests- Lower Body Sciatic Nerve Tension Test Results + Comments Good hamstring flexibility but tension/pain increases with ankle dorsiflexion and adduction PT-OP-M Strength Start: 08/09/20 07:28 Freq: Status: Active Protocol: Document 08/09/20 15:45 AMB (Rec: 08/09/20 16:01 AMB [email or web address]) Hip Strength Hip Manual Muscle Testing Right Flexion (L2) 4- Good- Extension (S1) 4- Good- Left Flexion (L2) 4 Good Extension (S1) 4 Good Knee Strength Knee Manual Muscle Testing Right Flexion (S2) 4+ Good+ Extension (L3) 4+ Good+ Left Flexion (S2) 4+ Good+ Extension (L3) 4+ Good+ Ankle/Foot Strength Ankle and Foot Manual Muscle Testing Right Dorsiflexion (L4) 4 Good Plantarflexion (S1) 4 Good Left Dorsiflexion (L4) 4+ Good+ Plantarflexion (S1) 4+ Good+ PT-OP-Q Treatments Start: 08/09/20 07:28 Freq: Status: Active Protocol: Document 09/11/20 13:48 SP (Rec: 09/11/20 14:32 SP [id number]) Therapeutic Exercises Supine Exercises core march Supine Exercise Name alternating BLE Reps/Minutes 5 reps x2 Comments painfree- reviewed HEP- cued slow pacing control BKFO Supine Exercise Name sKFO Side bilateral Equipment Used belt under low back for tactile feedback Reps/Minutes x10 Comments cued ab engagement, PPT with improved fac. sciatic mobilization Supine Exercise Name sciatic glide w/ ankle pump Side right Reps/Minutes x10 Comments reviewed HEP- good no pain and rids the tingling every performance SKTC Supine Exercise Name SKTC Side bilateral Reps/Minutes 30 sec x 4 Comments HEP review piriformis stretch Supine Exercise Name piriformis stretch w/ ER pressure-feels good Side right Reps/Minutes 30 sec x 4 Comments HEP review Sitting Exercises HS stretch Sitting Exercise Name Added to HEP Side right Reps/Minutes 30 x2 Comments good feedback stretch piriformis stretch Sitting Exercise Name Reviewed HEP Side right Reps/Minutes 20 x2 Comments good feedback- painfree and no tingling Standing Exercises self massage rac ball wall Standing Exercise Name glut, pirformis Side right Reps/Minutes 30 sec Comments good feedback tolerance I think this helps Manual Therapy Treatment Soft Tissue Mobilization STMs Body Location R pirformis, ERs Mobilization Type Cross-Friction,Rolling, Sustained Pressure Intensity/Depth Moderate Body Position Sidelying Comments good feedback response, decreased tension PT-OP-T Assessment and Plan Start: 08/09/20 07:28 Freq: Status: Active Protocol: Document 09/11/20 13:48 SP (Rec: 09/11/20 14:32 SP [id number]) Physical Therapy Assessment Goals Three Impairment HEP Short Term Goal (STG) NANCY will be independent with a HEP for core stability and LE flexibility. STG Duration 4 weeks Two Impairment Pain Short Term Goal (STG) NANCY will report 4/10 back pain at worst with standing for 10 minutes. STG Duration 4 weeks Curtain Inspector Goal (LTG) NANCY will show improved sciatic n mobility by no increase in pain with SLR with ankle dorsiflexion and adduction. LTG Duration 8 weeks One Impairment Gait Short Term Goal (STG) NANCY will ambulate without AD for 5 minutes over smooth terrain without an increase in baseline pain. STG Duration 4 weeks Curtain Inspector Goal (LTG) NANCY will ambulate over uneven terrain for 10 minutes without an increase in baseline pain . LTG Duration 8 weeks Assessment Summary Assessment Pt responded well to HEP, requires Mod- Max cuing for recall and proper form with slow pacing control stretching and core fac HEP. Pt reported decreased pain end of tx. Pt states still getting the pain into leg constant though, recommended to call physician for if suggests further assessment. Physical Therapy Plan Frequency and Duration Frequency of Treatment 2x/Week Duration of Treatment 8 weeks Plan of Care Start Date 08/09/20 Plan of Care End Date 10/04/20 Therapeutic Interventions Therapeutic Interventions Balance Training,Gait Training ,Home Exercise Program,Joint Mobilizations,Manual Therapy, Neuromuscular Re-education, Self-Care/Home Management,Soft Tissue Mobilization, Therapeutic Activities, Therapeutic Exercises Modalities Cold Pack/Ice Massage,Electric Stimulation,Hot Packs Next Visit Focus/Plan Next Visit Plan Assess response to manual to R pirformis, HEP stretching, core nilton last tx and self STMs ball on wall over pirformis. Instructed to call Dr about tingling into R leg more constant and no significant change. POC: Progress core stab and hip mob/strength as able
--- NOTE | 2020-09-13 12:33 | PT.OTN ---
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 Pt lives alone, is in the hospital, and if/when he comes home he would have home health to help out. Son helps out but he does not live with them usually. Son lives in [place]. Single level home no stairs to enter, w/c accesible . Low back pain described as a deep ache that goes down the right leg and into the bottom of the foot. Has tried ice and sitting seems to help. Denies recent falls. Previously able to walk through [employer] without pain, now pain is variable, some days can't walk to the mailbox , other days are ok. Guesstimate, 3x/month where pain is really bad to the point of lying in bed. Treatment Goals Patient/Caregiver Goals Be able to walk without pain Prior Functional Status Baseline Function- ADL's Modified Independent Baseline Function- Mobility Modified Independent Current Functional Impairments (Reported) Functional Limitations- ADL's Pt ambulates without AD but some days is very painful and others can manage short distances Personal Factors Other Personal Factors That May Effect Dementia, Colon CA about 7 Therapy/Recovery years ago, Breast CA about 2-3 years ago, [place] at age 55, Bilateral total shoulder replacements. History of fall with fracture of C2 that per pt and son did not heal well. PT-OP-C Subjective Start: 08/09/20 07:28 Freq: Status: Active Protocol: Document 09/13/20 11:13 AW (Rec: 09/13/20 11:15 AW [id number]) OP-PT Subjective Patient Comments Patient Comments I just don't know if it'll ever get better. Patient Reported Progress Same PT-OP-F Manual Assessment Start: 08/09/20 07:28 Freq: Status: Active Protocol: Document 08/09/20 15:45 AMB (Rec: 08/09/20 16:01 AMB [email or web address]) Manual Assessments Soft Tissue Assessment Soft Tissue Mobility Assessment Pt reports tension throughout hamstring and calf but not significantly tender to palpation, stiffness throughout lumbar spine with PAs, tender more in piriformis /glutes, but pt has a hard time answering questions about pain at times. PT-OP-G Mobility & Gait Start: 08/09/20 07:28 Freq: Status: Active Protocol: Document 08/09/20 15:45 AMB (Rec: 08/09/20 16:01 AMB [email or web address]) OP Gait Assessment Comments Gait Comments Mildly antalgic gait without AD. PT-OP-J Posture/Palpation/Skin Start: 08/09/20 07:28 Freq: Status: Active Protocol: Document 08/09/20 15:45 AMB (Rec: 08/09/20 16:01 AMB [email or web address]) Posture Evaluation Comments Posture Comments In standing high R iliac crest and high right shoulder PT-OP-K Range of Motion Start: 08/09/20 07:28 Freq: Status: Active Protocol: Document 08/09/20 15:45 AMB (Rec: 08/09/20 16:01 AMB [email or web address]) Lumbar Spine Range of Motion Lumbar Spine Active Degrees Testing Position Standing Extension 10 Lateral Flexion Left 20 Lateral Flexion Right 10 Comments Full flexion ROM, stiffness with exxtension and right sidebending PT-OP-L Special Tests Start: 08/09/20 07:28 Freq: Status: Active Protocol: Document 08/09/20 15:45 AMB (Rec: 08/09/20 16:01 AMB [email or web address]) Special Tests Neural Special Tests- Lower Body Sciatic Nerve Tension Test Results + Comments Good hamstring flexibility but tension/pain increases with ankle dorsiflexion and adduction PT-OP-M Strength Start: 08/09/20 07:28 Freq: Status: Active Protocol: Document 08/09/20 15:45 AMB (Rec: 08/09/20 16:01 AMB [email or web address]) Hip Strength Hip Manual Muscle Testing Right Flexion (L2) 4- Good- Extension (S1) 4- Good- Left Flexion (L2) 4 Good Extension (S1) 4 Good Knee Strength Knee Manual Muscle Testing Right Flexion (S2) 4+ Good+ Extension (L3) 4+ Good+ Left Flexion (S2) 4+ Good+ Extension (L3) 4+ Good+ Ankle/Foot Strength Ankle and Foot Manual Muscle Testing Right Dorsiflexion (L4) 4 Good Plantarflexion (S1) 4 Good Left Dorsiflexion (L4) 4+ Good+ Plantarflexion (S1) 4+ Good+ PT-OP-Q Treatments Start: 08/09/20 07:28 Freq: Status: Active Protocol: Document 09/13/20 11:13 AW (Rec: 09/13/20 11:15 AW [id number]) Therapeutic Exercises Supine Exercises SLR Supine Exercise Name SLR Side bilateral Reps/Minutes 12 x 2 Comments altnerating; no pain sciatic mobilization Supine Exercise Name sciatic glide w/ ankle pump Side right Reps/Minutes x10 Comments reviewed HEP- good no pain and rids the tingling every performance piriformis stretch Supine Exercise Name piriformis stretch Side right Reps/Minutes 30 sec x 4 Comments independent performance and manual assist Sitting Exercises HS stretch Sitting Exercise Name HEP review Side right Reps/Minutes 30 x2 Comments requires max cues for set up Standing Exercises hip flexion/march Standing Exercise Name hip flexion/march Side bilateral Resistance AROM Equipment Used // for support Reps/Minutes 10 x 2 Comments no pain gastroc stretch Side bilateral Equipment Used //, MARISELA Reps/Minutes 30SH x 3 Comments good stretch in tall standing Other Exercises sit to stand Other Exercise Name sit to stand - no UE assist Reps/Minutes 5 x 3 Comments cued weight shift/acceptance Manual Therapy Treatment Soft Tissue Mobilization STMs Body Location R pirformis, ERs Mobilization Type Cross-Friction,Rolling, Sustained Pressure Intensity/Depth Moderate Body Position Sidelying Comments good feedback response, decreased tension Manual Traction Lumbar Details lumbar Body Position Supine Reps/Duration 30 sec x 3 Comments slightly relieving PT-OP-T Assessment and Plan Start: 08/09/20 07:28 Freq: Status: Active Protocol: Document 09/13/20 11:13 AW (Rec: 09/13/20 12:33 AW [email or web address]) Physical Therapy Assessment Goals Three Impairment HEP Short Term Goal (STG) NANCY will be independent with a HEP for core stability and LE flexibility. STG Duration 4 weeks Two Impairment Pain Short Term Goal (STG) NANCY will report 4/10 back pain at worst with standing for 10 minutes. STG Duration 4 weeks Half-Way Goal (LTG) NANCY will show improved sciatic n mobility by no increase in pain with SLR with ankle dorsiflexion and adduction. LTG Duration 8 weeks One Impairment Gait Short Term Goal (STG) NANCY will ambulate without AD for 5 minutes over smooth terrain without an increase in baseline pain. STG Duration 4 weeks Half-Way Goal (LTG) NANCY will ambulate over uneven terrain for 10 minutes without an increase in baseline pain . LTG Duration 8 weeks Assessment Summary Assessment Pt continues to require mod assist for HEP performance which is likely hindering her progress. She is still bothered by RLE pain. She has an appointment with her doctor within the next week to discuss further. Physical Therapy Plan Frequency and Duration Frequency of Treatment 2x/Week Duration of Treatment 8 weeks Plan of Care Start Date 08/09/20 Plan of Care End Date 10/04/20 Therapeutic Interventions Therapeutic Interventions Balance Training,Gait Training ,Home Exercise Program,Joint Mobilizations,Manual Therapy, Neuromuscular Re-education, Self-Care/Home Management,Soft Tissue Mobilization, Therapeutic Activities, Therapeutic Exercises Modalities Cold Pack/Ice Massage,Electric Stimulation,Hot Packs Next Visit Focus/Plan Next Visit Plan Assess response to manual to R pirformis, HEP stretching, core nilton last tx and self STMs ball on wall over pirformis. Instructed to call Dr about tingling into R leg more constant and no significant change. POC: Progress core stab and hip mob/strength as able
--- NOTE | 2020-09-18 16:49 | PT.OPDS ---
Current Diagnoses Sciatica, right side (09/13/20) Visit Care Team Role Provider Type Gio Viera MD Attending Provider Physician Primary Care Provider Referring Provider Specialty: Internal Medicine Address: [address] [place] [address], [facility] Email: [email or web address] Visit Number Visit Number 8 Discharge Summary PT-OP-B Current Condition Start: 08/09/20 07:28 Freq: Status: Active Protocol: Document 08/09/20 11:00 AMB (Rec: 08/09/20 11:21 AMB [id number]) Current Condition History of Current Condition Onset Date March 2020 Current Complaints R sided low back pain that radiates into the R leg History of Current Condition R sciatica staying the same since March, Walking and standing increase the pain. Pt lives alone, is in the hospital, and if/when he comes home he would have home health to help out. Son helps out but he does not live with them usually. Son lives in [place]. Single level home no stairs to enter, w/c accesible . Low back pain described as a deep ache that goes down the right leg and into the bottom of the foot. Has tried ice and sitting seems to help. Denies recent falls. Previously able to walk through [employer] without pain, now pain is variable, some days can't walk to the mailbox , other days are ok. Guesstimate, 3x/month where pain is really bad to the point of lying in bed. Treatment Goals Patient/Caregiver Goals Be able to walk without pain Prior Functional Status Baseline Function- ADL's Modified Independent Baseline Function- Mobility Modified Independent Current Functional Impairments (Reported) Functional Limitations- ADL's Pt ambulates without AD but some days is very painful and others can manage short distances Personal Factors Other Personal Factors That May Effect Dementia, Colon CA about 7 Therapy/Recovery years ago, Breast CA about 2-3 years ago, [place] at age 55, Bilateral total shoulder replacements. History of fall with fracture of C2 that per pt and son did not heal well. PT-OP-C Subjective Start: 08/09/20 07:28 Freq: Status: Active Protocol: Document 09/13/20 11:13 AW (Rec: 09/13/20 11:15 AW [id number]) OP-PT Subjective Patient Comments Patient Comments I just don't know if it'll ever get better. Patient Reported Progress Same PT-OP-F Manual Assessment Start: 08/09/20 07:28 Freq: Status: Active Protocol: Document 08/09/20 15:45 AMB (Rec: 08/09/20 16:01 AMB [email or web address]) Manual Assessments Soft Tissue Assessment Soft Tissue Mobility Assessment Pt reports tension throughout hamstring and calf but not significantly tender to palpation, stiffness throughout lumbar spine with PAs, tender more in piriformis /glutes, but pt has a hard time answering questions about pain at times. PT-OP-G Mobility & Gait Start: 08/09/20 07:28 Freq: Status: Active Protocol: Document 08/09/20 15:45 AMB (Rec: 08/09/20 16:01 AMB [email or web address]) OP Gait Assessment Comments Gait Comments Mildly antalgic gait without AD. PT-OP-J Posture/Palpation/Skin Start: 08/09/20 07:28 Freq: Status: Active Protocol: Document 08/09/20 15:45 AMB (Rec: 08/09/20 16:01 AMB [email or web address]) Posture Evaluation Comments Posture Comments In standing high R iliac crest and high right shoulder PT-OP-K Range of Motion Start: 08/09/20 07:28 Freq: Status: Active Protocol: Document 08/09/20 15:45 AMB (Rec: 08/09/20 16:01 AMB [email or web address]) Lumbar Spine Range of Motion Lumbar Spine Active Degrees Testing Position Standing Extension 10 Lateral Flexion Left 20 Lateral Flexion Right 10 Comments Full flexion ROM, stiffness with exxtension and right sidebending PT-OP-L Special Tests Start: 08/09/20 07:28 Freq: Status: Active Protocol: Document 08/09/20 15:45 AMB (Rec: 08/09/20 16:01 AMB [email or web address]) Special Tests Neural Special Tests- Lower Body Sciatic Nerve Tension Test Results + Comments Good hamstring flexibility but tension/pain increases with ankle dorsiflexion and adduction PT-OP-M Strength Start: 08/09/20 07:28 Freq: Status: Active Protocol: Document 08/09/20 15:45 AMB (Rec: 08/09/20 16:01 AMB [email or web address]) Hip Strength Hip Manual Muscle Testing Right Flexion (L2) 4- Good- Extension (S1) 4- Good- Left Flexion (L2) 4 Good Extension (S1) 4 Good Knee Strength Knee Manual Muscle Testing Right Flexion (S2) 4+ Good+ Extension (L3) 4+ Good+ Left Flexion (S2) 4+ Good+ Extension (L3) 4+ Good+ Ankle/Foot Strength Ankle and Foot Manual Muscle Testing Right Dorsiflexion (L4) 4 Good Plantarflexion (S1) 4 Good Left Dorsiflexion (L4) 4+ Good+ Plantarflexion (S1) 4+ Good+ PT-OP-T Assessment and Plan Start: 08/09/20 07:28 Freq: Status: Active Protocol: Document 09/18/20 16:48 AW (Rec: 09/18/20 16:49 AW [email or web address]) Physical Therapy Plan Discharge Physical Therapy Discharge Reasons Patient Request Discharge Comments Pt called and requested discharge from current plan of care. She plans to return to her doctor for further evaluation and understands she will need a new referral if she wishes to return.
== END 2020-09-19 08:08 | disposition home or self-care (01) ==
LOC: PHYS 10:30
PROVIDERS: PCP Internal Medicine; Referring Provider Internal Medicine; Visit Provider Internal Medicine
DX: M54.31 Sciatica, right side (principal)
CPT/HCPCS: 97110; 97140; 97162

== ENCOUNTER 2020-10-30 13:10 | Emergency (ER) | payer OTHER, SELFPAY ==
[2018-09-30 15:05] VITALS: BMI 22.1
[2020-10-30 13:30] VITALS: BP 145/63; PULSE 91; RESP 16; TEMP 36.9; O2SAT 98; BMI 19.3
--- NOTE | 2020-10-30 16:40 | DI.RAD.S_ITS ---
PROCEDURE: XR WRIST RT 2V INDICATIONS: ?FB, cat bite TECHNIQUE: 2 views of the wrist were acquired. COMPARISON: [facility], CR, XR HAND RT MIN 3V, 10/30/2020, 16:42. FINDINGS: Bones: No fractures or dislocations. No suspicious bony lesions. Degenerative changes are seen throughout, which are most prominent involving the 1st carpometacarpal joint. Milder degenerative changes are seen elsewhere. Soft tissues: No radiopaque foreign bodies are seen. IMPRESSION: Unremarkable study for age, without a radiopaque foreign body seen. Dictated by: Cam James M.D. on 10/30/2020 at 16:08 Approved by: Cam James M.D. on 10/30/2020 at 16:09
--- NOTE | 2020-10-30 16:40 | DI.RAD.S_ITS ---
PROCEDURE: XR HAND RT MIN 3V INDICATIONS: Cat bite, ?FB TECHNIQUE: 3 views of the hand(s) acquired. COMPARISON: [facility], CR, XR WRIST RT 2V, 10/30/2020, 16:42. FINDINGS: Bones: No fractures or dislocations. Carpal bones are normally aligned. No suspicious bony lesions. Degenerative changes are seen throughout, which are most prominent involving the 1st carpometacarpal joint. Milder degenerative changes are seen elsewhere. Soft tissues: No suspicious soft tissue calcifications. No radiopaque foreign bodies are seen. IMPRESSION: No radiopaque foreign bodies are seen. Dictated by: Cam James M.D. on 10/30/2020 at 16:07 Approved by: Cam James M.D. on 10/30/2020 at 16:08
[2020-10-30] MEDS: ACETAMINOPHEN 325 MG TABLET 975 MG PO (17:05)
[2020-10-30] MEDS: TET,DIPH,PERTUSS(ACELL),VAC/PF 0.5 ML SYRINGE IM (17:06)
[2020-10-30 17:22] VITALS: BP 164/72; PULSE 74; O2SAT 98
[2020-10-30] MEDS: AMOXICILLIN/CLAV 875/125 MG 1 TAB PO (17:27)
--- NOTE | 2020-10-30 17:30 | ED_ITS ---
HPI - Animal Bite <Cody Miranda PA-C - Last Filed: 11/03/20 12:31> General Chief Complaint: Animal Bite Stated Complaint: cat bite, inflammation, rt hand, lethargic Time Seen by Provider: 10/30/20 16:12 Source: patient Mode of arrival: Ambulatory Limitations: no limitations History of Present Illness HPI narrative: 79-year-old female with no significant reported past medical history presents to the ED status post a cat bite sustained yesterday. Patient report that she was trying to trim her cats fingernails, when the cat got agitated and bit her on the right hand and wrist. Patient has owned a CT for several years, with no other such events. Patient states that the right hand has been getting increasingly more painful, swollen, red. Patient denies numbness, tingling, weakness. Patient denies fever, chills, chest pain, shortness of breath, nausea, vomiting, abdominal pain, lightheadedness, dizziness, syncope. Last tetanus unknown. Related Data Home Medications Medication Instructions Recorded Confirmed simvastatin 40 mg tablet 40 mg PO QDAYPM #0 06/26/10 09/30/18 docusate sodium 100 mg tablet 100 mg PO DAILY 04/05/18 09/30/18 metoprolol succinate 100 mg 100 mg PO QPM 04/05/18 09/30/18 tablet,extended release 24 hr aspirin 81 mg tablet,delayed 81 mg PO DAILY 09/27/18 09/30/18 release Previous Rx's Medication Instructions Recorded oxycodone 5 mg tablet 5 mg PO Q3HR PRN #40 tab 10/01/18 Allergies Allergy/AdvReac Type Severity Reaction Status Date / Time No Known Drug Allergies Allergy Verified 03/10/19 08:19 Review of Systems <Cody Miranda PA-C - Last Filed: 11/03/20 12:31> Constitutional Constitutional: Denies chills, Denies fatigue, Denies fever(s), Denies frequent falls, Denies lethargy and Denies weakness Eyes Eyes: Denies change in vision, Denies eye discharge, Denies irritation and Denies loss of vision ENT Ears, Nose, Mouth, and Throat: Denies change in voice, Denies dizziness, Denies neck pain, Denies sore throat and Denies throat swelling Cardiovascular Cardiovascular: Denies chest pain, Denies irregular heart rhythm, Denies lightheadedness, Denies palpitations, Denies dyspnea, Denies dyspnea on exertion and Denies orthopnea Respiratory Respiratory: Denies cough, Denies dyspnea, Denies dyspnea on exertion and Denies wheezing Gastrointestinal Gastrointestinal: Denies abdominal pain, Denies change in bowel habits, Denies diarrhea, Denies nausea and Denies vomiting Musculoskeletal Musculoskeletal: Denies neck pain and Denies numbness Integumentary/Breasts Skin/Breast: Denies pruritus, Denies erythema, Denies rash, Reports sores and Denies wounds Comments: Cat bites on right wrist, hand Neurologic Neurologic: Denies behavioral changes, Denies confusion, Denies dizziness, Denies frequent falls, Denies loss of vision, Denies numbness and Denies weakness Psychiatric Psychiatric: Denies anxiety, Denies behavioral changes, Denies confusion, Denies depression, Denies homicidal ideation and Denies suicidal ideation Endocrine Endocrine: Denies fatigue, Denies flushing and Denies palpitations Hematologic/Lymphatic Hematologic/Lymphatic: Denies easy bruising Allergic/Immunologic Allergic/Immunologic: Denies urticaria, Denies throat swelling and Denies wheezing Patient History <Cody Miranda PA-C - Last Filed: 11/03/20 12:31> Medical History Arthritis Breast cancer (01/07/16) Cardiac arrest (~12/1998) Cervical disc disease Colon cancer (07/02/10) Constipation Depression (~2015) HTN (hypertension) Hyperlipidemia Myocardial infarct (~12/1998) Osteoarthritis Shoulder pain, bilateral Skin cancer Surgical History History of arthroplasty of right shoulder (04/05/18) History of colonoscopy (09/09/17) History of lumpectomy of left breast (~02/2016) Hx of appendectomy Hx of colectomy (~06/2010) Hx of heart artery stent (~1998) Hx of hernia repair (~1967) Social History household members: spouse Smoking Status: Former smoker alcohol intake: current Smoking Status: Former smoker alcohol intake frequency: a few times a month Substance Use Type: does not use Exam <Cody Miranda PA-C - Last Filed: 11/03/20 12:31> Initial Vital Signs Initial Vital Signs: Vital Signs Temperature 98.4 F 10/30/20 13:30 Pulse Rate 91 H 10/30/20 13:30 Respiratory Rate 16 10/30/20 13:30 Blood Pressure 145/63 H 10/30/20 13:30 Pulse Oximetry 98 10/30/20 13:30 Const General: cooperative [facility] Head: normocephalic and atraumatic Ears: external ears normal and TM's normal bilaterally Nose: external nose normal and No nasal discharge Face and sinus: sinuses nontender, face symmetric, no sinus tenderness and No dry mucous membranes Mouth: oral mucosae normal and moist mucous membranes Teeth and gingiva: dentition normal Throat: tonsils normal and uvula midline Eyes General: appearance normal, both eyes and all related structures Eyelids: eyelids normal Conjunctivae: conjunctivae normal Sclera: sclerae normal Pupils: PERRL EOM: EOM intact bilaterally Neck Neck: normal visual inspection, trachea midline, No lymphadenopathy, No midline deformity and No JVD Lymphatic: No lymphedema Chest Chest: normal inspection of the chest Resp Effort & Inspection: normal respiratory effort, able to speak in complete sentences, no respiratory distress and no use of accessory muscles Auscultation: clear to auscultation bilaterally, no rales, no rhonchi and no wheezes Cardio Rate: regular rate Rhythm: regular rhythm Heart Sounds: no click, no gallops, no murmurs and no rubs Pulses: normal peripheral pulses GI Inspection: non-distended Palpation: soft, no hepatosplenomegaly, No guarding, No pulsatile mass and No tender Auscultation: normal bowel sounds Back/Spine/Pelvis Back: No CVA tenderness Cervical Spine: cervical ROM normal and No pain with cervical ROM Thoracic/Lumbar Spine: thoracic and lumbar spine normal to inspection Skin General: No jaundice and No petechiae Other: Three puncture wounds visualized on exam, 2 on the right hand and 3rd on the right wrist, All on the dorsal surface. Skin around the wounds appears red, swollen, tender to touch. Strength and sensation intact, neurovascularly intact. compartments soft. Neuro General: patient alert, patient oriented x3, gait normal and no focal motor deficits Speech: speech normal Extrem General: full ROM, no clubbing, cyanosis or edema, no pedal edema and no calf tenderness Psych Appearance: well kempt Mental Status: mental status grossly normal Attitude: cooperative Thought Content: normal and suicidality Judgment: judgment good <Nadeem Trevino DO - Last Filed: 11/07/20 18:07> Initial Vital Signs Initial Vital Signs: Vital Signs Temperature 98.4 F 10/30/20 13:30 Pulse Rate 91 H 10/30/20 13:30 Respiratory Rate 16 10/30/20 13:30 Blood Pressure 145/63 H 10/30/20 13:30 Pulse Oximetry 98 10/30/20 13:30 Course <Cody Miranda PA-C - Last Filed: 11/03/20 12:31> Course Course Narrative: X-rays show no evidence of foreign body retained. Patient's physical exam reassuring, with strength and sensation intact, no fever. Will start 1st dose of Augmentin in the ED, give Tylenol for pain, discharged home with Rx for augmentin, strict ED return precautions. Orders Ordered: Discontinued Medications Acetaminophen (Acetaminophen 325 Mg Tablet) 975 mg PO NOW ONE Stop: 10/30/20 16:44 Last Admin: 10/30/20 17:05 Dose: 975 mg Documented by: JASON Amoxicillin/Clavulanate Potassium (Amoxicillin/Clav 875/125 Mg) 1 tab PO NOW ONE Stop: 10/30/20 17:21 Last Admin: 10/30/20 17:27 Dose: 1 tab Documented by: JASON Diphtheria/Tetanus/Acell Pertussis (Tet,Diph,Pertuss(Acell),Vac/Pf 0.5 Ml Syringe) 0.5 ml IM .ONCE ONE Stop: 10/30/20 17:01 Last Admin: 10/30/20 17:06 Dose: 0.5 ml Documented by: JASON Vital Signs Vital signs: Vital Signs - 8 hr 10/30/20 13:30 10/30/20 17:22 Temperature 98.4 F Pulse Rate 91 H 74 Respiratory Rate 16 Blood Pressure 145/63 H 164/72 H Pulse Oximetry 98 98 <Nadeem Trevino DO - Last Filed: 11/07/20 18:07> Orders Ordered: Discontinued Medications Acetaminophen (Acetaminophen 325 Mg Tablet) 975 mg PO NOW ONE Stop: 10/30/20 16:44 Last Admin: 10/30/20 17:05 Dose: 975 mg Documented by: JASON Amoxicillin/Clavulanate Potassium (Amoxicillin/Clav 875/125 Mg) 1 tab PO NOW ONE Stop: 10/30/20 17:21 Last Admin: 10/30/20 17:27 Dose: 1 tab Documented by: JASON Diphtheria/Tetanus/Acell Pertussis (Tet,Diph,Pertuss(Acell),Vac/Pf 0.5 Ml Syringe) 0.5 ml IM .ONCE ONE Stop: 10/30/20 17:01 Last Admin: 10/30/20 17:06 Dose: 0.5 ml Documented by: JASON Vital Signs Vital signs: Vital Signs - 8 hr 10/30/20 13:30 10/30/20 17:22 Temperature 98.4 F Pulse Rate 91 H 74 Respiratory Rate 16 Blood Pressure 145/63 H 164/72 H Pulse Oximetry 98 98 MDM - Animal Bite <Cody Miranda PA-C - Last Filed: 11/03/20 12:31> Imaging Data Extremity x-ray #1: Radiologist's Impression: PROCEDURE: XR HAND RT MIN 3V INDICATIONS: Cat bite, ?FB TECHNIQUE: 3 views of the hand(s) acquired. COMPARISON: [facility], XR WRIST RT 2V, 10/30/2020, 16:42. FINDINGS: Bones: No fractures or dislocations. Carpal bones are normally aligned. No suspicious bony lesions. Degenerative changes are seen throughout, which are most prominent involving the 1st carpometacarpal joint. Milder degenerative changes are seen elsewhere. Soft tissues: No suspicious soft tissue calcifications. No radiopaque foreign bodies are seen. IMPRESSION: No radiopaque foreign bodies are seen. Dictated by: Cam James M.D. on 10/30/2020 at 16:07 Approved by: Cam James M.D. on 10/30/2020 at 16:08 Extremity x-ray #2: Radiologist's Impression: PROCEDURE: XR WRIST RT 2V INDICATIONS: ?FB, cat bite TECHNIQUE: 2 views of the wrist were acquired. COMPARISON: [facility], XR HAND RT MIN 3V, 10/30/2020, 16:42. FINDINGS: Bones: No fractures or dislocations. No suspicious bony lesions. Degenerative changes are seen throughout, which are most prominent involving the 1st carpometacarpal joint. Milder degenerative changes are seen elsewhere. Soft tissues: No radiopaque foreign bodies are seen. IMPRESSION: Unremarkable study for age, without a radiopaque foreign body seen. Dictated by: Cam James M.D. on 10/30/2020 at 16:08 Approved by: Cam James M.D. on 10/30/2020 at 16:09 [facility] Narrative Medical decision making narrative: 79-year-old female with no significant reported past medical history presents to the ED status post a cat bite sustained yesterday. Concern for cellulitis versus retained foreign body. Will obtain x-rays, start patient on antibiotics, give Tylenol for pain. Likely discharge with strict ED return precautions. Discharge Plan Departure Patient Disposition: Home Clinical Impression: Cat bite Qualifiers: Encounter type: initial encounter Qualified Code(s): W55.01XA - Bitten by cat, initial encounter Instructions: DI for Cat Bite Activity Restrictions/Additional Instructions: You were evaluated in the ED for a cat bite. Your x-rays did not show any retained teeth or other foreign bodies new hand. You were given some Tylenol for the pain, 1st dose of Augmentin, a Tdap booster. We are sending you home with a prescription for Augmentin for 7 days, twice a day. Please complete the full course of antibiotics. Return to the ED if your symptoms worsen, you notice redness moving up your arm, you experience fever and chills. Prescriptions: No Action simvastatin 40 MG tablet 40 mg PO QDAYPM Qty: 0 RF: 0 metoprolol succinate 100 mg Tablet Extended Release 24 Hr 100 mg PO QPM RF: 0 docusate sodium 100 mg Tablet 100 mg PO DAILY RF: 0 aspirin 81 mg Tablet,Delayed Release (Dr/Ec) 81 mg PO DAILY RF: 0 oxycodone 5 mg Tablet 5 mg PO Q3HR PRN (Reason: Pain, Moderate (4-6)) Qty: 40 RF: 0 Referrals: Gio Viera MD [Primary Care Provider] - <Nadeem Trevino, DO - Last Filed: 11/07/20 18:07> Cosign ED Attending Cosignature Attestation: Dr Trevino Co-Sign Statement: I was available for consultation during this patient's emergency department visit. This chart is signed by myself for administrative purposes only. I did not have direct contact with this patient during this visit. They were seen independently by the APC.
== END 2020-10-30 17:42 | disposition home or self-care (01) ==
PROVIDERS: Emergency Provider Student in an Organized Health Care Education/Training Program; PCP Internal Medicine
DX: S61.451A Open bite of right hand, initial encounter (principal); W55.01XA Bitten by cat, initial encounter; Z23 Encounter for immunization
CPT/HCPCS: 73100; 73130; 90471; 99283; 99284; 90715